=== PATIENT | male | born 1975 | race Caucasian/White ===

== ENCOUNTER 2020-02-27 21:19 | Outpatient (REF) | payer BC, SELFPAY ==
[2020-02-27 22:16] LABS: Abs Immature Grans 0.02 k/cumm (0.0-0.09); Absolute Basophil Count 0.03 k/cumm (0.0-0.2); Absolute Eosinophil Count 0.11 k/cumm (0.0-0.7); Absolute Lymphocyte Count 1.68 k/cumm (1.2-3.4); Absolute Monocyte Count 0.48 k/cumm (0.11-0.7); Absolute Neutrophil Count 4.22 k/cumm (1.2-6.7); Basophils % 0.5; Eosinophils % 1.7; HCT 40.4 % (40.0-50.0); HGB 14.3 g/dL (13.5-17.5); Immature Grans % 0.3 %; Lymphocytes % 25.7; Mean Corp. HGB Concentration 35.4 g/dL (32.0-36.0); Mean Corpuscular Hemoglobin 30.2 pg (27.0-33.0); Mean Corpuscular Volume 85.4 fL (80-95); Mean Platelet Volume 9.9 fL (8.0-11.0); Monocytes % 7.3; Neutrophils % 64.5; Platelet Count 271 x1000/uL (130-400); RBC 4.73 m/cumm (4.50-6.00); White Blood Cell Count 6.54 k/cumm (4.4-10.8)
[2020-02-27 22:23] LABS: ALT 44 U/L (16-63); AST 24 U/L (15-37); Albumin 4.2 g/dL (3.4-5.0); Alkaline Phosphatase 75 U/L (46-116); Anion Gap 12.5 mmol/L (3-11); BUN 27 mg/dL (7-18); Bilirubin, Total 0.6 mg/dL (0.2-1.0); CO2 23.5 mmol/L (21.0-32.0); CREATININE 1.42 mg/dL (0.70-1.30); Calcium 9.4 mg/dL (8.5-10.1); Chloride 99 mmol/L (98-107); Estimated GFR 53.67 (mL/min/1.73m2); Glucose 191 mg/dL (74-106); Potassium 4.7 mmol/L (3.5-5.1); Sodium 135 mmol/L (136-145); Total Protein 7.8 g/dL (6.4-8.2)
[2020-02-27 22:32] LABS: Hemoglobin A1C 7.8 % (3.8-5.6)
[2020-02-28 09:54] LABS: Calculated LDL 99 mg/dL (<100); Cholesterol 170 mg/dL (<200); HDL Cholesterol 44 mg/dL (40-60); Triglyceride 137 mg/dL (<150)
[2020-02-29 14:58] LABS: ANA Interpretation Positive (Negative)
== END 2020-02-27 21:39 ==
LOC: LBN 21:19
PROVIDERS: PCP Family Medicine; Visit Provider Family Medicine
DX: E78.5 Hyperlipidemia, unspecified (principal); E11.65 Type 2 diabetes mellitus with hyperglycemia; R20.8 Other disturbances of skin sensation
CPT/HCPCS: 80053; 80061; 83036; 85025; 86038

== ENCOUNTER 2020-02-29 08:02 | Outpatient (CLI) | payer BC, SELFPAY ==
[2020-03-05 21:58] LABS: SARS-CoV-2 RNA Undetected (Undetected); SARS-CoV-2 Specimen Source Nasopharynx
== END 2020-02-29 08:22 ==
PROVIDERS: PCP Family Medicine; Visit Provider Family Medicine
DX: Z11.59 Encounter for screening for other viral diseases (principal)
CPT/HCPCS: U0003

== ENCOUNTER 2022-04-30 02:06 | Outpatient (CLI) | payer BC, SELFPAY ==
--- OUTSIDE RECORDS SUMMARY | 2022-04-30 02:08 | XMS_ITS | Encounter Summary ---
:1975 Author Organization [facility] Address [address] [place] [address] Care Team Providers Name Role Phone Unavailable Primary Care Provider Unavailable Encounter Details Date Type Department Care Team Description 04/22/2006 Results Only [facility] - Zunilda Fraser, Chr istopher, conversion DO [address] [facility] [address] [facility] [address] FAIR[address] [place], [place] [address] [place] [id number] (Wo rk) Social History Tobacco Use Types Packs/Day Years Used Date Never Assessed Sex Assigned at Date Recorded Not on file documented as of this encounter Plan of Treatment Not on filedocumented as of this encounter Procedures Procedure Name Priority Date/Time Associated Diagnosis Comme nts SURGICAL PATHOLOGY Routine 04/22/2006 0:00 EDT Re sults for this procedure are i n the results section. documented in this encounter Results SURGICAL PATHOLOGY (04/22/2006 0:00 EDT) Pathology Report: SURGICAL PATHOLOGY REPORT [facility] Reports generated via electronic interface contain paige ginal data; LAB however they are lacking the format of the original re port. Caution should be taken when reading/interpreting unfo rmatted reports. Name: ? KILLIAN KRISHNAN ? Accession #: ? [id number] ? : ? 1975 (Age: 30) ??M ? Collect Date: ? 04/22/2006 ? Location: ? [facility] ? Receive Date: ? 006 ? Provider: SUNIL FRASER DO Copy to: ROBINSON TIMMONS MD ? Final Pathologic Diagnosis: A. ?Stomach, antrum, biopsy: 1. ?Antral and body type mucosa with no specific pathologic features. See comment. B. ?Esophagus, distal, biopsy: ? 1. ??Hyperplastic squ amous mucosa with increased intraepithelial eosinophils (max average 42/hpf). ??See comment. ? Comment: ? The histologic features are still compatible wi th reflux changes. Eosinophilic esophagitis cannot be ruled out. Correlat ion with endoscopic appearance and clinical feat ures is essential. Simultaneous biopsies taken from the proximal and/or mid esop hagus may help to resolve this issue. This case has been reviewed at the intrade partmental consultation conference. (Dr. Grove)/[facility] Document reviewed and electronically signed by: LUI GROVE MD Report ??Date: 04/27/2006 12:04 By the signature above, the attending physician certif ies that he/she has personally conducted a gross and/or microscopic examin ation of the described specimens and rendered or confirmed the above diagnosi s. Specimen(s) Received: A. ?Bx antrum B. ?Bx distal esophagus Clinical History: ? Gastroscopy s/p removal FB esophagus Gross Description: ? Received in Hollande' s fixative labelled Eulogio and antrum bx are two tse-pink irregular soft tiss ue fragments measuring 0.2 x 0.2 x 0.2 cm and 0.3 x 0.3 x 0.2 cm. ??The specimen is entirely submitted as (A). Received in Hollande's fixative labelled Darrell gh and bx distal esophagus are two tse-pink irregular soft tissue fragments measuring 0.3 x 0.2 x 0.2 cm and 0.3 x 0.3 x 0.2 cm. ??The specimen is entirely sub mitted as (B). (Asia Zavala)/mpl End of Report Specimen Performing Organization Address City/State/ZIP Code Phon e Number [facility] [address] [place] [address] SERVICES [facility] [address] [place] [address] documented in this encounter Visit Diagnoses Not on filedocumented in this encounter
--- OUTSIDE RECORDS SUMMARY | 2022-04-30 02:08 | XMS_ITS | Encounter Summary ---
:1975 Author Organization [facility] Address [address] [place] [address] Care Team Providers Name Role Phone Unavailable Primary Care Provider Unavailable Encounter Details Date Type Department Care Team Description 11/02/1999 Results Only [facility] - Syd Brooke MD conversion [address] [place] [address] [place] [address] [phone] Social History Tobacco Use Types Packs/Day Years Used Date Never Assessed Sex Assigned at Date Recorded Not on file documented as of this encounter Plan of Treatment Not on filedocumented as of this encounter Procedures Procedure Name Priority Date/Time Associated Diagnosis Comme [facility] CYTOPATHOLOGY Routine 11/02/1999 7:30 EST Results for this procedure are i n the results section . documented in this encounter Results CYTOPATHOLOGY (11/02/1999 7:30 EST) Pathology Report: CYTOPATHOLOGY REPORT [facility] Reports generated via electronic interface contain paige ginal data; however they are lacking the format of the original re port. Caution should be taken when reading/interpreting unfo rmatted reports. Name: ? KILLIAN KRISHNAN ? Accession #: ? [id number] : ? 1975 (Age: 23) ??M ?Collect Date: ? 03/01/2000 Location: ?Receive Date: ? 11/02/1999 Provider: ? SYD POTTER MD Copy to: ?SYD MEHTA MD ? CYTOLOGIC DIAGNOSIS: CYTOLOGIC DIAGNOSIS ? Urinary tract cytologic material, voided: ? No malignant cells identified; scant cellularit y. ? [facility] Archived Tests - Final Diagnosis Text Field: Clinical History : ;Hematuri a. ??H/O testicular CA. ??Previous chemo/radiation 5 years ago. Gross Description : 1 tube of Cytolyt Document reviewed and electronically signed by: ? Conversion for FORREST MONTANO Report Date: ??11/02/1999 00:00 By the signature above, the attending physician certif ies that he/she has personally conducted a gross and/or microscopic examin ation of the described specimens and rendered or confirmed the above diagnosi s. Specimen Type: ? Urinary Tract Cytologic Material, Voided Clinical History: ? Gross Description: ? End of Report Specimen Performing Organization Address City/State/ZIP Code Phon e Number [facility] [address] [place] [address] SERVICES [facility] [address] [place] [address] documented in this encounter Visit Diagnoses Not on filedocumented in this encounter
--- OUTSIDE RECORDS SUMMARY | 2022-04-30 02:08 | XMS_ITS | Encounter Summary ---
:1975 Author Organization [facility] Address [address] [place] [address] Care Team Providers Name Role Phone Unknown, Provider Primary Care Provider Encounter Details Date Type Department Care Team Description 02/28/2020 Lab Requisition [facility] Outr Resulting Lab, Pathology & Laboratory Provider [facility] [address] [place], [place] [address] Social History Tobacco Use Types Packs/Day Years Used Date Never Assessed Sex Assigned at Date Recorded Not on file documented as of this encounter Plan of Treatment Not on filedocumented as of this encounter Procedures Procedure Name Priority Date/Time Associated Diagnosis Comme nts ANTI NUCLEAR AB Routine 02/27/2020 7:45 EDT Resul ts for this (FRANK), IFA procedure are i n the results section. documented in this encounter Results (ABNORMAL) ANTI NUCLEAR AB (FRANK), IFA (02/27/2020 7:45 EDT) FRANK Interpretation Positive (A) Negative [facility] Comment: [facility] For titers greater than or e qual to 1:160 (except the centromere and nucleolar patterns) it is recommended that specific follow-up autoantibody testing ??(such as for dsDNA and Extractable Nuclear Antig SERVICES ens) be performed on all diffuse and/or speckled patterns NOTE: For add-on testing dsD NA is stable for 7 days refrigerated while Extractable Nuclear Antigens are only stable for 48 hours refrigerated. FRANK Titer and Pattern 1:[address] [facility] 1 Speckled [facility] Specimen Blood - Venous blood (substance) Narrative [facility] - 02/29/2020 14:54 EDT Results were obtained with the INOVA NOV A Lite HEp-2 FRANK Kit by indirect immunofluorescence. Performing Organization Address City/State/ZIP Code Phon e Number [facility] [address] [place] [address] SERVICES documented in this encounter Visit Diagnoses Not on filedocumented in this encounter Care Teams Tank Builder Helper Relationship Specialty Start Date End Date Unknown, Provider, PCP - General 07/08/15 documented as of this encounter
--- OUTSIDE RECORDS SUMMARY | 2022-04-30 02:09 | XMS_ITS | Encounter Summary ---
:1975 [place] [address] Care Team Providers Name Role Phone Ilsa Smith MD Primary Care Provider Encounter Details Date Type Department Care Team Description 04/24/2012 Telephone Allergy at [facility] Jada Guerra MD [facility] [place] [address] ALLERGY AND IMMUNOLOGY [phone] [place], [place] [address] (Wo rk) Social History Tobacco Use Types Packs/Day Years Used Date Never Smoker Sex Assigned at Date Recorded Not on file documented as of this encounter Miscellaneous Notes Telephone Encounter - Jada Guerra MD - 04/24/2012 8:18 AM EDT pt was notified of negative RAST to latex documented in this encounter Plan of Treatment Not on filedocumented as of this encounter Visit Diagnoses Not on filedocumented in this encounter Care Teams Meat Specialist Relationship Specialty Start Date End Date Ilsa Smith MD PCP - General 03/31/12 05/02/[address] [place] [address] documented as of this encounter
--- OUTSIDE RECORDS SUMMARY | 2022-04-30 02:09 | XMS_ITS | Encounter Summary ---
:1975 [place] [address] Care Team Providers Name Role Phone Ilsa Smith MD Primary Care Provider Encounter Details Date Type Department Care Team Description 10/22/2021 Orders Only Vascular Surgery Mariama Barreto APRN [facility] [place] [address] VASCULAR SURGERY [phone] [place], [place] [address] (Wo rk) Social History Tobacco Use Types Packs/Day Years Used Date Never Smoker 0 0 Smokeless Tobacco: Never Used Alcohol Use Standard Drinks/Week Comments Yes 14 (1 standard drink = 0.6 oz pure alcoh ol) Sex Assigned at Date Recorded Not on file documented as of this encounter Miscellaneous Notes Addendum Note - Mariama Barreto APRN - 10/22/2021 8:58 AM EST Addended by: MARIAMA BARRETO on: 10/22/2021 09:00 AM Modules accepted: Orders documented in this encounter Plan of Treatment Not on filedocumented as of this encounter Visit Diagnoses Not on filedocumented in this encounter Care Teams Product Support Technician Relationship Specialty Start Date End Date Ilsa Smith MD PCP - General Family Medicine 03/05/[address] [place], [place] [address] documented as of this encounter
--- OUTSIDE RECORDS SUMMARY | 2022-04-30 02:09 | XMS_ITS | Encounter Summary ---
:1975 Author Organization [place] [place] [address] Care Team Providers Name Role Phone Ilsa Smith MD Primary Care Provider Encounter Details Date Type Department Care Team Description 03/05/2020 Laboratory Appointment Lab at [facility] Critical lower limb ischemia ; [facility] [place] [phone] Social History Tobacco Use Types Packs/Day Years Used Date Never Smoker 0 0 Smokeless Tobacco: Never Used Alcohol Use Standard Drinks/Week Comments Yes 14 (1 standard drink = 0.6 oz pure alcoh ol) Sex Assigned at Date Recorded Not on file documented as of this encounter Plan of Treatment Not on filedocumented as of this encounter Procedures Procedure Name Priority Date/Time Associated Comments Diagnosis HC UA W/OUT Routine 03/05/2020 1:00 PM Critical lower limb Re sults for this MICROSCOPIC EDT ischemia procedure are in Pre-op testing the results section. ABORH RECHECK STATUS Routine 03/05/2020 12:46 Res ults for this PM EDT procedure are i n the results section. HC VENIPUNCTURE Routine 03/05/2020 12:46 Critical lower limb PM EDT ischemia Pre-op testing ABO/RH TYPING Routine 03/05/2020 12:46 Critical lower limb Res ults for this PM EDT ischemia procedure are in Pre-op testing the results section. ANTIBODY SCREEN Routine 03/05/2020 12:46 Critical lower limb R esults for this PM EDT ischemia procedure are in Pre-op testing the results section. documented in this encounter Results (ABNORMAL) Urinalysis without microscopic (03/05/2020 1:00 PM EDT) [facility] Method Time Signature Glucose UA >=1000 Negative [facility] (Critical) mg/dL [facility] Comment: Urinalysis result NOT critical without a combination of Glucose greater than or equal to 500 mg/dL AND Ketones greate r than or equal to 80 mg/dL Protein UA Negative Negative mg/dL [facility] Bilirubin UA Negative Negative mg/dL [facility] Comment: Clinical correlation required for positi ve Urine Bilirubin results as false positive may occur with some drugs and d rug related products. If a false positive is suspected a serum total bili toure should be considered if clinically indicated. Urobilinogen UA Normal Normal mg/dL [facility] pH UA 5.5 5.0 - 8.0 [facility] Blood UA Negative Negative mg/dL [facility] Ketones UA Negative Negative mg/dL [facility] Nitrite UA Negative Negative [facility] Leukocytes UA Negative Negative [facility] Appearance UA Clear Clear [facility] Spec [place] UA 1.019 1.006 - 1.030 [facility] Color UA Yellow Yellow [facility] Specimen Anatomical Collection Method Collection Time Receive d Time (Source) Location / / Volume Laterality Urine specimen 03/05/2020 1:00 PM 020 1:08 (specimen) EDT PM EDT Resulting Agency Comment Spec In Lab Byron Moreland MD URINE ORDERABLES Performing Organization Address City/State/[place] [address] ABORH Recheck Status (03/05/2020 12:46 PM EDT) [facility] Method Time Signature ABORH Type Completed [facility] Specimen Anatomical Collection Method Collection Time Receive d Time (Source) Location / / Volume Laterality Blood specimen 03/05/2020 12:46 0 (specimen) PM EDT 12:56 PM EDT Resulting Agency Comment Spec In Lab Byron Moreland MD BLOOD BANK ORDERABLES Performing Organization Address City/State/[place] [address] Antibody screen (03/05/2020 12:46 PM EDT) Patholo gist Method Time Signature Ab Screen Negative [facility] Expires at 03/17/2020 [facility] 2359 on: [facility] Specimen Anatomical Collection Method Collection Time Receive d Time (Source) Location / / Volume Laterality Blood specimen 03/05/2020 12:46 0 (specimen) PM EDT 12:56 PM EDT Resulting Agency Comment Spec In Lab Byron Moreland MD BLOOD BANK ORDERABLES Performing Organization Address City/[facility]/[place] [address] ABO/Rh Typing (03/05/2020 12:46 PM EDT) P athologist Signature ABORh Type A Neg [facility] Specimen Anatomical Collection Method Collection Time Receive d Time (Source) Location / / Volume Laterality Blood specimen 03/05/2020 12:46 0 (specimen) PM EDT 12:56 PM EDT Resulting Agency Comment Spec In Lab Byron Moreland MD BLOOD BANK ORDERABLES Performing Organization Address City/[facility]/[place] [address] documented in this encounter Visit Diagnoses Diagnosis Critical lower limb ischemia Unspecified circulatory system disorder Pre-op testing Preoperative examination, unspecified documented in this encounter Care Teams Clerical Assigner Relationship Specialty Start Date End Date Ilsa Smith MD PCP - General Family Medicine 03/05/[address] [place] [address] documented as of this encounter
--- OUTSIDE RECORDS SUMMARY | 2022-04-30 02:09 | XMS_ITS | Encounter Summary ---
:1975 [place] [address] Care Team Providers Name Role Phone Ilsa Smith MD Primary Care Provider Encounter Details Date Type Department Care Team Description 04/03/2020 Tech Visit Vascular Lab at [facility] [place] [address] Social History Tobacco Use Types Packs/Day Years [...] Name Priority Date/Time Associated Diagnosis Comme nts [place], LEGS, MULTIPLE Routine 04/03/2020 1:16 PM Blue toe syndro me of Results for this LEVELS EDT left lower extremity procedu re are in the results section. documented in this encounter Results [place]ST[place], legs, multiple levels (04/03/2020 1:16 PM EDT) Component Value Ref Test Analysis Performed At [facility] Range Method Time Signature VB Text Department: Vascular Surgery Lab [facility] Report Patient: [id number] (KILLIAN KRISHNAN) CPT: 45675 ICD10: I75.022 Referring Physician: TENISHA MORELAND MD ?? Phone: Indications: S/p left common femoral endarterectomy, ? bermeo e in [place] Diabetes mellitus: Yes ICD10 Diagnosis Code: I75.022 Findings: Right ?Pressure (mm Hg) ?? [place] ??Waveform ?TBI ?? Brachial Artery ?148 ? Dorsalis Pedis (Ankle) Arter y ?168 ? 1.14 ??Triphasic ? Posterior Tibial (Ankle) Art dante ??183 ? 1.24 ??Triphasic ? Great Toe ?138 ?0.93 ?? Left ? Pressure (mm Hg) ?? [place] ??Waveform ?TBI ?? Brachial Artery ?141 ? Dorsalis Pedis (Ankle) Arter y ?177 ? 1.20 ??Triphasic ? Posterior Tibial (Ankle) Art dante ??182 ? 1.23 ??Triphasic ? Great Toe ?122 ?0.82 ?? Interpretation: RIGHT: No significant lower extremity arterial occlusive dis ease. Normal ankle/brachial pressure ratios, ankle Doppler wa veforms and toe pressures. No identifiable change when compared to the previou s exam performed on 03/05/2020. LEFT: No significant lower extremity arterial occlusive dise ase. Normal ankle/brachial pressure ratios, ankle Doppler waveforms and toe pressures. Significant improvement compared to previous exam performed on 03/05/2020. NOTE: Hypertension is present based on D oppler derived systolic brachial blood pressure. Previous ABIs with change from previous value: Date ?RIGHT DP ?? RIGHT PT ?? RT GR TOE ??RT Sec T OE ??1.13 ? 1.26 ? 0.81 ? ---- Current ? 1.14(+.01) 1.24(-.02) 0.93(+.12) ---- Date ?LEFT DP ?LEFT PT ?LT GR TOE LT Sec T OE ??0.75 ? 0.83 ? 0.53 ? ---- Current ? 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
--- OUTSIDE RECORDS SUMMARY | 2022-04-30 02:09 | XMS_ITS | Encounter Summary ---
:1975 Author Organization [facility] [place] [address] Care Team Providers Name Role Phone Ilsa Smith MD Primary Care Provider Encounter Details Date Type Department Care Team Description 03/05/2020 [facility] [place] [address] Social History Tobacco Use Types Packs/Day Years Used Date Never Smoker 0 0 Smokeless Tobacco: Never Used Alcohol Use Standard Drinks/Week Comments Yes 14 (1 standard drink = 0.6 oz pure alcoh ol) Sex Assigned at Date Recorded Not on file documented as of this encounter Last Filed Vital Signs Vital Sign Reading Time Taken Comments Blood Pressure - - Pulse - - Temperature - - Respiratory Rate - - Oxygen Saturation 99% 03/05/2020 12:01 PM EDT Inhaled Oxygen Concentration - - Weight - - Height - - Body Mass Index - - documented in this encounter Progress Notes Maki Vaughan RN - 03/05/2020 12:30 PM EDT PAT questionnaire reviewed with patient while in Pre Admission testing. Patient reports no problems with anesthesia in the past. Pre-operative instruction booklet reviewed. Patient verbalizes a good understanding of all information. PLAN Testing: T+S and urine done. Patient sent to for a cxr. Special medication instructions: plavix / ASA - patient to continue. Procedure date: Not booked - tentative 03/14 - Dr. Moreland documented in this encounter Plan of Treatment Not on filedocumented as of this encounter Visit Diagnoses Not on filedocumented in this encounter Care Teams Infantry Weapons Officer Relationship Specialty Start Date End Date Ilsa Smith MD PCP - General Family Medicine 03/05/[address] [place] [address] documented as of this encounter
--- OUTSIDE RECORDS SUMMARY | 2022-04-30 02:09 | XMS_ITS | Encounter Summary ---
:1975 Author Organization [facility] [place] [address] Care Team Providers Name Role Phone Alisia Cuellar MD Primary Care Provider Reason for Referral Consultation (Routine) - Closed Specialty Diagnoses / Procedures Referred By Contact Refer red To Contact Vascular Surgery Diagnoses Blue toe syndrome of left lower extremity Marcus Shaikh APRN [facility] Vascular Surg [address] [facility] [place] [address] [place] [address] Phone: Referral ID Status Reason Start Date Expiration Date Visits V isits Requested Authorized [id number] Closed Consult, 03/01/2020 03/01/2021 1 1 Test & Treat Reason for Visit Reason Comments Toe Pain Encounter Details Date Type Department Care Team Description 03/01/2020 Emergency Emergency Department Jada Bl ue toe syndrome of left lower extremity; [facility]ital Pain in toe of left foot; [facility] Kelly damon Type 2 diabetes mellitus wit h other specified complication, without long-term current use of insulin; [place] [address] PAD (peripheral artery disea se); [phone] Ischemia of chuck t Social History Tobacco Use Types Packs/Day Years Used Date Never Smoker Smokeless Tobacco: Never Used Sex Assigned at Date Recorded Not on file documented as of this encounter Last Filed Vital Signs Vital Sign Reading Time Taken Comments Blood Pressure 161/81 03/01/2020 3:48 PM EDT Pulse 79 03/01/2020 11:14 AM EDT Temperature 36.8 ??C (98.2 ??F) 03/01/2020 11:14 AM EDT Respiratory Rate 16 03/01/2020 11:14 AM EDT Oxygen Saturation 96% 03/01/2020 3:48 PM EDT Inhaled Oxygen Concentration - - Weight 89.4 kg (197 lb) 03/01/2020 11:14 AM EDT Height - - Body Mass Index 28.27 04/19/2012 9:59 AM EDT documented in this encounter Discharge Instructions Discharge InstructionsMarcus Shaikh APRN - 03/01/2020 4:26 PM EDT You were seen in the emergency department and evaluated for pain and discoloration in toes in your left foot. You were seen by vascular surgery and had CT imaging that showed plaque buildup in one of the arteries in your left leg which is likely the source of your symptoms. You have been started on 2 new medications, Plavix which is an antiplatelet medicine and Lipitor which is a statin. Your potassium was mildly elevated but improved to 5.0 after IV fluids. You may wish to discuss withyour primary care provider whether your Lisinopril is contributing to this. Take these as directed, as we discussed being on Plavix and continuing your aspirin 81 mg by mouth daily which we recommend does increase your risk of bleeding. Follow-up with your primary care provider in 7-10 days. You have been referred to vascular surgery and they will follow-up with you next week. Return to the ED with any new, worsening or concerning symptoms, progressive numbness, tingling or cold toes/extremity. AttachmentsThe following attachments cannot be sent through Care Everywhere.PAD (Peripheral Arterial Disease): Leg ([place])Aspirin and Antiplatelets: Cardiovascular Prevention: Safety ([place])documented in this encounter Medications at Time of Discharge Medication Sig Dispensed Refills Start Date End Date lisinopriL Take 20 mg by mouth 0 01/09/2020 (Prinivil;Zestril) 20 mg daily. Tablet metFORMIN (GLUCOPHAGE) Take 500 mg by 0 0 1,000 mg Tablet mouth 2 times daily (with meals). aspirin EC 81 mg Tablet, Take 81 mg by mouth 0 Delayed Release (E.C.) daily. clopidogreL (Plavix) 75 mg Take 1 tablet by 30 tablet 0 11/201903/16/2020 Tablet mouth daily. atorvastatin (Lipitor) 40 Take 1 tablet by 30 tablet 0 11/201903/16/2020 mg Tablet mouth every evening. documented as of this encounter ED Notes Brisa Fong RN - 03/01/2020 3:23 PM EDT Pt reports worsening pain. 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 Ambulatory to restroom with stable gait. Marcus Shaikh APRN - 03/01/2020 12:20 PM EDT Patient Name: Sameer Krishann Patient Age: 44 y.o. Patient : 1975 Encounter Date: 03/01/2020 Chief Complaint Toe Pain History of Present Illness Sameer Krishnan is a 44 y.o. male with PMH notable for type 2 diabetes mellitus, hypertension who presents for evaluation of cold toes. Patient reports 3weeks discoloration, coolness and pain in his left great toe. This similar thing happened in August but resolved on its own. He called his PCP today as he noted that his fourth and fifth toes were also cool and blue. This has not happened in his hands or his right foot. He denies any numbness or tingling in his toesor foot. Pain is worse with ambulation and dependency however it does bother him at night. He has type 2 diabetes with his last hemoglobin A1c around 7%. He takes metformin but reports he is only able to tolerate half a tablet in the morning. He does not check his glucose regularly. He has not paid particular attention to his diet regarding his diabetes. He is a non-smoker and no tobacco use. Fever, chills. No other skin changes or rash. No chest pain, tightness or pressure. No shortness of breath or cough. No abdominal pain or change to bowel or bladder. Has not noticed any significant swelling in his extremities. Does not notice any wounds. The history is provided by the patient. Review of Systems ROS as above with pertinent positives and negatives, otherwise 10 systems are reviewed and negative. PMH, PSH, SH, medications and allergies reviewed & updated in chart as appropriate. Physical Exam BP 161/81 Pulse 79 Temp 36.8 ??C (98.2 ??F) (Oral) Resp 16 Wt 89.4 kg (197 lb) SpO2 96% BMI 28.27 kg/m?? Physical Exam Constitutional: General: He is not in acute distress. Appearance: Normal appearance. HENT: Head: Normocephalic. Nose: Nose normal. Mouth/Throat: Mouth: Mucous membranes are moist. Pharynx: Oropharynx is clear. Eyes: Extraocular Movements: Extraocular movements intact. Pupils: Pupils are equal, round, and reactive to light. Neck: Musculoskeletal: Normal range of motion and neck supple. Cardiovascular: Rate and Rhythm: Normal rate and regular rhythm. Pulses: Dorsalis pedis pulses are detected w/ Doppler on the right side. Posterior tibial pulses are detected w/ Doppler on the right side. Pulmonary: Effort: Pulmonary effort is normal. No respiratory distress. Breath sounds: Normal breath sounds. Abdominal: General: Bowel sounds are normal. Palpations: Abdomen is soft. Tenderness: There is no abdominal tenderness. Musculoskeletal: Normal range of motion. Right lower leg: No edema. Left lower leg: No edema. Skin: Comments: Left first toe cool and bluish in color with some mottling. Left fourth and fifth toe also slightly cool and slightly bluish in color. With dependency has increased rubor. Also with dependency has some question of livedo reticularis in the foot. Neurological: General: No focal deficit present. Mental Status: He is alert and oriented to person, place, and time. Mental status is at baseline. Psychiatric: Mood and Affect: Mood normal. Behavior: Behavior normal. ED Course ED Course as of Mar 01 2058 Sat Mar 01, 2020 1225 Consult to vascular surgery 1229 EKG reviewed, no previous EKG available for comparison, nonspecific ST abnormalities noted in V2 however also noted wandering baseline, no changes in contiguous leads, no T wave inversion, incomplete right bundle. EKG 12 Lead 1254 WBC: 6.2 1254 Hemoglobin: 14.3 1254 Hematocrit: 40.7 1254 Platelets: 218 1327 Hemoglobin A1C(!): 7.9 1327 BUN(!): 24 1327 Creatinine: 1.17 1327 Sodium: 135 1327 No EKG findings Potassium(!): 5.5 1612 Potassium: 5.0 1616 Prelim-- 1. No significant stenosis of the lower extremity runoff, with specific attention to the left lower extremity. 2. Severe focal narrowing at the proximal left common femoral artery. 3. Focal severe narrowing at the origin of the SMA and bilateral renal arteries. CT Angiogram Lower Extremity Bilat (Generic) History, examination Vitals, nursing notes reviewed Diagnostics Reviewed and interpreted independently Imaging CT Angiogram Lower Extremity Bilat (Generic) Final Result 1. No significant stenosis of the lower extremity runoff, with specific attention to the left lower extremity. 2. Severe focal narrowing at the proximal left common femoral artery. 3. Focal severe narrowing at the origin of the SMA and bilateral renal arteries. Preliminary report signed by: Juliette Peralta at 03/01/2020 3:39 PM I have personally reviewed the image(s) and the resident's interpretation and agree with the findings, Shakila Joseph at 03/01/2020 5:04 PM Thank you for letting us participate in the care of this patient. For questions regarding this report, please contact the number below. Labs Recent Results (from the past 24 hour(s)) Basic Metabolic Panel (non-fasting) Result Value Ref Range Glucose Lvl 171 65 - 199 mg/dL BUN 24 (H) 10 - 20 mg/dL Creatinine 1.17 0.80 - 1.50 mg/dL Sodium 135 135 - 145 mmol/L Potassium 5.5 (H) 3.5 - 5.0 mmol/L Chloride 101 98 - 107 mmol/L CO2 23 22 - 31 mmol/L Anion Gap 11 5 - 15 mmol/L Calcium 9.8 8.5 - 10.5 mg/dL eGFR 74 >=60 mL/min/1.73 m?? eGFR 86 >=60 mL/min/1.73 m?? Prothrombin Time Result Value Ref Range PT 10.7 9.4 - 12.5 sec INR 0.9 APTT Result Value Ref Range PTT 33 25 - 37 sec Hemoglobin A1c Result Value Ref Range Hemoglobin A1C 7.9 (H) 4.3 - 5.6 % Est Avg Gluc 180 mg/dL Lipid Panel (Reflex Direct LDL) Result Value Ref Range Chol, Total 146 mg/dL Triglycerides 110 mg/dL HDL 44 mg/dL LDL Cholesterol 80 mg/dL Chol/HDL Ratio 3.3 ratio Lipid Interpretation See Note Hemogram Result Value Ref Range WBC 6.2 4.0 - 9.5 x10(3)/mcL RBC 4.76 4.58 - 5.54 x10(6)/mcL Hemoglobin 14.3 13.7 - 16.5 gm/dL Hematocrit 40.7 40.5 - 48.5 % MCV 85.5 82.9 - 93.1 fL MCH 30.0 27.5 - 32.1 pg MCHC 35.1 32.0 - 35.7 gm/dL Platelets 218 145 - 357 x10(3)/mcL RDWSD 39.1 36.0 - 45.0 fL RDWCV 12.5 11.4 - 13.8 % MPV 9.3 7.6 - 12.9 fL nRBC % Auto 0.0 % nRBC Abs Auto 0.000 0.000 - 0.000 x10(3)/mcL Differential, Automated Result Value Ref Range Neutrophils % 60.5 % Neutr Abs (ANC) 3.77 1.70 - 6.10 x10(3)/mcL Lymphocytes % 29.3 % Lymphocytes Abs 1.8 0.9 - 3.2 x10(3)/mcL Monocytes % 7.2 % Monocyte Abs 0.4 0.3 - 0.9 x10(3)/mcL Eosinophils % 2.2 % Eosinophils Abs 0.1 0.0 - 0.4 x10(3)/mcL Basophils % 0.5 % Basophils Abs 0.0 0.0 - 0.1 x10(3)/mcL Immature Gran % 0.30 % Qi Gran Abs 0.02 0.00 - 0.04 x10(3)/mcL Gold Tube HOLD Result Value Ref Range Gold Hold Sample in lab. Hepatic Function Panel Result Value Ref Range Total Protein 7.7 6.1 - 8.0 gm/dL Albumin 4.5 3.2 - 5.2 gm/dL AST 16 0 - 39 unit/L ALT 30 0 - 55 unit/L Alk Phos 68 40 - 130 unit/L Total Bilirubin 0.6 0.2 - 1.3 mg/dL Bili, Direct 0.1 0.0 - 0.3 mg/dL Potassium Result Value Ref Range Potassium 5.0 3.5 - 5.0 mmol/L Medications As noted below and documented in MAR Medications aspirin chewable tablet 243 mg (243 mg Oral Given 03/01/20 1237) iohexoL (OMNIPAQUE) 350 mg/mL solution 0-200 mL (150 mLs Intravenous Given 03/01/20 1433) sodium chloride 0.9% 1,000 mL IV bolus ( Intravenous Stopped 03/01/20 1400) acetaminophen (Tylenol) tablet 1,000 mg (1,000 mg Oral Given 03/01/20 1549) Procedures None MDM, Assessment and Plan MDM: 44 y.o. male who presents as above for evaluation of ischemic toes on left foot. He is afebrile and hemodynamically stable. Physical exam notable for decreased perfusion in the left first, fourth and fifth toes. Pedal pulses are intact as are popliteal. His labs are initially notable for a potassium of 5.5 which improved to 5 after IV normal saline, I suspect this may be secondary to his lisinopril and I discussed that he should talk about this with his physician who prescribes it. Vascular was consulted, a CT angiogram aorta with runoff was obtained which showed findings above; common femoral atherosclerosis which is likely source of symptoms. Hemoglobin A1c is 7.9%; we discussed that he should follow-up with his PCP as well regarding management of his diabetes including appropriate medication management, insulin if needed, diet control and glucose monitoring. Lipid panel is reassuring without any significant elevated glycerides or cholesterol. He received aspirin while here and Tylenol. EKG was reassuring. Also of note CT did not show any atherosclerotic aortic disease. Consideration was given to large arterial thrombosis/clot, paradoxical embolism, vasoconstriction/spasm. I suspect his symptoms are most consistent with blue toe syndrome. Assessment: 1. Blue toe syndrome of left lower extremity 2. Pain in toe of left foot 3. Type 2 diabetes mellitus with other specified complication, without long-term current use of insulin 4. PAD (peripheral artery disease) Plan: Discharge Medication List as of 03/01/2020 4:26 PM START taking these medications Details clopidogreL (Plavix) 75 mg Tablet Take 1 tablet by mouth daily., Disp-30 tablet, R-0, Normal atorvastatin (Lipitor) 40 mg Tablet Take 1 tablet by mouth every evening., Disp- 30 tablet, R-0, Normal I had a discussion with patient regarding dual antiplatelet therapy and increase with risk of bleeding, we discussed activity monitoring and restriction as well as increased risk of bleeding with minortrauma Referral to vascular surgery Continue aspirin 81 mg a day Follow up with PCP in 1 week, vascular Return precautions were discussed with the patient; patient expressed understanding and is in agreement with plan Dispo: Discharge to home This note was dictated, at least, in part with [employer] (formerly [employer]) Dictation software. Marcus Shaikh APRN 03/01/202101 documented in this encounter Miscellaneous Notes Consult Note - Tae Tyson MD - 03/01/2020 3:20 PM EDT [facility] Department of General Surgery Consult Note Consultation Requested by: Emergency department History of Present Illness: We are seeing Sameer Krishnan today for evaluation and advice about blue toe syndrome. Sameer Krishnan is a 44 y.o. male with a history of hypertension, diabetes (non-insulin dependent),testicular cancer and rhabdomyosarcoma who presents with approximately 3 weeks of left great toe pain and discoloration. He reports that symptoms first began in August. His left great toe became acutely painful and mottled in appearance. This initially improved but then recurred 3-4 weeks ago. This has persisted with waxing and waning severity. He notes that his left fourth toe is also painful and discolored. He has never experience similar symptoms. The pain wakes him from sleep. He reports trouble walking (limited by pain in the toes) but denies claudication, rest pain, tissue loss. He denies history of TN, CAD, or stroke. He also denies any history of lower extremity claudication and reports that before he was limited by left toe pain he is able to walk for miles without stoppingto rest. He has no personal or family history of bleeding or clotting disorders. Home medications include lisinopril and metformin. Past Medical History: Sameer Krishnan has no past medical history on file. Past Surgical History Sameer Krishnan has no past surgical history on file. Medications No current facility-administered medications on file prior to encounter. Current Outpatient Medications on File Prior to Encounter Medication Sig Dispense Refill ??? lisinopriL (Prinivil;Zestril) 20 mg Tablet Take 20 mg by mouth daily. ??? metFORMIN (GLUCOPHAGE) 1,000 mg Tablet Take 500 mg by mouth daily. ??? aspirin EC 81 mg Tablet, Delayed Release (E.C.) Take 81 mg by mouth daily. Allergies Allergies Allergen Reactions ??? Bandage [Adhesive Bandage] Rash ??? Pcn [Penicillins] CIS - Hives Family History: The patient's family history is not on file. Social History: Sameer Krishnan reports that he has never smoked. He has never used smokeless tobacco. Review of Systems: As stated above, otherwise negative Physical Exam: Temp: [36.8 ??C (98.2 ??F)] Heart Rate: [79] Resp: [16] BP: (149-176)/(80-89) SpO2: [100 %] Heart Rate from SpO2: [75 bpm] General: alert, no acute distress Head: Atraumatic, non cyanotic Cardiac: Regular rate Pulmonary: nl respiratory effort, no WRR Abdominal: soft, non tender, non distended Neuro: grossly intact, follows commands, AAO x3. Extremities: LLE: D1 and D4 blue in color, tender, no tissue loss. Feet otherwise warm. Motor and sensory function intact. DP and PT signals. RLE: warm, pink, no tenderness, palpable DP and PT pulses. Labs: Recent Labs 03/01/20 1219 WBC 6.2 HGB 14.3 HCT 40.7 PLATELET 218 Recent Labs 03/01/20 1219 NA 135 K 5.5* CL 101 CO2 23 BUN 24* CREATININE 1.17 No results for input(s): AST, ALT, ALKPHOS, BILITOT, BILIDIR in the last 7068 hours. Recent Labs 03/01/20 1219 CALCIUM 9.8 Recent Labs 03/01/20 1219 PT 10.7 INR 0.9 PTT 33 No results for input(s): CK, TROPONINT, PROBNP in the last 168 hours. No results for input(s): CRP, SEDRATE in the last 7068 hours. Imaging: CT ANGIOGRAM LOWER EXTREMITY BILAT IMPRESSION 1. No significant stenosis of the lower extremity runoff, with specific attention to the left lower extremity. 2. Severe focal narrowing at the proximal left common femoral artery. 3. Focal severe narrowing at the origin of the SMA and bilateral renal arteries. Impression: Sameer Krishnan is a 44 y.o. male with a history of hypertension, diabetes (non-insulindependent), testicular cancer and rhabdomyosarcoma who presents with symptoms consistent with blue toe syndrome. A CT-A aorta with lower extremity runoff was obtained with revealed focal narrowing at the proximal left [facility] as well as narrowing at the origin of the SMA and renal arteries. No other significant findings were noted. Stable for discharge to home with close follow up; please see recommendations to follow. Recommendation: - Patient should be started on daily [id number], plavix 75mg, and atorvastatin 40mg. - He should follow up in vascular surgery clinic on Tuesday, 03/05. Vascular surgery will coordinatethis appointment. Thank you for this consult. If you have any questions regarding this consult, please page [phone] if you have any further questions. Alex Lynne MD General Surgery Consult Pager [phone] Vascular Surgery Senior Patient seen. History of L D1 blue toe in August which resolved and then over last 3-4 weeks D1 blue again with D4 also now blue over last week. Discussed possible etiologies. Discussed importance of ensuring excellent glucose control. Initiation of asa, plavix, high intensity statin and taking thesemedications regularly. CTA, while did not visualize thoracic aorta, demonstrates some infrarenal aortic plaque with L ilic and MANAGER [facility] disease as possible sources of his primarily L sided emboli. Plan for clinic visit this week with Dr. Moreland. Tae Tyson MD ED Triage - Alpesh Dupont RN - 03/01/2020 11:18 AM EDT Pt to ED 10B for c/o left foot/toe pain 7/10 at rest with concern for clot or circulation problem per PCP. Per pt, symptoms began in August while on vacation in [place]. Pt thought it was just a sunburn. Upon calling his PCP today due to worsening pain, he was told to come to [facility] for concern for possible clot. A/o x 4. Skin wpd. Great toe and second third toes of left foot slightly dusky in color. Pt able to ambulate to room with no obvious discomfort but states pain is worse standing or ambulating. documented in this encounter Plan of Treatment Scheduled Referrals Name Type Priority Associated Diagnoses Order S chedule Referral to Outpatient Referral Routine Blue toe syndrome of Ordered: Vascular Surgery left lower extremity 11/2019 documented as of this encounter Procedures Procedure Name Priority Date/Time Associated Comments Diagnosis HC POTASSIUM STAT 03/01/2020 3:20 PM Results f or this EDT procedure are i n the results section. CT ANGIOGRAM AORTA STAT 03/01/2020 2:32 PM Ischemia of foot Results for this LOWER EXTREMITY RUNOFF EDT proce dure are in the results section. HEMOGRAM STAT 03/01/2020 12:19 Results for this PM EDT procedure are i n the results section. DIFFERENTIAL, AUTOMATED STAT 03/01/2020 12:19 Results for this PM EDT procedure are i n the results section. GOLD TUBE HOLD STAT 03/01/2020 12:19 Results f or this PM EDT procedure are i n the results section. HC PARTIAL STAT 03/01/2020 12:19 Results for this THROMBOPLASTIN TIME PM EDT procedur e are in the results section. HC PROTHROMBIN TIME STAT 03/01/2020 12:19 Resu lts for this PM EDT procedure are i n the results section. HC CBC,PLT & AUTO DIFF STAT 03/01/2020 12:19 PM EDT HC HEMOGLOBIN A1C STAT 03/01/2020 12:19 Result s for this PM EDT procedure are i n the results section. HEPATIC FUNCTION PANEL STAT 03/01/2020 12:19 R esults for this PM EDT procedure are i n the results section. LIPID PANEL (REFLEX STAT 03/01/2020 12:19 Resu lts for this DIRECT LDL) PM EDT procedure are i n the results section. BASIC METABOLIC PANEL STAT 03/01/2020 12:19 Re sults for this (NON-FASTING) PM EDT procedure are in the results section. EKG 12-LEAD STAT 03/01/2020 11:47 Results for this AM EDT procedure are i n the results section. documented in this encounter Results Potassium (03/01/2020 3:20 PM EDT) P athologist Signature Potassium 5.0 3.5 - 5.0 JADA DAYRON mmol/L [facility] Comment: Please note: ??Patients with WBC >100,00 0 may have falsely elevated Potassium levels. ??For accurate Potassium quantif ication in these patients send serum separator tube (gold top) for subsequent determinations. ??Contact the Clinical Chemistry Laboratory if there are any qu estions. Specimen Anatomical Collection Method Collection Time Receive d Time (Source) Location / / Volume Laterality Blood specimen 03/01/2020 3:20 PM 020 3:24 (specimen) EDT PM EDT Resulting Agency Comment Spec In Lab Marcus Shaikh APRN CHEMISTRY ORDERABLES Performing Organization Address City/State/ZIP Code Phon e Number [place] [id number] Angiogram Aortic Lower Extremity Runoff (03/01/2020 2:32 PM EDT) Anatomical Region Laterality Modality Abdomen Computed Tomography Specimen (Source) Anatomical Location Collection Method / Collectio n Time Received Time / Laterality Volume Impressions 03/01/2020 5:04 PM EDT 1. ??No significant stenosis of the lower extremity runoff, with specific attention to the left lower extremity. 2. ??Severe focal narrowing at the proxi mal left common femoral artery. 3. ??Focal severe narrowing at the origi n of the SMA and bilateral renal arteries. Preliminary report signed by: Juliette Peralta at 03/01/2020 3:39 PM I have personally reviewed the image(s) and the resident's interpretation and agree with the findings, Shakila cardozo 03/01/2020 5:04 PM Thank you for letting us participate in the care of this patient. For questions regarding this report, please contact e number below. ? Narrative 03/01/2020 5:04 PM EDT EXAMINATION: CT ANGIOGRAM LOWER EXTREMITY BILAT (GENERIC) CLINICAL HISTORY: left toes, ischemia; e ed stenosis, other pathology TECHNIQUE: Helical CTA of the abdomen, p yesica and lower extremities was performed following intravenous administ ration of 150cc of Omnipaque 350. MPRs were performed. COMPARISON: None FINDINGS: VASCULAR FINDINGS Abdominal aorta: Atherosclerotic calcifi cations and plaque throughout the abdominal aorta without hemodynamically significant stenosis. No aneurysm. Celiac: No stenosis. focal severe narrow ing at the origin of the splenic artery. SMA: Severe focal narrowing at the origi n. Right renal artery: Severe focal narrowi ng at the origin. Left renal artery: Severe focal narrowin g at the origin. UZIEL: No stenosis at origin. RIGHT LOWER EXTREMITY Common iliac artery: Widely patent. External iliac artery: Widely patent. Internal iliac artery: Widely patent. Common femoral artery: Widely patent. Superficial femoral artery: Widely paten t. Profundus femoral artery: Widely patent. Popliteal artery: Widely patent Anterior tibial artery: Widely patent. Tibio-peroneal trunk: Widely patent. Posterior tibial artery: Widely patent. Peroneal artery: Widely patent. Dorsalis pedis: Opacified. Plantar arteries: Opacified. LEFT LOWER EXTREMITY Common iliac artery: Widely patent. External iliac artery: Widely patent. Internal iliac artery: Severe focal narr owing at the origin. Common femoral artery: Severe focal narr owing at the proximal artery. Superficial femoral artery: Mild focal n arrowing at the mid thigh. Profundus femoral artery: Widely patent. Popliteal artery: Widely patent Anterior tibial artery: Widely patent. Tibio-peroneal trunk: Widely patent. Posterior tibial artery: Patent. Peroneal artery: Patent. Dorsalis pedis: Opacified. Plantar arteries: Opacified. NON-VASCULAR FINDINGS Lower chest: Normal. Liver: None Bile ducts: Nondilated. Gallbladder: No calcified gallstones. No rmal caliber wall. Pancreas: Normal attenuation without penny eneida dilatation. Spleen: Normal. Kidneys: Normal. Adrenals: Normal. Urinary Bladder: Apparent anterior bladd er wall thickening could be related to underdistention. Equivocal small right u reterocele with dilatation of mid and distal right ureter. The upper collectin g system is normal. No obstructive nephrograms seen. Lymph Nodes: No enlarged lymph nodes. Bowel: Nondilated, no wall thickening. ? ? Peritoneum and mesentery: No ascites, fr ee air, or loculated fluid collection. No mesenteric inflammation. Abdominal wall: Postsurgical changes sarita ng the anterior abdominal wall. Osseous structures: No suspicious findin gs. Marcus Wis[place] DISPATCHER AUTOMOBILE RENTAL IMG CT ORDERABLES Hepatic Function Panel (03/01/2020 12:19 PM EDT) athologist Signature Total Protein 7.7 6.1 - 8.0 [facility]/dL [facility] Albumin 4.5 3.2 - 5.2 [facility] gm/dL [facility] AST 16 0 - 39 [facility] DAY[place] unit/L [facility] ALT 30 0 - 55 [facility] [place] unit/L [facility] Alk Phos 68 40 - 130 [facility]/L [facility] Total 0.6 0.2 - 1.3 [facility] Bilirubin mg/dL [facility] Bili, Direct 0.1 0.0 - 0.3 [facility] [place] mg/dL [facility] Specimen Anatomical Collection Method Collection Time Receive d Time (Source) Location / / Volume Laterality Blood specimen Venous Draw / 03/01/2020 12:19 03/01/20 20 (specimen) Unknown PM EDT 12:36 PM EDT Resulting Agency Comment Spec In Lab Marcus [place] DISPATCHER [employer] RENTAL CHEMISTRY ORDERABLES Performing Organization Address City/State/[place] [address] Gold Tube HOLD (03/01/2020 12:19 PM EDT) athologist Signature Gold Hold Sample in [facility] lab. [facility] Specimen Anatomical Collection Method Collection Time Receive d Time (Source) Location / / Volume Laterality Blood specimen Venous Draw / 03/01/2020 12:19 03/01/20 20 (specimen) Unknown PM EDT 12:28 PM EDT Marcus [place]acaico[place] DISPATCHER [employer]BI[employer] RENTAL CHEMISTRY ORDERABLES Performing Organization Address City/[facility]/[place] [address] Differential, Automated (03/01/2020 12:19 PM EDT) P athologist Signature Neutrophils % 60.5 % [facility] Neutr Abs (ANC) 3.77 1.70 - [facility] 6.10 [facility] x10(3)/[facility] LABORATORY Lymphocytes % 29.3 % [facility] Lymphocytes Abs 1.8 0.9 - 3.2 [facility] x10(3)/[facility] LABORATORY Monocytes % 7.2 % [facility] Monocyte Abs 0.4 0.3 - 0.9 [facility] x10(3)/[facility] LABORATORY Eosinophils % 2.2 % [facility] Eosinophils Abs 0.1 0.0 - 0.4 [facility] x10(3)/[facility] LABORATORY Basophils % 0.5 % [facility] Basophils Abs 0.0 0.0 - 0.1 [facility] x10(3)/[facility] LABORATORY Immature Gran % 0.30 % [facility] Comment: Immature granulocytes(IG's)percentage an d absolute count will include metamyelocytes, myelocytes, and promyelo cytes. Blood smears from CBCs yielding IG's will be scanned manually for concor dance. If this scan disagrees with the automated IG or if promyelocytes are not ed, a manual differential will be performed. Qi Gran Abs 0.02 0.00 - 0.04 x10(3)/[facility]ORY Specimen Anatomical Collection Method Collection Time Receive d Time (Source) Location / / Volume Laterality Blood specimen 03/01/2020 12:19 0 (specimen) PM EDT 12:28 PM EDT Resulting Agency Comment Spec In Lab Marcus [place]aca[place] DISPATCHER [employer] RENTAL HEMATOLOGY ORDERABLES Performing Organization Address City/[facility]/[place] [address] Hemogram (03/01/2020 12:19 PM EDT) athologist Signature WBC 6.2 4.0 - 9.5 [facility] x10(3)/[facility] LABORATORY RBC 4.76 4.58 - [facility] [place] 5.54 [facility] x10(6)/[facility] LABORATORY Hemoglobin 14.3 13.7 - [facility] 16.5 gm/dL [facility] Hematocrit 40.7 40.5 - [facility] 48.5 % [facility] MCV 85.5 82.9 - [facility] 93.1 [facility] LABORATORY MCH 30.0 27.5 - [facility] 32.1 pg [facility] MCHC 35.1 32.0 - [facility] 35.[facility] gm/dL [facility] Platelets 218 145 - 357 [facility] x10(3)/[facility] LABORATORY RDWSD 39.1 36.0 - [facility] 45.0 [facility] LABORATORY RDWCV 12.5 11.4 - [facility] [place] 13.8 % [facility] MPV 9.3 7.6 - 12.9 [facility] LABORATORY nRBC % Auto 0.0 % [facility] nRBC Abs Auto 0.000 0.000 - [facility] 0.000 [facility] x10(3)/[facility] LABORATORY Specimen Anatomical Collection Method Collection Time Receive d Time (Source) Location / / Volume Laterality Blood specimen 03/01/2020 12:19 0 (specimen) PM EDT 12:28 PM EDT Resulting Agency Comment Spec In Lab Marcus Shaikh APRN HEMATOLOGY ORDERABLES Performing Organization Address City/State/ZIP Code Phon e Number [address] Lipid Panel (Reflex Direct LDL) (03/01/2020 12:19 PM EDT) athologist Signature Chol, Total 146 mg/dL [facility] Comment: Lower Risk: <200 mg/dL Average Risk: 200-239 mg/dL Higher Risk: >tq=836 mg/dL Triglycerides 110 mg/dL [facility] Comment: Average Risk/Lower Risk: <150 mg/dL Borderline High Risk: 150-199 mg/dL High Risk: 200-499 mg/dL Very High Risk: >zi=140 mg/dL HDL 44 mg/dL [facility] Comment: Males: ?? Higher Risk: <40 mg/dL Females: ?? HIgher Risk: <50 mg/dL LDL Cholesterol 80 mg/dL [facility] Comment: Lowest Risk: <100 mg/dL Lower Risk: 100-129 mg/dL Borderline High Risk: 130-159 mg/dL High Risk: 160-189 mg/dL Very High Risk: >rh=953 mg/dL Chol/HDL Ratio 3.3 ratio [facility] Lipid Interpretation See Note [facility] Comment: Lipid management should be guided by a p atient? s ASCVD risk, goals and preferences. ACC/AHA Guidelines recommend high intens ity statin if clinical ASCVD or LDL greater than or equal to 190 mg/dL. http://[employer]/CXF-FJL-Gwsmvtlnl Adults aged 40-75 with LDL 70-189 mg/dL should have their 10 year ASCVD risk estimated with the ACC/AHA ASCVD risk es timator http://tools.acc.org/JSBOU-Hgip-Hhxjmawx r/ Statin should be discussed if risk great er than or equal to 7.5% in non-diabetics. With diabetes, moderate i ntensity statin is recommended if risk less than 7.5%, high intensity if risk g reater than or equal to 7.5%. Annual lipid monitoring on statins is no t necessary. Evaluate secondary causes of Triglycerid es greater than 500 mg/dL or LDL greater than 190 mg/dL: See table 6 of A CC/AHA Guideline. Lifestyle modification is a critical com ponent of ASCVD risk reduction. Specimen Anatomical Collection Method Collection Time Receive d Time (Source) Location / / Volume Laterality Blood specimen 03/01/2020 12:19 0 (specimen) PM EDT 12:28 PM EDT Resulting Agency Comment Spec In Lab Marcus Shaikh APRN CHEMISTRY ORDERABLES Performing Organization Address City/State/[place] [address] (ABNORMAL) Hemoglobin A1c (03/01/2020 12:19 PM EDT) Analysis Performed At Patho logist Time Signature Hemoglobin A1C 7.9 (H) 4.3 - 5.6 [facility] Comment: Reference Range: 4.3 - 5.6% 5.7 - 6.4% - Increased Risk of Developin g Diabetes Mellitus >= 6.5% - Consistent with diagnosis of D iabetes Mellitus In the absence of hyperglycemia (i.e. pl asma glucose > 200 mg/dL) or classic symptoms of hyperglycemia a repeat measu rement of HbA1c should be performed on a separate sample to confirm the diagnos is. Diagnosis and Classification of Diabetes Mellitus, Diabetes Care 2013; 36: Suppl. 1, X57-80 Est Avg Gluc 180 mg/dL [facility] Comment: eAG equivalents for HbA1c percentages: HbA1c(%) ?eAG(mg/dL) 6.0 ?126 6.5 ?140 7.0 ?154 7.5 ?169 8.0 ?183 8.5 ?197 9.0 ?212 9.5 ?226 10.0 ? 240 Limitations: The eAG calculation has not been validated on women, individuals below 18 years old and above 70 years old, and individuals with hemoglobinopathies. Additional resources are available on [facility] ADA website. Carl MATTHEWS, Bobby J, Vu R, et al. ??Tr anslating the A1C assay into estimated average glucose values. ??Diabetes Care 2008:31(8):6891-4314. Specimen Anatomical Collection Method Collection Time Receive d Time (Source) Location / / Volume Laterality Blood specimen 03/01/2020 12:19 0 (specimen) PM EDT 12:28 PM EDT Resulting Agency Comment Spec In Lab Marcus Shaikh APRN CHEMISTRY ORDERABLES Performing Organization Address [facility]/ZIP Code Phon e Number [address] APTT (03/01/2020 12:19 PM EDT) P athologist Signature PTT 33 25 - 37 sec [facility] Comment: The PTT is NOT appropriate for heparin m onitoring. Use the Anti-Xa level for heparin monitoring (HEP UFH) or LMWH mon itoring (HEP LMW). A PTT less than 37 seconds generally indicates adequate hem ostasis. Specimen Anatomical Collection Method Collection Time Receive d Time (Source) Location / / Volume Laterality Blood specimen 03/01/2020 12:19 0 (specimen) PM EDT 12:28 PM EDT Resulting Agency Comment Spec In Lab Marcus [facility] HEMATOLOGY ORDERABLES Performing Organization Address [facility] [place] [address] Prothrombin Time (03/01/2020 12:19 PM EDT) P athologist Signature PT 10.7 9.4 - 12.5 [facility] LABORATORY INR 0.9 [facility] Comment: An INR <2.0 indicates adequate procoagul ant activity for hemostasis in most patients without underlying bleeding dis orders, though the INR may not adequately reflect hemostatic capacity i n patients with liver disease and synthetic impairment. The recommended ta rget INR range for therapeutic anticoagulation is 2.0 ? 3.0 for most applications, though lower and higher ranges may be appropriate depending on c linical circumstances. Specimen Anatomical Collection Method Collection Time Receive d Time (Source) Location / / Volume Laterality Blood specimen 03/01/2020 12:19 0 (specimen) PM EDT 12:28 PM EDT Resulting Agency Comment Spec In Lab Marcus Shaikh DISPATCHER [employer]OM[employer] RENTAL HEMATOLOGY ORDERABLES Performing Organization Address City/State/[place] [address] (ABNORMAL) Basic Metabolic Panel (non-fasting) (03/01/2020 12:19 PM EDT) P athologist Signature Glucose Lvl 171 65 - 199 [facility] mg/dL [facility] Comment: Diabetes: >=200 mg/dL plus symp toms BUN 24 (H) 10 - 20 mg/dL [facility] Creatinine 1.17 0.80 - 1.50 mg/dL [facility] Sodium 135 135 - 145 mmol/L [facility] Potassium 5.5 (H) 3.5 - 5.0 mmol/L [facility] Comment: Please note: ??Patients with WBC >100,00 0 may have falsely elevated Potassium levels. ??For accurate Potassium quantif ication in these patients send serum separator tube (gold top) for subsequent determinations. ??Contact the Clinical Chemistry Laboratory if there are any qu estions. Chloride 101 98 - 107 mmol/L [facility] CO2 23 22 - 31 mmol/L [facility] Anion Gap 11 5 - 15 mmol/L [facility] Calcium 9.8 8.5 - 10.5 mg/dL [facility] Estimated GFR 74 >=60 mL/min/1.73 m?? [facility] Comment: The eGFR was calculated using the CKD-EP I equation. As with all creatinine based estimates of kidney function, eGFR values calculated with the CKD-EPI equation are not accurate in patients wi th acute kidney failure, extremes of body mass or the acutely ill. http://[employer]/DHMCnkf eGFR 86 >=60 mL/min/1.73 m?? [facility] Comment: The eGFR was calculated using the CKD-EP I equation. As with all creatinine based estimates of kidney function, eGFR values calculated with the CKD-EPI equation are not accurate in patients wi th acute kidney failure, extremes of body mass or the acutely ill. http://[employer]/DHMCnkf Specimen Anatomical Collection Method Collection Time Receive d Time (Source) Location / / Volume Laterality Blood specimen 03/01/2020 12:19 0 (specimen) PM EDT 12:28 PM EDT Resulting Agency Comment Spec In Lab Marcus Shaikh LEONARD CHEMISTRY ORDERABLES Performing Organization Address City/[facility]/ZIP Code Phon e Number [place] [phone] EKG 12 Lead (03/01/2020 11:47 AM EDT) [facility] gist Method Time Signature Ventricular rate 82 BPM MUSE SYSTEM Atrial Rate 82 BPM MUSE SYSTEM P-R Interval 168 ms MUSE SYSTEM QRS Duration 110 ms MUSE SYSTEM Q-T Interval 388 ms MUSE SYSTEM QTC Calculated 453 ms MUSE SYSTEM (Bezet) Calculated P [place] 14 degrees MUSE SYSTEM Calculated R [place] -11 degrees MUSE SYSTEM Calculated T [place] 43 degrees MUSE SYSTEM INTERPRETATION Normal sinus rhythm MUSE SYSTEM Incomplete right bundle branch block Normal sinus rhythm Borderline ECG No previous ECGs available Confirmed by MD Selin, Jj Betancourt ([id number]) on 03/01/2020 3:45:47 PM Specimen Anatomical Collection Method Collection Time Receive d Time (Source) Location / / Volume Laterality 03/01/2020 11:47 03/01/2020 3:45 AM EDT PM EDT Marcus Shaikh APRN ECG ORDERABLES Performing Organization Address City/[facility]/ZIP Code Phon e Number MUSE SYSTEM documented in this encounter Visit Diagnoses Diagnosis 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 Pain in toe of left foot Pain in limb Type 2 diabetes mellitus with other spec ified complication, without long-term current use of insulin PAD (peripheral artery disease) Peripheral vascular disease, unspecified Ischemia of foot Unspecified circulatory system disorder documented in this encounter Administered Medications Inactive Administered Medications - up to 3 most recent administrations Medication Order MAR Action Action Date Dose Rate Site acetaminophen (Tylenol) tablet Given 03/01/2020 3:49 PM EDT 1,00 0 mg 1,000 mg 1,000 mg, Oral, ONCE, 1 dose, On 03/01/20 at 1524, Maximum dose of acetaminophen is 4000 mg from all sources in 24 hours., STAT aspirin chewable tablet 243 mg Given 03/01/2020 12:37 PM EDT 243 mg 243 mg, Oral, ONCE, 1 dose, On 03/01/20 at 1221, STAT iohexoL (OMNIPAQUE) 350 mg/mL solution 0-200 Given 11/2019 2:33 PM EDT 150 mLs mL 0-200 mL, Intravenous, ONCE PRN, 1 dose, Starting on 03/01/20 at 1433, Until 03/01/20 at 1433, Per Protocol, Warning Vesicant/Irritant Medication , Radiology Contrast, Routine sodium chloride 0.9% 1,000 mL IV bolus New Bag 03/01/2020 1:30 PM EDT 2000 mL/hr at 2,000 mL/hr, Intravenous, ONCE, 1 dose, On 03/01/20 at 1330 documented in this encounter Active and Recently Administered Medications Times are shown in EDT. Scheduled Medication Order 02/28/2020 02/29/2020 03/01/2020 acetaminophen (Tylenol) tablet 1,000 mg (COMPLETED) 1549 (Given - Provider: Brisa Fong RN) 1,000 mg, Oral, ONCE, 1 dose, 03/01/20 at 1524, Maximum dose of acetaminophen is 4000 mg from all sources in 24 hours., STAT aspirin chewable tablet 243 mg (COMPLETED) 1237 (Given - Provider: Brisa Fong RN) 243 mg, Oral, ONCE, 1 dose, 03/01/20 at 1221, STAT sodium chloride 0.9% 1,000 mL IV bolus (COMPLETED) 1330 (New Bag - Provider: Brisa Fong RN)1400 (Stopped - Provider: Brisa Fong RN) at 2,000 mL/hr, Intravenous, ONCE, 1 dose, 03/01/20 at 1330 PRN Medication Order 02/28/2020 02/29/2020 03/01/2020 iohexoL (OMNIPAQUE) 350 mg/mL solution 0-200 mL (COMPLETED) 1433 (Given - Provider: Citlalli Collado) 0-200 mL, Intravenous, ONCE PRN, 1 dose, Starting 03/01/20 at 1433, Until 03/01/20 at 1433, Per Protocol, Warning Vesicant/Irritant Medication , Radiology Contrast, Routine documented in this encounter Care Teams Siphoner Relationship Specialty Start Date End Date Alisia Cuellar MD PCP - General 05/03/13 03/04/[address] [place] [address] documented as of this encounter
--- OUTSIDE RECORDS SUMMARY | 2022-04-30 02:09 | XMS_ITS | Encounter Summary ---
:1975 Author Organization [facility] [place] [address] Care Team Providers Name Role Phone Ilsa Smith MD Primary Care Provider Encounter Details Date Type Department Care Team Description 09/25/2020 Telephone [place] [facility] [place] [phone] Social History Tobacco Use Types Packs/Day Years Used Date Never Smoker 0 0 Smokeless Tobacco: Never Used Alcohol Use Standard Drinks/Week Comments Yes 14 (1 standard drink = 0.6 oz pure alcoh ol) Sex Assigned at Date Recorded Not on file documented as of this encounter Miscellaneous Notes Telephone Encounter - Thania Nath - 09/25/2020 10:22 AM EST Recall: [place] CHRISTIANA - PVD -6 MO FU 09/25/2020 tried calling x1, no vm set up, sending letter MK documented in this encounter Plan of Treatment Not on filedocumented as of this encounter Visit Diagnoses Not on filedocumented in this encounter Care Teams Sound Assistant Relationship Specialty Start Date End Date Ilsa Smith MD PCP - General Family Medicine 03/05/[address] [place] [address] documented as of this encounter
--- OUTSIDE RECORDS SUMMARY | 2022-04-30 02:09 | XMS_ITS | Encounter Summary ---
:1975 Author Organization [facility] [place] [address] Care Team Providers Name Role Phone Ilsa Smith MD Primary Care Provider Reason for Referral Consultation (Routine) - Patient Refused - Seen Elsewhere Sooner Specialty Diagnoses / Procedures Referred By Contact Refer red To Contact Dermatology Diagnoses Dermatitis, contact Jada Guerra MD [facility] 4m [facility] [place] [place] [address] [place] [address] Referral ID Status Reason Start Expiration Visits Visits Date Date Requested Authorized [id number] Patient Consult, 04/19/2012 10/16/2012 1 1 Refused - Test & Seen Treat Elsewhere Sooner Reason for Visit Reason Comments Allergic Reaction Encounter Details Date Type Department Care Team Description 04/19/2012 Office Visit Allergy at [facility] Jada Guerra, Dermatitis (Primary Dx); [facility] Dermatitis, [place] [phone] ALLERGY AND [phone] IMMUNOLOGY [place], [place] [address] Social History Tobacco Use Types Packs/Day Years Used Date Never Smoker Sex Assigned at Date Recorded Not on file documented as of this encounter Last Filed Vital Signs Vital Sign Reading Time Taken Comments Blood Pressure 148/93 04/19/2012 9:59 AM EDT Pulse 81 04/19/2012 9:59 AM EDT Temperature - - Respiratory Rate - - Oxygen Saturation - - Inhaled Oxygen Concentration - - Weight 83.9 kg (185 lb) 04/19/2012 9:59 AM EDT Height 177.8 cm (5' 10) 04/19/2012 9:59 AM EDT Body Mass Index 26.54 04/19/2012 9:59 AM EDT documented in this encounter Patient Instructions Patient InstructionsHiJada marin MD - 04/19/2012 10:43 AM EDT derm referral documented in this encounter Progress Notes Jada Guerra MD - 04/19/2012 1:22 PM EDT Subjective: Patient ID: Sameer Krishnan is a 36 y.o. male. seen at the request of Dr Smith for evaluation of possible latex allergy. Notes from her office and also [facility] ER notes from a visit in February were reviewed by me. HPI Sameer reports that he had developed a blistering rash at the site where a bandaid ( he is not sure if it was non latex) was placed in February. He was told to apply cortisone cream to the rash. The rash became worse with more blistering, redness, and swelling, therefore he placed an jael bandage and gauze on the area. The skin under the gauze was normal but under the jael bandage , the rash became even more severe. He went to the ER and was given prednisone and Keflex to take which were beneficial. He is unsure of the components of the jael bandage,but does not think it contained latex. PH: testicular cancer, rhabdomyosarcoma,,GERD,psoriasis Meds: none Allergies Allergen Reactions ??? Pcn (Penicillins) CIS - Hives FH:non contributory for this visit SH: non smoker Review of Systems Constitutional: Positive for fatigue. HENT: Negative Eyes: Positive for itching. Respiratory: Negative. Cardiovascular: Negative. Gastrointestinal: Heartburn Genitourinary: Negative. Musculoskeletal: Negative. Skin: psoriasis contact dermatitis -see HPI Neurological: Positive for headaches. Hematological: Negative. Psychiatric/Behavioral: Positive for sleep disturbance. Objective: Physical Exam Constitutional: No distress. Eyes: Conjunctivae are normal. Right eye exhibits no discharge. Left eye exhibits no discharge. Neck: Neck supple. Musculoskeletal: He exhibits no edema. Neurological: He is alert. Skin: erythematous area on left lower leg no active rash noted Psychiatric: He has a normal mood and affect. skin testing with latex was done-this was negative, as was saline control with 0 mm wheal and 0 mm flare histamine was positive with 7 mm wheal and 11 mm flare Assessment and Plan: This patient recently had a severe dermatitis,contact vs. irritant, on his leg following placement of a bandaid and ,subsequently an jael bandage, for which he took prednisone and Keflex . He is not sure whether the bandaid contained latex, but does not think the jael bandage did, although he does not know the specific components. His latex skin testing today was negative , and I ordered latex RAST as confirmatory testing. As I told him, patch testing could be helpful in identifying contactants to which he may be sensitive. I placed a referral to Dermatology for this. Thank you for this referral. documented in this encounter Plan of Treatment Scheduled Referrals Name Type Priority Associated Order Schedule Diagnoses REFERRAL TO Outpatient Referral Routine Dermatitis, contact O rdered: DERMATOLOGY 04/19/2012 documented as of this encounter Procedures Procedure Name Priority Date/Time Associated Diagnosis Comme nts LATEX IGE Routine 04/19/2012 11:25 AM Dermatitis, contact R esults for this EDT procedure are i n the results section . documented in this encounter Results Latex IgE (04/19/2012 11:25 AM EDT) P athologist Signature Latex IgE <0.35 kU/L [facility] Comment: Class 0 (Negative <0.35) Test Performed by: [address] [address] Relay Assembler: Al juarez III, M.D. Specimen Anatomical Collection Method Collection Time Receive d Time (Source) Location / / Volume Laterality Blood specimen 04/19/2012 11:25 2 (specimen) AM EDT 12:05 PM EDT Resulting Agency Comment Spec In Lab Jada Guerra MD IMMUNOLOGY ORDERABLES Performing Organization Address City/State/[place] [address] [facility] documented in this encounter Visit Diagnoses Diagnosis Dermatitis - Primary Contact dermatitis and other eczema, due to unspecified cause Dermatitis, contact Contact dermatitis and other eczema, due to unspecified cause documented in this encounter Care Teams Osteopathic Medicine Teacher Relationship Specialty Start Date End Date Ilsa Smith MD PCP - General 03/31/12 05/02/[address] [place] [address] documented as of this encounter
--- OUTSIDE RECORDS SUMMARY | 2022-04-30 02:09 | XMS_ITS | Encounter Summary ---
:1975 Author Organization [facility] [place] [address] Care Team Providers Name Role Phone Alisia Cuellar MD Primary Care Provider Encounter Details Date Type Department Care Team Description 02/28/2020 Telephone Vascular Surgery at [facility] [place] [place] [address] Social History Tobacco Use Types Packs/Day Years Used Date Never Smoker Sex Assigned at Date Recorded Not on file documented as of this encounter Miscellaneous Notes Telephone Encounter - Tika Gonzales - 02/28/2020 9:05 AM EDT LMM to have patient call to confirm appointment made for 03-14-20 w/ Dr. Almaraz. Appointment letter sent documented in this encounter Plan of Treatment Not on filedocumented as of this encounter Visit Diagnoses Not on filedocumented in this encounter Care Teams Oilseed Meat Presser Relationship Specialty Start Date End Date Alisia Cuellar MD PCP - General 05/03/13 03/04/[address] [place] [address] documented as of this encounter
--- OUTSIDE RECORDS SUMMARY | 2022-04-30 02:09 | XMS_ITS | Encounter Summary ---
:1975 Author Organization [facility] [place] [address] Care Team Providers Name Role Phone Ilsa Smith MD Primary Care Provider Encounter Details Date Type Department Care Team Description 03/05/2020 Office Visit Vascular Surgery at Ree Moreland MD Critical lower limb ischemia; [facility] Pre-op testing [facility] [address] VASCULAR SURGERY [place] [phone] Social History Tobacco Use Types Packs/Day Years Used Date Never Smoker 0 0 Smokeless Tobacco: Never Used Alcohol Use Standard Drinks/Week Comments Yes 14 (1 standard drink = 0.6 oz pure alcoh ol) Sex Assigned at Date Recorded Not on file documented as of this encounter Last Filed Vital Signs Vital Sign Reading Time Taken Comments Blood Pressure 163/84 03/05/2020 11:22 AM EDT Pulse 82 03/05/2020 11:21 AM EDT Temperature - - Respiratory Rate - - Oxygen Saturation - - Inhaled Oxygen Concentration - - Weight 89.4 kg (197 lb) 03/05/2020 11:21 AM EDT Height 177.8 cm (5' 10) 03/05/2020 11:21 AM EDT Body Mass Index 28.27 03/05/2020 11:21 AM EDT documented in this encounter Progress Notes Byron Moreland MD - 03/05/2020 11:00 AM EDT Images from the original note were not included. Vascular Surgery Clinic Visit March 05, 2020 CC: Patient is a 44 y.o. male who is referred to our clinic for evaluation of left blue toes. HPI: 44yo diabetic male with left blue toes. History of L D1 blue toe in August which resolved. Over the last 3-4 weeks, D1 and D4 blue toes with pain that limited his ambulation. ROS is negative for history of CAD, KS, CP, or SOB. No history suggestive of stroke, TIA, or amaurosis fugax. Has DM, on oral hypoglycemics. Has never smoked. 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 No scleral icterus, neck supple. RRR, CTA B, Abd soft/NT/ND. Well-healed abdominal midline incision and left groin incision. Palpable femoral pulse on the right, none on the left. Left blue toes, worst involving the 1st toe. Neuro non-focal Labs: [employer] Specialist (03/01/20): 1.17 Lipids (03/01/20): TC 146, HDL 44, LDL 80 HbA1C (03/01/20): 7.9 Imaging studies: I have personally reviewed the following imaging studies. [facility] (03/05/20): 1.26/0.83 CTA with BLE runoff (03/01/20): L COAT TAILOR focal severe stenosis A/P: 44yo diabetic male with left blue toes in setting of severe L COAT TAILOR stenosis. Will plan for L femoral endarterectomy, tentatively scheduled for 03/14/20. -con't asa, plavix, and statin -L femoral endarterectomy, tentatively scheduled for 03/14/20 Byron Moreland MD documented in this encounter Plan of Treatment Not on filedocumented as of this encounter Results XR Chest One View (03/05/2020 1:04 PM EDT) Anatomical Region Laterality Modality Chest N/A Digital Radiography Specimen (Source) Anatomical Location Collection Method / Collectio n Time Received Time / Laterality Volume Impressions 03/05/2020 2:52 PM EDT No acute cardiopulmonary process. I have personally reviewed the image(s) and the resident's interpretation and agree with the findings, Ashley Lujan at 03/05/2020 2:52 PM Thank you for letting us participate in the care of this patient. For questions regarding this report, please contact e number below. ? Narrative 03/05/2020 2:52 PM EDT EXAMINATION: XR CHEST ONE VIEW CLINICAL HISTORY: pre-op TECHNIQUE: 2 view of the chest COMPARISON: None FINDINGS: The lungs are clear. The cardiac mediast inal silhouette and faye and pulmonary vasculature are within normal limits. No pneumothorax. No pleural effusion. Procedure Note Ashley Cortes MD - 2019 EXAMINATION: XR CHEST ONE VIEW CLINICAL HISTORY: pre-op TECHNIQUE: 2 view of the chest COMPARISON: None FINDINGS: The lungs are clear. The cardiac mediast inal silhouette and faye and pulmonary vasculature are within normal limits. No pneumothorax. No pleural effusion. IMPRESSION No acute cardiopulmonary process. I have personally reviewed the image(s) and the resident's interpretation and agree with the findings, Ashley Lujan at 03/05/2020 2:52 PM Thank you for letting us participate in the care of this patient. For questions regarding this report, please contact e number below. Byron Moreland MD IMG DX ORDERABLES (ABNORMAL) Urinalysis without microscopic (03/05/2020 1:00 PM EDT) [facility] Method Time Signature Glucose UA >=1000 Negative [facility] (Critical) mg/dL [facility] Comment: Urinalysis result NOT critical without a combination of Glucose greater than or equal to 500 mg/dL AND Ketones greate r than or equal to 80 mg/dL Protein UA Negative Negative mg/dL [facility] Bilirubin UA Negative Negative mg/dL [facility] Comment: Clinical correlation required for positi ve Urine Bilirubin results as false positive may occur with some drugs and d rug related products. If a false positive is suspected a serum total bili toure should be considered if clinically indicated. Urobilinogen UA Normal Normal mg/dL [facility] pH UA 5.5 5.0 - 8.0 [facility] Blood UA Negative Negative mg/dL [facility] Ketones UA Negative Negative mg/dL [facility] Nitrite UA Negative Negative [facility] Leukocytes UA Negative Negative [facility] Appearance UA Clear Clear [facility] Spec Cornell UA 1.019 1.006 - 1.030 [facility] Color UA Yellow Yellow [facility] Specimen Anatomical Collection Method Collection Time Receive d Time (Source) Location / / Volume Laterality Urine specimen 03/05/2020 1:00 PM 020 1:08 (specimen) EDT PM EDT Resulting Agency Comment Spec In Lab Byron Moreland MD URINE ORDERABLES Performing Organization Address City/State/[place] [address] documented in this encounter Visit Diagnoses Diagnosis Critical lower limb ischemia Unspecified circulatory system disorder Pre-op testing Preoperative examination, unspecified Critical lower limb ischemia Unspecified circulatory system disorder Pre-op testing Preoperative examination, unspecified documented in this encounter Care Teams Precision Jig Grinder Relationship Specialty Start Date End Date Ilsa Smith MD PCP - General Family Medicine 03/05/[address] [place] [address] documented as of this encounter
--- OUTSIDE RECORDS SUMMARY | 2022-04-30 02:09 | XMS_ITS | Encounter Summary ---
:1975 Author Organization [facility] [address] Care Team Providers Name Role Phone Ilsa Smith MD Primary Care Provider Reason for Visit Auth/Cert Specialty Diagnoses / Procedures Referred By Contact Refer red To Contact Diagnoses Left leg CLI Procedures PRO THROMBOENDARTECTMY FEMORAL COMMON @ENDARTERECTOMY, COMMON FEMORAL W OR W/O PATCH GRAFT (WRVU 15.31) Referral ID Status Reason Start Date Expiration Date Visits Requ ested Visits Authorized [id number] 1 1 Encounter Details Date Type Department Care Team Description 03/14/2020 - Hospital Encounter [address] [place] Tenisha Linder, Rob to e syndrome 03/16/2020 Pradeep Garcia MD [facility] ONE [facility] [place] [phone] Social History Tobacco Use Types Packs/Day Years Used Date Never Smoker 0 0 Smokeless Tobacco: Never Used Alcohol Use Standard Drinks/Week Comments Yes 14 (1 standard drink = 0.6 oz pure alcoh ol) Sex Assigned at Date Recorded Not on file documented as of this encounter Last Filed Vital Signs Vital Sign Reading Time Taken Comments Blood Pressure 163/83 03/16/2020 12:08 PM EDT Pulse 80 03/15/2020 4:13 PM EDT Temperature 36.6 ??C (97.9 ??F) 03/16/2020 12:08 PM EDT Respiratory Rate 18 03/16/2020 12:08 PM EDT Oxygen Saturation 95% 03/16/2020 12:08 PM EDT Inhaled Oxygen Concentration - - Weight 87.9 kg (193 lb 12.6 oz) 03/16/2020 3:00 AM EDT Height 177.8 cm (5' 10) 03/14/2020 7:20 AM EDT Body Mass Index 27.81 03/14/2020 7:20 AM EDT documented in this encounter Discharge Summaries Radha Escalante MD - 03/16/2020 10:02 AM EDT Inpatient - Discharge Summary Patient Name: Killian Krishnan Patient Age: 44 y.o. Birthdate: 1975 Admit date: 03/14/2020 Discharge date and time: 03/16/2020 Attending Physician: Tenisha Moreland MD Discharging Provider: Radha Escalante MD Discharging Service: Vascular Surgery Operations/Major Procedures: 03/14: Left common femoral endarterectomy Active Hospital Problems: Active Hospital Problems Diagnosis ??? Blue toe syndrome of left lower extremity Resolved Hospital Problems No resolved problems to display. Active Non Hospital Problems: Active Non-Hospital Problems Diagnosis ??? Psoriasis ??? Dermatitis, contact History of Presentation: Killian Krishnan is a 44 y.o. male with history of HTN, HLD, DM, testicular cancer and rhabdomyosarcoma s/p resection, chemo, and XRT (1994) who presented to ED 03/01/2020 with L blue toes. Initially occurred in Aug 2019 in D1 which resolved. Recurred ~4 weeks ago in D1 and D4. Pain has limited ability to ambulate. Overall this has improved significantly over the last week. Hospital Course: The patient was admitted after the procedure listed above. On POD1, the patient had one episode of orthostasis the first time he sat up, which resolved. Following that episode, the patient was able to ambulate out of bed without problem, and he worked with physical therapy who deemed him appropriate to return home. His hospital course was otherwise uneventful. His dressing was removed on postoperative day 2, and the wound appeared clean and intact. At time of discharge, the patient was ambulating atbaseline, tolerating a regular diet, and his pain was controlled. His Louise catheter was removed on POD1, and he voided without problem after removal. Day of Discharge Exam: General:??NAD, resting comfortably HEENT:??PERRL, anicteric sclerae CVS:??Regular rate, no murmurs rubs or gallops Pulm:??Clear bilaterally Abd:??soft, non tender, non distended Ext:?RLE: No edema. Skin warm and pink. No tissue loss. Brisk capillary refill. Palpable DP/PT LLE: No edema. Skin warm and pink. No tissue loss. Brisk capillary refill. Palpable DP/PT. Groin incision appears clean with minimal serosanguinous drainage, closed with sutures and radha Neuro: Grossly nonfocal, moving all extremities. ?? Important Studies and Lab Data: Labs: Recent Labs 03/16/20 0404 WBC 9.2 HGB 11.5* HCT 34.0* PLATELET 223 Lab Results Component Value Date INR 0.9 03/01/2020 Recent Labs 03/16/20 0404 NA 137 K 3.8 CL 103 CO2 24 BUN 15 CREATININE 1.05 Pending Studies and Lab Data: None Discharge Condition: Stable Discharge to: Home Future Appointments and Orders Future Orders Complete By Expires CHRISTIANA, legs, multiple levels [VAS8 Custom] 03/31/2020 09/16/2020 Process Instructions: There is no in-house vascular entry level lab technician available on weeknights (5pm-8am), weekends, or holidays. IF THIS IS A REQUEST FOR AN EMERGENT STUDY DURING THOSE HOURS, please have the senior provider responsible for the patient page the Vascular Surgery Fellow/Senior Resident front office supervisor to discuss options. Scheduling Instructions: Questions: Indication for study/signs & symptoms: s/p L TRAVERSE ROD ASSEMBLER endarterectomy Question to be answered: Arterial patency Pref[place] [facility] Anticoagulation & Antiplatelet: Anticoagulation: None indicated Antiplatelet: Agent: ASA Indication: Arterial disease Intended Duration: alf For questions regarding these medications, please contact: Vascular Surgery Discharge Medications: Your Medications New Medications Dose Details acetaminophen 500 mg Tab Commonly known as: Tylenol Take 2 tablets by mouth every 6 hours. 1,000 mg Quantity: 30 tablet Refills: 1 oxyCODONE 5 mg Tab Commonly known as: Roxicodone Take 1 tablet by mouth every 4 hours as needed for Pain (moderate pain (4-6)). 5 mg Quantity: 5 tablet Refills: 0 Continued medications with new dosing Dose Details atorvastatin 40 mg Tab Commonly known as: Lipitor Take 2 tablets by mouth every evening. What changed: how much to take 80 mg Quantity: 30 tablet Refills: 0 Continued medications, unchanged Dose Details aspirin EC 81 mg Tbec Take 81 mg by mouth daily. 81 mg Refills: 0 lisinopriL 20 mg Tab Commonly known as: Prinivil;Zestril Take 20 mg by mouth daily. 20 mg Refills: 0 metFORMIN 1,000 mg Tab Commonly known as: GLUCOPHAGE Take 500 mg by mouth 2 times daily (with meals). 500 mg Refills: 0 STOPPED Medications clopidogreL 75 mg Tab Commonly known as: Plavix oxyCODONE-acetaminophen 5-325 mg Tab Commonly known as: Percocet Updated Allergies/ADRs: Allergies Allergen Reactions ??? Bandage [Adhesive Bandage] Rash ??? Shellfish Derived Severe N/V ??? Pcn [Penicillins] CIS - Hives Instructions Given to Patient at Discharge: Patient Instructions Patient Instructions You were admitted after having an operation on the artery in your left leg to clean it out. All of this went very well. Dr. Moreland will want you to be seen in approximately three weeks with ABIs and to remove your radha and sutures. All of this will be ordered and sent to you in the mail. If for some reason you don't receive this within a week or so please call our office as your followup is very important. Call your doctor if: Any fever, any drainage, redness or separation of your incision, increased painor change in temperature of your leg or around your incision Activity level: Up as tolerated but watch for swelling of your leg. Manage this with leg elevation, toes higher than your nose and also can use acewrapping from your foot to below knee, tape in place, rewrap as necessary. Diet: Resume your previous regular diet. Prescription pain medications can cause severe constipation. Take over the counter stool softeners and laxatives (senna, colace, mirilax, etc.) as needed to ensure one bowel movement per day. Driving: No driving while taking prescription pain medications. Shower/Bath: You may take a shower. Re-dress your incisions afterward as needed to keep them clean and dry. Do not soak or submerge your incision until cleared to do so at a follow up appointment. Wound Care: Re-dress with dry gauze as needed to keep the area clean and dry. You will be sent home with betadine swabs, please apply this to the wound daily. You can discontinue the medication Plavix which you had previously been taking. For any problems or questions please call [phone] JOSE Clay, powder hand Nurse Clinician For issues on weeknights after 5pm and weekends please call [phone] and ask for the Vascular Fellow front office supervisor. documented in this encounter Discharge Instructions Patient InstructionsRadha Escalante MD - 03/16/2020 9:55 AM EDT Patient Instructions You were admitted after having an operation on the artery in your left leg to clean it out. All of this went very well. Dr. Moreland will want you to be seen in approximately three weeks with ABIs and to remove your radha and sutures. All of this will be ordered and sent to you in the mail. If for some reason you don't receive this within a week or so please call our office as your followup is very important. Call your doctor if: Any fever, any drainage, redness or separation of your incision, increased painor change in temperature of your leg or around your incision Activity level: Up as tolerated but watch for swelling of your leg. Manage this with leg elevation, toes higher than your nose and also can use acewrapping from your foot to below knee, tape in place, rewrap as necessary. Diet: Resume your previous regular diet. Prescription pain medications can cause severe constipation. Take over the counter stool softeners and laxatives (senna, colace, mirilax, etc.) as needed to ensure one bowel movement per day. Driving: No driving while taking prescription pain medications. Shower/Bath: You may take a shower. Re-dress your incisions afterward as needed to keep them clean and dry. Do not soak or submerge your incision until cleared to do so at a follow up appointment. Wound Care: Re-dress with dry gauze as needed to keep the area clean and dry. You will be sent home with betadine swabs, please apply this to the wound daily. You can discontinue the medication Plavix which you had previously been taking. For any problems or questions please call [phone] JOSE Clay, powder hand Nurse Clinician For issues on weeknights after 5pm and weekends please call [phone] and ask for the Vascular Fellow front office supervisor. documented in this encounter Medications at Time of Discharge Medication Sig Dispensed Refills Start Date End Date acetaminophen (Tylenol) Take 2 tablets by 30 tablet 1 03/16 500 mg Tablet mouth every 6 hours. lisinopriL Take 20 mg by mouth 0 01/09/2020 (Prinivil;Zestril) 20 mg daily. Tablet metFORMIN (GLUCOPHAGE) Take 500 mg by 0 0 1,000 mg Tablet mouth 2 times daily (with meals). aspirin EC 81 mg Tablet, Take 81 mg by mouth 0 Delayed Release (E.C.) daily. atorvastatin (Lipitor) 80 Take 1 tablet by 90 tablet 1 02/2712/04/2020 mg Tablet mouth every evening. atorvastatin (Lipitor) 40 Take 2 tablets by 30 tablet 0 03/26/2020 mg Tablet mouth every evening. documented as of this encounter Progress Notes Ghulam Reis RN - 03/16/2020 2:12 PM EDT Killian had a good morning. VS stable. Lungs CTAB bilaterally, O2 sats WDL on RA. He tolerated a carb-controlled diet without nausea. His pain was well controlled with scheduled Tylenol and 5mg Oxycodonex 1. He was A&O x 4, good strengths. Palpable pulses throughout. Bowel sounds hypoactive but he was passing flatus and voiding in the urinal. L groin incision CDI, well approximate, with radha open to air. He worked with PT and was able to do stairs without any problem. He was medically cleared for discharge. His arrived to transport him home. IVs removed, pressure bandages applied. AVS printed and reviewed with patient and . Patient left unit via WC. Radha Escalante MD - 03/15/2020 11:58 AM EDT Vascular Surgery Progress Note Killian Krishnan is a 44 y.o. male with history of HTN, HLD, DM, testicular cancer and rhabdomyosarcoma s/p resection, chemo, and XRT (1994) who presented to ED 03/01/2020 with L blue toes. Initially occurred in Aug 2019 in D1 which resolved. Recurred ~4 weeks ago in D1 and D4. Pain has limited ability to ambulate. Overall this has improved significantly over the last week. ?? Patient denies recent changes to his health. Denies recent CP, SOB, JIMENEZ, PND, orthopnea. Patient is maintained on daily ASA, plavix, statin. Active Hospital Problems Diagnosis ??? Blue toe syndrome of left lower extremity Resolved Hospital Problems No resolved problems to display. Active Non-Hospital Problems Diagnosis ??? Psoriasis ??? Dermatitis, contact Scheduled Medications: ??? lisinopriL 20 mg Oral Daily ??? aspirin EC 81 mg Oral Daily ??? atorvastatin 40 mg Oral QPM ??? sodium chloride 0.9 % (flush) 5 mL Intravenous BID ? ? insulin lispro 1-5 Units Subcutaneous 4 Times Daily AC & HS ??? heparin (Porcine) 5,000 Units Subcutaneous Q8H [facility] ??? senna-docusate 2 tablet Oral BID ??? acetaminophen 1,000 mg Oral Q6H [facility] Operations This Hospitalization: 03/14/20: Left iliofemoral endarterectomy and patch angioplasty Subjective: Pain moderately well controlled, denies nausea, vomiting, chest pain or shortness of breath. Louise remains in place, patient on bedrest overnight. Objective: Temp: [36.1 ??C (97 ??F)-37 ??C (98.6 ??F)] Heart Rate: [64-85] Resp: [8-20] BP: (106-153)/(61-80) SpO2: [95 %-100 %] Heart Rate from SpO2: [58 bpm-84 bpm] BMI: Weight: (pt on bedrest, bed not zeroed out. will report to day shift ) (03/15/20 0603) BMI (Calculated): 27.53 BMI Classification: Over Weight Intake/Output Summary (Last 24 hours) at 03/15/2020 1159 Last data filed at 03/15/2020 1100 Gross per 24 hour Intake 4138 ml Output 3030 ml Net 1108 ml PHYSICAL EXAM: General: NAD, resting comfortably HEENT: PERRL, anicteric sclerae CVS: Regular rate, no murmurs rubs or gallops Pulm: Clear bilaterally Abd: soft, non tender, non distended Ext: RLE: No edema. Skin warm and pink. No tissue loss. Brisk capillary refill. Palpable DP/PT LLE: No edema. Skin warm and pink. No tissue loss. Brisk capillary refill. Palpable DP/PT. Groin incision with OR dressing left in place, appears clean with minimal serosanguinous drainage Neuro: Grossly nonfocal, moving all extremities. Labs: Recent Labs 03/15/20 0411 WBC 9.6* HGB 12.2* HCT 34.7* PLATELET 219 Recent Labs 03/15/20 0411 NA 135 K 4.1 CL 100 CO2 26 BUN 15 CREATININE 0.89 CALCIUM 8.8 New Studies: Assessment & Plan: Killian Krishnan is a 44 y.o. male 1 Day Post-Op from a left iliofemoral endarterectomy with patch angioplasty, recovering well. The patient's pain has been well controlled. He has palpable pedal pulses on the left. - Remove louise today - Activity as tolerated, PT/OT - Resume all home medications Anticoagulation: Antiplatelet: ASA, mcfp Radha Escalante MD 03/15/2020 Pager: [phone] Aakash White MD - 03/14/2020 10:00 PM EDT Surgery Post Op Check Killian Krishnan is a 44 y.o. male status post Left iliofemoral endarterectomy and patch angioplasty S: No nausea/vomiting, chest pain, SOB, pain well controlled, offers no complaints O: Temp: [36.6 ??C (97.9 ??F)] Heart Rate: -- Resp: [16-17] BP: (130-147)/(73-76) SpO2: [96 %-97 %] Heart Rate from SpO2: [71 bpm-74 bpm] I/O last 3 completed shifts: In: 1800 [P.O.:200; I.V.:1600] Out: 970 [Urine:770; Blood:200] I/O this shift: In: - Out: 770 [Urine:770] Physical Exam General: NAD, resting comfortably HEENT: PERRL, anicteric sclerae CVS: Regular rate, no murmurs rubs or gallops Pulm: Clear bilaterally Abd: soft, non tender, non distended Left groin soft, no hematoma, dressing c/d/i. Ext: RLE: No edema. Skin warm and pink. No telangiectasias or varicosities. No tissue loss. Brisk capillary refill LLE: No edema. Skin warm and pink. No telangictasias or varicosities. No tissue loss. Brisk capillary refill Neuro: CN 2-12 grossly intact, nonfocal, moving all extremities. Sensation intact in extremities bilaterally symmetric. Motor function intact in extremities, bilaterally symmetric. Vascular Exam: R L Femoral 2/2 2/2 DP 2/2 2/2 PT 2/2 2/2 AP Killian Krishnan is a 44 y.o. male status post Left iliofemoral endarterectomy and patch angioplasty currently in stable condition and recovering well Aakash White MD PGY-1 - pain well controlled - hemodynamically stable - UOP adequate Janay Rodriguez RN - 03/14/2020 7:29 PM EDT Pt arrived in stable condition PACU. Masimo monitor attached to pt. Incision with scant serosanguinous drainage. Louise catheter patent. Meds administered. Bedrest overnight. WCM Macy Rodriguez RN - 03/14/2020 3:30 PM EDT 1240 Pt to PACU. A-line zeroed and flushed. VSS. SBP to be kept under 160. Wakes easily. Oriented. Left groin site wnl. Palpable pulses to left foot. 1400 Left groin dsg with small amt of drainage to two spots. Area marked. Groin soft and without hematoma. 1510 A-line removed without complication. Pt talking to on phone. Tolerating po and reporting minimal pain to left groin. VSS documented in this encounter H&P Notes Tae Tyson MD - 03/14/2020 7:58 AM EDT Vascular Surgery History and Physical HPI: Killian Krishnan is a 44 y.o. male with history of HTN, HLD, DM, testicular cancer and rhabdomyosarcoma s/p resection, chemo, and XRT (1994) who presented to ED 03/01/2020 with L blue toes. Initially occurred in Aug 2019 in D1 which resolved. Recurred ~4 weeks ago in D1 and D4. Pain has limited ability to ambulate. Overall this has improved significantly over the last week. Patient denies recent changes to his health. Denies recent CP, SOB, JIMENEZ, PND, orthopnea. Patient is maintained on daily ASA, plavix, statin. Review of Systems: A full review encompassing at least 10 organ systems including general, neuro, pulm, cardiac, GI, , MSK, Endo, and psych was negative other than that listed in the HPI. Past Medical History: Past Medical History: Diagnosis Date ??? 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 Diabetes type 2 ??? High blood pressure on medication ??? Status post chemotherapy 25 years ago ??? Status post radiation therapy ??? Transfusion history around 25 years ago, with cancer treatment Past Surgical History: No past surgical history on file. Functional Status/Social Hx: No tobacco Family Hx: Negative for Thrombosis, Bleeding Disorders Medications: No current facility-administered medications on file prior to encounter. Current Outpatient Medications on File Prior to Encounter Medication Sig Dispense Refill ??? lisinopriL (Prinivil;Zestril) 20 mg Tablet Take 20 mg by mouth daily. ??? metFORMIN (GLUCOPHAGE) 1,000 mg Tablet Take 500 mg by mouth 2 times daily (with meals). ??? aspirin EC 81 mg Tablet, Delayed Release (E.C.) Take 81 mg by mouth daily. ??? clopidogreL (Plavix) 75 mg Tablet Take 1 tablet by mouth daily. 30 tablet 0 ??? atorvastatin (Lipitor) 40 mg Tablet Take 1 tablet by mouth every evening. 30 tablet 0 Allergies: Bandage [adhesive bandage]; Shellfish derived; and Pcn [penicillins] Physical Exam: Temp: [36.5 ??C (97.7 ??F)] Heart Rate: [82] Resp: [20] BP: (180)/(75) SpO2: [100 %] Heart Rate from SpO2: -- General: NAD, resting comfortably HEENT: PERRL, anicteric sclerae CVS: Regular rate, no murmurs rubs or gallops Pulm: Clear bilaterally Abd: soft, non tender, non distended Ext: RLE: No edema. Skin warm and pink. No tissue loss. Brisk capillary refill. LLE: No edema. Skin warm and pink. No tissue loss. Brisk capillary refill. Neuro: Grossly nonfocal, moving all extremities. Vascular Exam: R L Carotid 2/2 2/2 Radial 2/2 2/2 Femoral 2/2 0/2 DP 2/2 0/2 PT 2/2 0/2 Labs: No results for input(s): WBC, HGB, HCT, PLATELET in the last 72 hours. No results for input(s): NA, K, CL, CO2, BUN, CREATININE, PHOS, CALCIUM in the last 72 hours. Studies/Imaging: CTA BLE (03/01/2020): Focal severe L TRAVERSE ROD ASSEMBLER stenosis ABIs (03/05/2020): Right ?Pressure (mm Hg) ?? CHRISTIANA ??Waveform ?TBI ?? Brachial Artery ?163 ? Common Femoral Artery ?Triphasic ? Popliteal Artery ? Triphasic ? Dorsalis Pedis (Ankle) Artery ?188 ? 1.13 ??Triphasic ? Posterior Tibial (Ankle) Artery ??210 ? 1.26 ??Triphasic ? Great Toe ?135 ?0.81? Left ? Pressure (mm Hg) ?? CHRISTIANA ??Waveform ?TBI ?? Brachial Artery ?167 ? Common Femoral Artery ?Monophasic ? Popliteal Artery ? Wilkin-Biphasic ? Dorsalis Pedis (Ankle) Artery ?126 ? 0.75 ??Wilkin-Biphasic ? Posterior Tibial (Ankle) Artery ??139 ? 0.83 ??Wilkin-Biphasic ? Great Toe ?88 ? 0.53 ? Interpretation: ?? RIGHT: No significant lower extremity arterial occlusive disease. Normal ankle/brachial pressure ratios, ankle Doppler waveforms and toe pressures. ?? LEFT: Mild lower extremity arterial occlusive disease. Findings are consistent with common femoral disease level. Assessment and Plan: Killian Krishnan is a 44 y.o. male with L blue toe syndrome in setting of severe L TRAVERSE ROD ASSEMBLER stenosis. Plan for L femoral endarterectomy. Risks, benefits, and alternatives were discussedand patient elects to proceed. Robin Aguilar [place] [facility] Pager #[phone] documented in this encounter Miscellaneous Notes Initial Assessments - Timoteo Lawrence, RN - 03/16/2020 11:16 AM EDT Office of Care Management Assessment Medical record reviewed. Plan of care and patient status discussed with direct care RN and/or Care Team in multidisciplinary rounds. Screening: Last COVID test: None 44 y.o. male here for L femoral endarterectomy Present on Admission: ??? Blue toe syndrome of left lower extremity Patient has not been admitted to a hospital within the last 30 days. Patient receiving hospital care under Inpatient status. Admission order reviewed. Primary Insurance on file: [employer] [place] Secondary Insurance on file: None Primary care provider on file: Ilsa Smith MD [phone] Advance Directive on file and Code Status: Full Code. If AD's have not been completed Valorie krishnan would be surrogate decision maker per [place] surrogate decision making law. Any patient receiving [place] at [facility] must abide by [place] law. The hierarchy for surrogate decision making is: (a) Patient???s spouse, or civil union partner or common law spouse unless there is a divorce proceeding, separation agreement, or restraining order limiting that person???s relationship with the patient. (b) Any adult son or daughter of the patient. (c) Either parent of the patient. (d) Any adult brother or sister of the patient. (e) Any adult grandchild of the patient. (f) Any grandparent of the patient. (g) Any adult aunt, uncle, niece, or nephew of the patient. (h) A close friend of the patient. (i) The agent with financial power of regulatory attorney or a conservator appointed in accordance with RSA 464-A. (j) The guardian of the patient???s estate. Patient???s Functional Status: Standby assist Living Situation: Lives at home w/ spouse [phone] [facility] [phone] Supports: Family Assessment: Patient with no apparent RNCM/SW needs at this time. No housing, transportation, insurance, resources concerns identified at this time. Supports in place to achieve a safe post-hospital transition. No identified barriers to accessing necessary care and/or follow-up after discharge. Plan: Patient to d/c to home via family when medically ready. tunneller/Powder Hand will continue to follow patient???s progress and remain available if situation changes for coordination of care, psychosocial support and/or discharge planning. Timoteo Lawrence RN Pager [phone] Plan of Care - Mikaela Martell PTA - 03/16/2020 11:04 AM EDT Physical Therapy Note Treatment Number PT: 2 Patient profile: Killian Krishnan is a 44 y.o. male admitted on 03/14/[address] Tenisha Moreland MD for Recurrent blue toe syndrome. S/p L iliofemoral endarterectomy and patch angioplasty. Pt with vasovagal episode 03/15/20 AM. Interval History: LUZ Social History: Home set-up: Currently lives with and 5 year old in a 5th wheel camper, as he is [facility]. Bedroom is up 2 stairs with a rail. Stairs: 3 MALENA with a railing Baseline Mobility: Pt ambulates without a device. Equipment at home: None Fall history: none ?? Precautions/Special Considerations: Groin incision. ?? Mobility and Positioning Recommendations: ?? Pt. Ambulates indep without AD. ?? Please encourage up to chair for meal times as able. ?? Pt wears crocs on feet for gait. ?? Subjective: ???I am feeling better this afternoon. I am a little dizzy? Objective: Patient seen for physical therapy and demonstrated the following: ?? Pain: At rest 01/05 with mobility 04/07 Vital Signs: Stable on RA Bed Mobility: Supine to Sit: Indep Sit to Supine: Indep ?? Transfers: Sit to Stand: Indep Stand to Sit: Indep ?? Gait: Distance: 150 Feet Device used: none Level of assist: supervision/Indep Gait mechanics: Gait speed slow 2/2 to pain, but no overt LOB noted. Stairs: Up and down 3 steps with railing, indep. Cue for sequencing. ?? Balance: Sitting Static: WNL Sitting Dynamic: WNL Standing Static: good Standing Dynamic / Gait: good ?? Education: Home mobility and energy conservation. Pt left supine in bed and with all needs met at end of session. ? Assessment: Killian Krishnan was seen today for physical therapy treatment session for continuation of POC. Improved ambulation distance, still having difficulties with pain when upright. Able to perform stairs without difficulties. No reports of dizziness today with mobility. All goals met set by primary PT. Pt will benefit from ongoing therapeutic interventions to achieve therapy goals. ?? Discharge Recommendations: Based on the current findings, Anticipated Discharge Disposition: home with assist when medically ready for hospital discharge. ?? Consult Recommendations: No other consults recommended at this time. ?? Equipment needs: No equipment necessary ? Goals: To be achieved by 03/16: ALL MET ?? 1. Pt. to perform bed mobility with modified independence. 2. Pt. to perform sit<>stand transfers with modified independence using no assistive device. 3. Pt. to ambulate 150 feet with supervision using a no assistive device. 4. Pt. to ambulate up/down 3 step/stairs using one rail with supervision. 5. Pt will tolerate progression towards upright with stable vital signs. Plan of Care - Sushila Fisher I RN - 03/16/2020 7:04 AM EDT Problem: Patient Care Overview Goal: Plan of Care Review Outcome: Ongoing (Interventions Implemented as Appropriate) 03/16/20700 Plan of Care Review Progress progress toward functional goals as expected Coping/Psychosocial Plan Of Care Reviewed With patient OUTCOME EVALUATION NOTE: OUTCOME SUMMARY: Killian had a good night. Pt slept well in between care. AAOx4. VSS. Afebrile. Pt denies nausea. Pain well controlled with PRNs and scheduled meds. Pt voiding adequate amounts in bathroom and urinal. Pt passing gas; pt had no BMs this shift. Patient abd slightly distended. Patient refused bowel meds overnight. L groin incision is CDI, dressing in place with gauze and tegaderm. Soft non tender at the site. Neurovasc checks palpable lower extremity pulses. Pt ambulated in room. Will continue to monitor. PLAN MOVING FORWARD: Encourage independence. Encourage ambulation. Encourage fluids/nutrition. Maintain pain control. INDIVIDUALIZED FALL PREVENTION INTERVENTIONS: Patient-specific fall risk factors per assessment: [current deficits]: Generalized Weakness, recent surgery, Groin incision Assistance [level of assistance required for transfers and ambulation]: SBA Supervision [direct monitoring required during toileting and ADLs]: Hands on Surveillance [continuous indirect monitoring]: Masimo, purposeful rounding, call crocker in reach Patient-specific fall prevention interventions for sensory deficits provided, if applicable: [X] Yes, environmental modifications, lights adjusted to task, non- skid socks CPG GOAL OUTCOME EVALUATION: Ongoing Plan of Care - Jenn Barksdale RN - 03/15/2020 4:38 PM EDT Problem: Patient Care Overview Goal: Plan of Care Review Outcome: Ongoing (Interventions Implemented as Appropriate) 03/15/20 0732 03/15/20 1607 Plan of Care Review Progress -- progress towards functional goals is fair Coping/Psychosocial Plan Of Care Reviewed With patient -- Goal: Fall Prevention-Safe Patient Handling Outcome: Ongoing (Interventions Implemented as Appropriate) 03/15/20 0732 Feng Fall Risk History of Falling 0 Secondary Diagnosis 15 Ambulatory Aids 15 Intravenous Therapy/Heparin/Saline Lock 20 Gait/Transferring 0 Mental Status 0 Score 50 OTHER Feng Fall Risk High Restraint Interventions Safety Promotion/Fall Prevention activity supervised;fall prevention program maintained;nonskid shoes/slippers when out of bed Positioning Body Position supine, head elevated Activity Activity Type activity encouraged Activity Assistance Provided assistance, 1 person Assistive Device Utilized cane Goal: Infection Control Outcome: Ongoing (Interventions Implemented as Appropriate) 03/15/20 0732 Safety Interventions Isolation Precautions standard precautions maintained Infection Prevention environmental surveillance performed Coping Strategies Supportive Measures active listening utilized;relaxation techniques promoted Goal: Interdisciplinary Rounds/Family Conf Outcome: Ongoing (Interventions Implemented as Appropriate) 03/15/20 1607 Interdisciplinary Rounds/Family Conf Participants patient;physician;nursing;family;physical therapy;occupational therapy Problem: Skin Integrity Impairment, Risk/Actual (Adult) Goal: Identify Related Risk Factors and Signs and Symptoms Related risk factors and signs and symptoms are identified upon initiation of Human Response Clinical Practice Guideline (CPG) Outcome: Ongoing (Interventions Implemented as Appropriate) 03/15/20 1607 Skin Integrity Impairment, Risk/Actual Skin Integrity Impairment, Risk/Actual: Related Risk Factors edema;surgery/procedure;sensory impairment Signs and Symptoms (Skin Integrity Impairment) edema Goal: Skin Integrity/Wound Healing Patient will demonstrate the desired outcomes by discharge/transition of care. Outcome: Ongoing (Interventions Implemented as Appropriate) 03/15/20 1607 Skin Integrity Impairment, Risk/Actual (Adult) Skin Integrity/Wound Healing making progress toward outcome OUTCOME EVALUATION NOTE: OUTCOME SUMMARY: VSS w/ pt on RA. After pt's bedrest orders were dc'd; staff got pt OOB and worked on changing positions slowly since pt c/o lightheadedness. Pt placed in chair in upright position, however, after about30 minutes pt became symptomatic and was cool/clammy, nauseated, and dizzy while sitting in chair. VS checked and stable with SBP in 100s; previous readings were in 130s. Pt was reclined backwards in chair, blood sugar also checked; s/s improved after pt was reclined and BP increased back to 130s. Left groin site incision dressing changed d/t moderate drainage and dressing loose. Incision approximated w/ radha and sutures intact. Pt has reported various pain levels so far this shift which have been managed by scheduled and prn medication interventions. No additional s/s of distress noted at this time; call light in reach and safety measures in place. PLAN MOVING FORWARD: Monitor VS, pain, I/Os; trend PVRs and monitor UO; ambulate; d/c planning INDIVIDUALIZED FALL PREVENTION INTERVENTIONS: Patient-specific fall risk factors per assessment: [current deficits]: Recent sx; intermittent lightheadedness w/ standing Assistance [level of assistance required for transfers and ambulation]: SB assist Supervision [direct monitoring required during toileting and ADLs]: Eyes on, within arms reach Surveillance [continuous indirect monitoring]: Hourly rounding, bed/chair alarm Patient-specific fall prevention interventions for sensory deficits provided, if applicable: [X] Yes CPG GOAL OUTCOME EVALUATION: Stable Plan of Care - Phyllis Kearney, PT - 03/15/2020 2:10 PM EDT Physical Therapy Evaluation Patient profile: Killian Krishnan is a 44 y.o. male admitted on 03/14/[address] Tenisha Moreland MD for Recurrent blue toe syndrome. S/p L iliofemoral endarterectomy and patch angioplasty. Pt with vasovagal episode 03/15/20 AM. Patient with the following active problems: Past Medical History: Diagnosis Date ??? 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 Diabetes type 2 ??? High blood pressure on medication ??? Status post chemotherapy 25 years ago ??? Status post radiation therapy ??? Transfusion history around 25 years ago, with cancer treatment Past Surgical History: Procedure Laterality Date ??? PRO THROMBOENDARTECTMY ILIOFEMORAL Left 03/14/2020 @ENDARTERECTOMY, ILIOFEMORAL W OR W/O PATCH GRAFT (WRVU 19.86) performed by Tenisha Moreland MD at [facility] MA[facility] OR Active Non-Hospital Problems Diagnosis ??? Psoriasis ??? Dermatitis, contact Social History: Home set-up: Currently lives with and 5 year old in a 5th wheel camper, as he is building theirhome. Bedroom is up 2 stairs with a rail. Stairs: 3 MALENA with a railing Baseline Mobility: Pt ambulates without a device. Equipment at home: None Fall history: none Precautions/Special Considerations: Monitor BP given episode of hypotension. Lines: PIV BUEs, anjali Activity Orders: AAT Mobility and Positioning Recommendations: ?? Pt. to utilize no device and close supervision to cga and one person for ambulation and transferswith nursing. ?? Please encourage up to chair for meal times as able. ?? Pt wears crocs on feet for gait. Subjective: ???I am feeling better this afternoon. I am a little dizzy?? Objective: Pt seen for evaluation today. Pain: Number Location At rest 01/05 LLE incision With activity 01/05 Same Vital Signs: At Rest With Activity SpO2 (RA) 97% 98% BP (MAP) 141/79 mmHg fully reclined 147/71 mmHg sitting upright HR 79bpm 80s bpm Mental Status: alert, oriented to person, place, and time Vision: glasses Skin: L ant hip dressing with serous drainage, marked earlier by staff. LLE edematous. Musculoskeletal: ROM: BUE and RLE AROM wfls. L knee flex ~ 60-65 degrees and hip flex 90 in sitting. B ankle AROM wfls. Good Toe AROM. Strength: pt can SLR BLEs, decreased on the L. Good B ankle strength. B quads 5/5. BUE strength wfls. Sensation: Denied numbness or tingling. Bed Mobility: Supine to Sit: NE Sit to Supine: NE Transfers: Sit to Stand: min assist from the recliner Stand to Sit: same Gait: Distance: ~80', 1/[address] with cane in R hand (Did not felt it made a difference), otherwise no device Device used: See above Level of assist: Cg to close supervision Gait mechanics: slow, reciprocal pattern with decreased step length on LLE. Crocs on for ambulation. Stairs: NE Balance: Sitting Static: good Sitting Dynamic: good Standing Static: good Standing Dynamic / Gait: Fair+ Pt stood at toilet and urinated in the urinal. Education: patient has been educated on Transfers, Positioning, Safety , Gait , Role of therapy, Balance and Discharge planning and verbalizes understanding. Patient status, treatment, and mobility recommendations discussed with nursing. present throughout session. Nurse notified that pt used the urinal. Assessment: Killian Krishnan was seen today for physical therapy evaluation. Pt is POD 1 LLE vascular surgery. Toes on Left foot are no longer discolored and pain is improving, per pt.. Pt is functionally limited and in need of skilled PT 2/2 the following: Post op pain; stairs to enter home; decreased endurance; Altered skin integrity; labile BP; mild anemia; impaired LLE strength and ROM; and impaired gait, transfers, bed mobility and balance. Pt did not feel he needed a cane or crutches and preferred to walk without devices. Pt without LOB but did have a hypotensive episode with nursing, earliertoday. Making gains. Pt only to be seen for bed mobility and stair training. Expect dc to home with f amily assist over the next 24 hours. The pt would benefit from skilled therapy services while in thehospital to maximize functional abilities. BP was elevated when checked but he still may have gottenmildly hypotensive during gait. Discharge Recommendations: Based on the current findings, Anticipated Discharge Disposition: home with assist when medically ready for hospital discharge. Consult Recommendations: No other consults recommended at this time. Equipment needs: No equipment necessary Goals: To be achieved by 03/16: 1. Pt. to perform bed mobility with modified independence. 2. Pt. to perform sit<>stand transfers with modified independence using no assistive device. 3. Pt. to ambulate 150 feet with supervision using a no assistive device. 4. Pt. to ambulate up/down 3 step/stairs using one rail with supervision. 5. Pt will tolerate progression towards upright with stable vital signs. Plan: Therapy Frequency: 1-3 more visits for therapy including balance training, bed mobility training, gait training, patient/family education, range of motion, stair training and transfer training. Patient/family understand and agree with plan as stated above. 2017 PT Evaluation Code Rationale: ?? Diagnosis & Pertinent Co-Morbidities, personal factors, and present illness affecting Plan ofCare: (see above); Additional personal factors or co- morbidities that impact plan: ?? Total # of Factors: 0 1-2 3+ x ?? Examination of body system impairments, functional limitations and behaviors, and/or participation restrictions. Addressing 1-2 elements Addressing 3 + elements x Addressing 4 + elements ?? Clinical presentation: See assessment above. Stable/Uncomplicated Evolving/Fluctuating Symptoms Unstable/Unpredictable x ?? Clinical decision making of moderate complexity based on pt's functional performance as outlined in this evaluation. Time IN / OUT: 3036-2730 Total Evaluation Minutes, Physical Therapy: 25(mod complexity EV and TEF) PHYLLIS KEARNEY, PT Pager: [phone] Physical Therapy Inpatient Rehabilitation Department Plan of Care - Rich Puente RN - 03/15/2020 3:44 AM EDT Problem: Patient Care Overview Goal: Plan of Care Review Outcome: Ongoing (Interventions Implemented as Appropriate) 03/14/20 2105 03/15/20 0339 Plan of Care Review Progress -- no change Coping/Psychosocial Plan Of Care Reviewed With patient -- OUTCOME EVALUATION NOTE: OUTCOME SUMMARY: Patient alert and oriented X 4 with pain located to left groin region. Patient shows to have peripheral pulses present with slight edema to LLE and redness noted to foot. Patient has not reported any chest pain or shortness of breath. Lung field show to be clear with patient currently not requiring any O2. Patient has baseline peripheral lower extremity numbness and tingling to LLE. Patient has been able to keep louise patent with no distress noted. Vital signs remain stable. Slight drainage was noted to Left groin site with no increase from marking. Pain has been moderately controlled on current regimen. Pt remains on bedress per MD. Will continue to monitor. PLAN MOVING FORWARD: Pain control Mobilize Glucose control Wound care Neurovascular checks INDIVIDUALIZED FALL PREVENTION INTERVENTIONS: Patient-specific fall risk factors per assessment: [current deficits]: Bed rest Assistance [level of assistance required for transfers and ambulation]: Unknown at this time Supervision [direct monitoring required during toileting and ADLs]: No direct supervision required Surveillance [continuous indirect monitoring]: Masimo, Hourly rounds, Nursing communication Patient-specific fall prevention interventions for sensory deficits provided, if applicable: [X] No CPG GOAL OUTCOME EVALUATION: Goal: Individualization & Mutuality Outcome: Ongoing (Interventions Implemented as Appropriate) 03/15/20338 Individualization Patient Specific Preferences none Patient Specific Goals none Patient Specific Interventions none Mutuality/Individual Preferences What Anxieties, Fears or Concerns Do You Have About Your Health or Care? none What Questions Do You Have About Your Health or Care? none What Information Would Help Us Give You More Personalized Care? none Goal: Fall Prevention-Safe Patient Handling Outcome: Ongoing (Interventions Implemented as Appropriate) 03/14/202104 Feng Fall Risk History of Falling 0 Secondary Diagnosis 15 Ambulatory Aids 0 Intravenous Therapy/Heparin/Saline Lock 20 Gait/Transferring 0 Mental Status 0 Score 35 OTHER Feng Fall Risk Med Restraint Interventions Safety Promotion/Fall Prevention activity supervised;fall prevention program maintained;safety round/check completed Positioning Body Position supine, head elevated Activity Activity Type activity adjusted per tolerance Assistive Device Utilized none Goal: Infection Control Outcome: Ongoing (Interventions Implemented as Appropriate) 03/14/202104 Safety Interventions Isolation Precautions standard precautions maintained Infection Prevention barrier precautions utilized;rest/sleep promoted;single patient room provided Coping Strategies Supportive Measures active listening utilized;counseling provided;decision- making supported;goal setting facilitated;guided imagery facilitated;positive reinforcement provided;problem solving facilitated;relaxation techniques promoted;verbalization of feelings encouraged Goal: Discharge Needs Assessment Outcome: Ongoing (Interventions Implemented as Appropriate) 03/15/20338 Discharge Needs Assessment Discharge Disposition still a patient Goal: Interdisciplinary Rounds/Family Conf Outcome: Ongoing (Interventions Implemented as Appropriate) 03/15/20338 Interdisciplinary Rounds/Family Conf Participants patient;nursing Op Note - Tae Tyson MD - 03/14/2020 6:25 PM EDT [facility] [place] Patient Name: Killian Krishnan : [id number] MR#: [id number] Case Date: 03/14/2020 Surgeon: Surgeon(s) and Role: * Tenisha Moreland MD - Primary * Tae Tyson MD - Resident Preoperative diagnosis: Left leg CLI Postoperative diagnosis: Left leg CLI Procedures: 1. Left iliofemoral endarterectomy and patch angioplasty Findings: Fibrotic, woody tissues in the left groin. Heavily calcified common femoral artery with focal area of bulky, calcific plaque. Endarterectomy and patch angioplasty performed. Palpable DP and PT pulses at case completion. Anesthesia: General Estimated Blood Loss: 200 mL Fluids: 1,400 mL ?? Heparin: 9,000 units ?? Protamine: 30 mg ?? PRBCs: none (See Anesthesia Record/Report for Other Blood Products) Urine Output: 400 mL Specimens removed during surgery: None Drains: None Surgical Closure: Primary Closure - skin incision is completely closed without any wires, natalei, drains or other devices Disposition: awakened from anesthesia, extubated and taken to the recovery room in a stable condition, having suffered no apparent untoward event. Condition: doing well without problems (Please see the Surgical Encounter Summary for any Implant and Specimen details pertinent to this patient.) HPI/Surgical Indications: Killian Krishnan is a 44 y.o. male with L blue toe syndrome in setting of severe L [employer]VER[employer] stenosis. Plan for L femoral endarterectomy. Procedure Description: After informed consent was obtained the patient was brought back to the operating room and placed supine on the OR table. General anesthesia was induced and the patient was intubated with an ETT. Additional support lines (louise, arterial line, PIVs) were placed. Preoperative antibiotics were given. A timeout was performed. Attention was then turned to the patient's left leg, which was prepped and draped in the standard sterile fashion. A longitudinal incision was made overlying the patient's left common femoral artery. Subcutaneous tissue was divided with a combination of electrocautery and sharp dissection with metzenbaums. The tissues were notably fibrotic and woody from previous radiation therapy to the region. The inguinal ligament was divided to allow for adequate exposure. The distal external iliac, superficial femoral, profunda and circumflex arteries were circumferentially dissected and encircled with vessel loops. Systemic heparin was given and the vessels were clamped. An arteriotomy was made along the common femoral artery with an 11-blade and extended with Pott's scissors. An endarterectomy was then performed in standard fashion starting in the distal external iliac artery and continuing to the common femoral artery. A bovine pericardial patch was then cut to size and sewn in place with running 6-0 prolene suture for patch angioplasty. Prior to completion of the patch angioplasty, the arteries were all flushed to expel debris and air. The patch angioplasty was completed and all clamps were removed. Doppler confirmed excellent, flow through the patched segment and into both the SFA and profunda. Protamine was given. Hemostasis was ensured with surgicel wr apped gelfoam and cautery. The inguinal ligament was re-approximated with #1 prolene [id number]. The wound was then closed in multiple layers of interrupted 2-0 vicryl sutures followed by 3-0 vicryl deep dermal sutures and a combination of 3-0 prolene vertical mattress sutures and radha. The incision was dressed with gauze and tegaderm. The patient was awoken, extubated and taken to PACU in stable condition. All counts were reported to be correct. Infection Bundle used? No Associated attestation - Tenisha Moreland MD - 03/31/2020 5:58 PM EDT Attestation: Case Date: 03/14/2020 I was present and I participated during the entire procedure (does not need to include opening and closing). Tenisha Moreland MD 03/31/2020 Brief Op Note - Tae Tyson MD - 03/14/2020 12:59 PM EDT Brief Operative Note Patient Name: Killian Krishnan : [id number] MR#: [id number] Case Date: 03/14/2020 Surgeon: Surgeon(s) and Role: * Tenisha Moreland MD - Primary * Tae Tyson MD - Resident Preoperative diagnosis: Left leg CLI Postoperative diagnosis: Left leg CLI Procedures: 1. Left iliofemoral endarterectomy and patch angioplasty Anesthesia: General Findings: Fibrotic, woody tissues in the left groin. Heavily calcified common femoral artery with focal area of bulky, calcific plaque. Endarterectomy and patch angioplasty performed. Palpable DP and PT pulses at case completion. Complications: None Estimated Blood Loss: 200 mL Specimens removed during surgery: None Fluids: 1,400 mL Heparin: 9,000 units Protamine: 30 mg PRBCs: none (See Anesthesia Record/Report for Other Blood Products) Urine Output: 400 mL Drains: None Disposition: awakened from anesthesia, extubated and taken to the recovery room in a stable condition, having suffered no apparent untoward event. Condition: doing well without problems (Please see the Surgical Encounter Summary for any Implant and Specimen details pertinent to this patient.) Infection Bundle used? No documented in this encounter Plan of Treatment Not on filedocumented as of this encounter Procedures Procedure Name Priority Date/Time Associated Comments Diagnosis POCT GLUCOSE Routine 03/16/2020 11:55 Results for this AM EDT procedure are i n the results section. POCT GLUCOSE Routine 03/16/2020 7:34 AM Results f or this EDT procedure are i n the results section. HEMOGRAM Routine 03/16/2020 4:04 AM Results f or this EDT procedure are i n the results section. DIFFERENTIAL, Routine 03/16/2020 4:04 AM Results for this AUTOMATED EDT procedure are i n the results section. HC VENIPUNCTURE Routine 03/16/2020 4:04 AM EDT BASIC METABOLIC PANEL Routine 03/16/2020 4:04 AM Results for this (NON-FASTING) EDT procedure are in the results section. POCT GLUCOSE Routine 03/15/2020 8:40 PM Results f or this EDT procedure are i n the results section. POCT GLUCOSE Routine 03/15/2020 7:36 PM Results f or this EDT procedure are i n the results section. POCT GLUCOSE Routine 03/15/2020 4:16 PM Results f or this EDT procedure are i n the results section. POCT GLUCOSE Routine 03/15/2020 11:35 Results for this AM EDT procedure are i n the results section. POCT GLUCOSE Routine 03/15/2020 9:54 AM Results f or this EDT procedure are i n the results section. POCT GLUCOSE Routine 03/15/2020 7:33 AM Results f or this EDT procedure are i n the results section. BMP W/FASTING GLUCOSE Routine 03/15/2020 4:11 AM Results for this EDT procedure are i n the results section. HEMOGRAM Routine 03/15/2020 4:11 AM Results f or this EDT procedure are i n the results section. DIFFERENTIAL, Routine 03/15/2020 4:11 AM Results for this AUTOMATED EDT procedure are i n the results section. HC CBC,PLT & AUTO DIFF Routine 03/15/2020 4:11 AM EDT HC TRIGLYCERIDES Routine 03/15/2020 4:11 AM Resul ts for this EDT procedure are i n the results section. HC VENIPUNCTURE Routine 03/15/2020 4:11 AM Result s for this EDT procedure are i n the results section. HC CHOLESTEROL Routine 03/15/2020 4:11 AM Results for this EDT procedure are i n the results section. POCT GLUCOSE Routine 03/15/2020 1:14 AM Results f or this EDT procedure are i n the results section. POCT GLUCOSE Routine 03/14/2020 8:48 PM Results f or this EDT procedure are i n the results section. ENDARTERECTOMY, Routine 03/14/2020 5:59 PM ILIOFEMORAL W OR W/O EDT PATCH GRAFT POCT GLUCOSE Routine 03/14/2020 5:53 PM Results f or this EDT procedure are i n the results section. POCT GLUCOSE Routine 03/14/2020 4:36 PM Results f or this EDT procedure are i n the results section. POCT GLUCOSE Routine 03/14/2020 12:50 Results for this PM EDT procedure are i n the results section. BLOOD GAS 2 ARTERIAL Routine 03/14/2020 9:16 AM R esults for this EDT procedure are i n the results section. @ENDARTERECTOMY, 03/14/2020 8:31 AM Left leg CLI ILIOFEMORAL W OR W/O EDT PATCH GRAFT (WRVU 19.86) POCT GLUCOSE Routine 03/14/2020 7:16 AM Results f or this EDT procedure are i n the results section. documented in this encounter Results CHRISTIANA, legs, multiple levels (04/03/2020 1:16 PM EDT) Component Value Ref Test Analysis Performed At [facility] Range Method Time Signature VB Text Department: Vascular Surgery Lab VASCUBASE Report Patient: [id number] (KILLIAN KRISHNAN) CPT: 46150 ICD10: I75.022 Referring Physician: TENISHA MORELAND MD [...] Address City/State/ZIP Code Phon e Number [place] POCT Glucose (03/16/2020 11:55 AM EDT) P athologist Signature POC Glucose 175 65 - 199 [place] mg/dL [facility] Comment: Supplemental ranges: <140 mg/dL before meals <180 mg/dL all other times of the day Specimen Anatomical Collection Method Collection Time Receive d Time (Source) Location / / Volume Laterality Blood specimen 03/16/2020 11:55 0 (specimen) AM EDT 11:55 AM EDT Tenisha Moreland MD POINT OF CARE TEST ORDERABLE S Performing Organization Address City/State/ZIP Code Phon e Number [place] [id number] POCT Glucose (03/16/2020 7:34 AM EDT) P athologist Signature POC Glucose 150 65 - 199 [facility] mg/dL [facility] Comment: Supplemental ranges: <140 mg/dL before meals <180 mg/dL all other times of the day Specimen Anatomical Collection Method Collection Time Receive d Time (Source) Location / / Volume Laterality Blood specimen 03/16/2020 7:34 AM 020 7:34 (specimen) EDT AM EDT Tenisha Moreland MD POINT OF CARE TEST ORDERABLE S Performing Organization Address City/[facility]/[place] [address] (ABNORMAL) Differential, Automated (03/16/2020 4:04 AM EDT) Patholo gist Method Time Signature Neutrophils % 69.4 % [facility] Neutr Abs (ANC) 6.37 (H) 1.70 - [facility] 6.10 [facility] x10(3)/[facility] LABORATORY Lymphocytes % 19.5 % [facility] Lymphocytes Abs 1.8 0.9 - 3.2 [facility] x10(3)/[facility] LABORATORY Monocytes % 8.5 % [facility] Monocyte Abs 0.8 0.3 - 0.9 [facility] x10(3)/[facility] LABORATORY Eosinophils % 1.8 % [facility] Eosinophils Abs 0.2 0.0 - 0.4 [facility] x10(3)/[facility] LABORATORY Basophils % 0.4 % [facility] Basophils Abs 0.0 0.0 - 0.1 [facility] x10(3)/[facility] LABORATORY Immature Gran % 0.40 % [facility] Comment: Immature granulocytes(IG's)percentage an d absolute count will include metamyelocytes, myelocytes, and promyelo cytes. Blood smears from CBCs yielding IG's will be scanned manually for wilder [place]. If this scan disagrees with the automated IG or if promyelocytes are not ed, a manual differential will be performed. Qi Gran Abs 0.04 0.00 - 0.04 x10(3)/[facility] LAB[facility] Specimen Anatomical Collection Method Collection Time Receive d Time (Source) Location / / Volume Laterality Blood specimen 03/16/2020 4:04 AM 020 4:47 (specimen) EDT AM EDT Resulting Agency Comment Spec In Lab Tae Tyson MD HEMATOLOGY ORDERABLES Performing Organization Address City/State/ZIP Code Phon e Number [place] [id number] (ABNORMAL) Hemogram (03/16/2020 4:04 AM EDT) Analysis Performed At Patho logist Time Signature WBC 9.2 4.0 - 9.5 [facility] x10(3)/[facility] LABORATORY RBC 3.82 (L) 4.58 - [facility] 5.54 [facility] x10(6)/[facility] LABORATORY Hemoglobin 11.5 (L) 13.7 - [facility] 16.5 gm/dL [facility] Hematocrit 34.0 (L) 40.5 - [facility] 48.5 % [facility] MCV 89.0 82.9 - [facility] 93.1 [facility] LABORATORY MCH 30.1 27.5 - [facility] [place] 32.1 pg [facility] MCHC 33.8 32.0 - [facility] 35.7 gm/dL [facility] Platelets 223 145 - 357 [facility] x10(3)/[facility] LABORATORY RDWSD 40.9 36.0 - [facility] 45.0 [facility] LABORATORY RDWCV 12.6 11.4 - [facility] 13.8 % [facility] MPV 9.9 7.6 - 12.9 [facility] LABORATORY nRBC % Auto 0.0 % [facility] nRBC Abs Auto 0.000 0.000 - [facility] 0.000 [facility] x10(3)/[facility] LABORATORY Specimen Anatomical Collection Method Collection Time Receive d Time (Source) Location / / Volume Laterality Blood specimen 03/16/2020 4:04 AM 020 4:47 (specimen) EDT AM EDT Resulting Agency Comment Spec In Lab Tae Tyson MD HEMATOLOGY ORDERABLES Performing Organization Address City/State/ZIP [place] [address] Basic Metabolic Panel (non-fasting) (03/16/2020 4:04 AM EDT) athologist Signature Glucose Lvl 157 65 - 199 [facility] mg/dL [facility] Comment: Diabetes: >=200 mg/dL plus symp toms BUN 15 10 - 20 mg/dL [facility] Creatinine 1.05 0.80 - 1.50 mg/dL [facility] LAB[facility]ORY Sodium 137 135 - 145 mmol/L [facility] Potassium 3.8 3.5 - 5.0 mmol/L [facility] Comment: Please note: ??Patients with WBC >100,00 0 may have falsely elevated Potassium levels. ??For accurate Potassium quantif ication in these patients send serum separator tube (gold top) for subsequent determinations. ??Contact the Clinical Chemistry Laboratory if there are any qu estions. Chloride 103 98 - 107 mmol/L [facility] CO2 24 22 - 31 mmol/L [facility] Anion Gap 10 5 - 15 mmol/L [facility] Calcium 8.9 8.5 - 10.5 mg/dL [facility] Estimated GFR 85 >=60 mL/min/1.73 m?? [facility] Comment: The eGFR was calculated using the CKD-EP I equation. As with all creatinine based estimates of kidney function, eGFR values calculated with the CKD-EPI equation are not accurate in patients wi th acute kidney failure, extremes of body mass or the acutely ill. http://[facility] TISHOMINGOnkf eGFR 98 >=60 mL/min/1.73 m?? [facility] Comment: The eGFR was calculated using the CKD-EP I equation. As with all creatinine based estimates of kidney function, eGFR values calculated with the CKD-EPI equation are not accurate in patients wi th acute kidney failure, extremes of body mass or the acutely ill. http://[facility]/DHMCnkf Specimen Anatomical Collection Method Collection Time Receive d Time (Source) Location / / Volume Laterality Blood specimen 03/16/2020 4:04 AM 020 4:47 (specimen) EDT AM EDT Resulting Agency Comment Spec In Lab Tenisha Moreland MD CHEMISTRY ORDERABLES Performing Organization Address City/[facility] Code Phon e Number [address] POCT Glucose (03/15/2020 8:40 PM EDT) P athologist Signature POC Glucose 193 65 - 199 [facility] Comment: Supplemental ranges: <140 mg/dL before meals <180 mg/dL all other times of the day Specimen Anatomical Collection Method Collection Time Receive d Time (Source) Location / / Volume Laterality Blood specimen 03/15/2020 8:40 PM 020 8:40 (specimen) EDT PM EDT Tenisha Moreland MD POINT OF CARE TEST ORDERABLE S Performing Organization Address City/[facility]/[place] [address] (ABNORMAL) POCT Glucose (03/15/2020 7:36 PM EDT) P athologist Signature POC Glucose 214 (H) 65 - 199 [facility] [place] mg/dL [facility] Comment: Supplemental ranges: <140 mg/dL before meals <180 mg/dL all other times of the day Specimen Anatomical Collection Method Collection Time Receive d Time (Source) Location / / Volume Laterality Blood specimen 03/15/2020 7:36 PM 020 7:36 (specimen) EDT PM EDT Tenisha Moreland MD POINT OF CARE TEST ORDERABLE S Performing Organization Address City/[facility]/[place] [address] (ABNORMAL) POCT Glucose (03/15/2020 4:16 PM EDT) athologist Signature POC Glucose 207 (H) 65 - 199 [facility] [place] mg/dL [facility] Comment: Supplemental ranges: <140 mg/dL before meals <180 mg/dL all other times of the day Specimen Anatomical Collection Method Collection Time Receive d Time (Source) Location / / Volume Laterality Blood specimen 03/15/2020 4:16 PM 020 4:16 (specimen) EDT PM EDT Tenisha Moreland MD POINT OF CARE TEST ORDERABLE S Performing Organization Address City/State/ZIP Code Phon e Number [address] POCT Glucose (03/15/2020 11:35 AM EDT) athologist Signature POC Glucose 169 65 - 199 [facility] [place] mg/dL [facility] Comment: Supplemental ranges: <140 mg/dL before meals <180 mg/dL all other times of the day Specimen Anatomical Collection Method Collection Time Receive d Time (Source) Location / / Volume Laterality Blood specimen 03/15/2020 11:35 0 (specimen) AM EDT 11:35 AM EDT Tenisha Moreland MD POINT OF CARE TEST ORDERABLE S Performing Organization Address City/State/[place] [address] POCT Glucose (03/15/2020 9:54 AM EDT) athologist Signature POC Glucose 187 65 - 199 [place] mg/dL [facility] Comment: Supplemental ranges: <140 mg/dL before meals <180 mg/dL all other times of the day Specimen Anatomical Collection Method Collection Time Receive d Time (Source) Location / / Volume Laterality Blood specimen 03/15/2020 9:54 AM 020 9:54 (specimen) EDT AM EDT Tenisha Moreland MD POINT OF CARE TEST ORDERABLE S Performing Organization Address City/State/ZIP Code [place] [address] POCT Glucose (03/15/2020 7:33 AM EDT) P athologist Signature POC Glucose 131 65 - 199 [place] mg/dL [facility] Comment: Supplemental ranges: <140 mg/dL before meals <180 mg/dL all other times of the day Specimen Anatomical Collection Method Collection Time Receive d Time (Source) Location / / Volume Laterality Blood specimen 03/15/2020 7:33 AM 020 7:33 (specimen) EDT AM EDT Tenisha Moreland MD POINT OF CARE TEST ORDERABLE S Performing Organization Address City/State/ZIP Code Phon e Number [place] [id number] (ABNORMAL) BMP w/fasting Glucose (03/15/2020 4:11 AM EDT) athologist Signature Glucose 141 (H) 65 - 99 [facility] Fasting mg/dL [facility] Comment: ?Fasting* Glucose Interpretive C riteria Normal ?65-99 mg/dL Impaired Fasting glucose ?100-125 mg/dL Consistent with Diabetes Mellitus ? >or= 126 mg/dL *Fasting is defined as no caloric intake for at least 8 hours In the absence of unequivocal hypergly cemia a plasma glucose value of >or= 126 mg/dL should be repeated on a subseq uent day. Diagnosis and Classification of Diabetes Mellitus, Position Statement from the [place] [employer]. ??Diabete s Care, Volume 33, Supplement 1, Aug 2009 BUN 15 10 - 20 mg/dL [facility] Creatinine 0.89 0.80 - 1.50 mg/dL [facility] Sodium 135 135 - 145 mmol/L [facility] Potassium 4.1 3.5 - 5.0 mmol/L [facility] Comment: Please note: ??Patients with WBC >100,00 0 may have falsely elevated Potassium levels. ??For accurate Potassium quantif ication in these patients send serum separator tube (gold top) for subsequent determinations. ??Contact the Clinical Chemistry Laboratory if there are any qu estions. Chloride 100 98 - 107 mmol/L [facility] CO2 26 22 - 31 mmol/L [facility] Anion Gap 9 5 - 15 mmol/L [facility] Calcium 8.8 8.5 - 10.5 mg/dL [facility] Estimated GFR 103 >=60 mL/min/1.73 m?? [facility] Comment: The eGFR was calculated using the CKD-EP I equation. As with all creatinine based estimates of kidney function, eGFR values calculated with the CKD-EPI equation are not accurate in patients wi th acute kidney failure, extremes of body mass or the acutely ill. http://[facility] T[facility]OMINGOnkf eGFR 119 >=60 mL/min/1.73 m?? [facility] Comment: The eGFR was calculated using the CKD-EP I equation. As with all creatinine based estimates of kidney function, eGFR values calculated with the CKD-EPI equation are not accurate in patients wi th acute kidney failure, extremes of body mass or the acutely ill. http://[facility] T[facility]INGOnkf Specimen Anatomical Collection Method Collection Time Receive d Time (Source) Location / / Volume Laterality Blood specimen 03/15/2020 4:11 AM 020 4:47 (specimen) EDT AM EDT Resulting Agency Comment Spec In Lab Tae Tyson MD CHEMISTRY ORDERABLES Performing Organization Address City/State/ZIP [place] [address] (ABNORMAL) Differential, Automated (03/15/2020 4:11 AM EDT) [facility] Method Time Signature Neutrophils % 68.8 % [facility] Neutr Abs (ANC) 6.63 (H) 1.70 - [facility] 6.10 [facility] x10(3)/[facility] L LABORATORY Lymphocytes % 22.9 % [facility] Lymphocytes Abs 2.2 0.9 - 3.2 [facility] x10(3)/[facility] LABORATORY Monocytes % 6.5 % [facility] Monocyte Abs 0.6 0.3 - 0.9 [facility] x10(3)/[facility] LABORATORY Eosinophils % 1.2 % [facility] Eosinophils Abs 0.1 0.0 - 0.4 [facility] x10(3)/[facility] LABORATORY Basophils % 0.4 % [facility] Basophils Abs 0.0 0.0 - 0.1 [facility] x10(3)/[facility] LABORATORY Immature Gran % 0.20 % [facility] Comment: Immature granulocytes(IG's)percentage an d absolute count will include metamyelocytes, myelocytes, and promyelo cytes. Blood smears from CBCs yielding IG's will be scanned manually for concor dance. If this scan disagrees with the automated IG or if promyelocytes are not ed, a manual differential will be performed. Qi Gran Abs 0.02 0.00 - 0.04 x10(3)/[facility] Specimen Anatomical Collection Method Collection Time Receive d Time (Source) Location / / Volume Laterality Blood specimen 03/15/2020 4:11 AM 020 4:47 (specimen) EDT AM EDT Resulting Agency Comment Spec In Lab Tae Tyson MD HEMATOLOGY ORDERABLES Performing Organization Address City/State/ZIP [place] [address] (ABNORMAL) Hemogram (03/15/2020 4:11 AM EDT) Analysis Performed At Patho logist Time Signature WBC 9.6 (H) 4.0 - 9.5 [facility] x10(3)/[facility] LABORATORY RBC 4.02 (L) 4.58 - [facility] 5.54 [facility] x10(6)/[facility] LABORATORY Hemoglobin 12.2 (L) 13.7 - [facility] 16.5 gm/dL [facility] LAB[facility]ORY Hematocrit 34.7 (L) 40.5 - [facility] [place] 48.5 % [facility] LABORATORY MCV 86.3 82.9 - [facility] 93.1 [facility] LABORATORY MCH 30.3 27.5 - [facility] [place] 32.1 pg [facility]ORY MCHC 35.2 32.0 - [facility] [place] 35.7 gm/dL [facility]ORY Platelets 219 145 - 357 [facility] x10(3)/[facility] LABORATORY RDWSD 39.8 36.0 - [facility] 45.0 [facility] LABORATORY RDWCV 12.3 11.4 - [facility] [place] 13.8 % [facility] LABORATORY MPV 9.9 7.6 - 12.9 [facility] LABORATORY nRBC % Auto 0.0 % [facility] nRBC Abs Auto 0.000 0.000 - [facility] 0.000 [facility] x10(3)/[facility] LABORATORY Specimen Anatomical Collection Method Collection Time Receive d Time (Source) Location / / Volume Laterality Blood specimen 03/15/2020 4:11 AM 020 4:47 (specimen) EDT AM EDT Resulting Agency Comment Spec In Lab Tae Tyson MD HEMATOLOGY ORDERABLES Performing Organization Address City/State/ZIP Code Phon e Number [address] Triglyceride (03/15/2020 4:11 AM EDT) P athologist Signature Triglycerides 94 mg/dL [facility] Comment: Average Risk/Lower Risk: <150 mg/dL Borderline High Risk: 150-199 mg/dL High Risk: 200-499 mg/dL Very High Risk: >eo=184 mg/dL Specimen Anatomical Collection Method Collection Time Receive d Time (Source) Location / / Volume Laterality Blood specimen 03/15/2020 4:11 AM 020 4:47 (specimen) EDT AM EDT Resulting Agency Comment Spec In Lab Tenisha Moreland MD CHEMISTRY ORDERABLES Performing Organization Address City/State/[place] [address] HDL/Cholesterol Profile (03/15/2020 4:11 AM EDT) athologist Signature Chol, Total 79 mg/dL [facility] Comment: Lower Risk: <200 mg/dL Average Risk: 200-239 mg/dL Higher Risk: >kz=517 mg/dL HDL 38 mg/dL [facility] LABORATORY Comment: Males: ?? Higher Risk: <40 mg/dL Females: ?? HIgher Risk: <50 mg/dL Chol/HDL Ratio 2.1 ratio [facility] Chol/HDL Interpretation See Note [facility] LABORATORY Comment: Lipid management should be guided by a p atient? s ASCVD risk, goals and preferences. ACC/AHA Guidelines recommend high intens ity statin if clinical ASCVD or LDL greater than or equal to 190 mg/dL. http://Walk[employer].bluebottlebiz/AWZ-WDP-Rjxcysfrq Measure LDL if Total Cholesterol minus H DL Cholesterol is greater than 220 mg/dL. Adults aged 40-75 with LDL 70-189 mg/dL should have their 10 year ASCVD risk estimated with the ACC/AHA ASCVD risk es timator http://tools.acc.org/AYXJA-Kwub-Wqgyumsy r/ Statin should be discussed if risk great er than or equal to 7.5% in non-diabetics. With diabetes, moderate i ntensity statin is recommended if risk less than 7.5%, high intensity if risk g reater than or equal to 7.5%. Annual lipid monitoring on statins is no t necessary. Lifestyle modification is a critical com ponent of ASCVD risk reduction. Specimen Anatomical Collection Method Collection Time Receive d Time (Source) Location / / Volume Laterality Blood specimen 03/15/2020 4:11 AM 020 4:47 (specimen) EDT AM EDT Resulting Agency Comment Spec In Lab Tenisha Moreland MD CHEMISTRY ORDERABLES Performing Organization Address City/State/ZIP [place] [address] LDL Cholesterol, Direct (03/15/2020 4:11 AM EDT) athologist Signature LDL Chol 34 mg/dL [facility] LABORATORY Comment: Lowest Risk: <100 mg/dL Lower Risk: 100-129 mg/dL Borderline High Risk: 130-159 mg/dL High Risk: 160-189 mg/dL Very High Risk: >ig=502 mg/dL Specimen Anatomical Collection Method Collection Time Receive d Time (Source) Location / / Volume Laterality Blood specimen 03/15/2020 4:11 AM 020 4:47 (specimen) EDT AM EDT Resulting Agency Comment Spec In Lab Tenisha Moreland MD CHEMISTRY ORDERABLES Performing Organization Address City/State/ZIP Code Phon e Number [address] POCT Glucose (03/15/2020 1:14 AM EDT) athologist Signature POC Glucose 148 65 - 199 [place] [place] mg/dL [facility] LABOR[facility]ORY Comment: Supplemental ranges: <140 mg/dL before meals <180 mg/dL all other times of the day Specimen Anatomical Collection Method Collection Time Receive d Time (Source) Location / / Volume Laterality Blood specimen 03/15/2020 1:14 AM 020 1:14 (specimen) EDT AM EDT Tenisha Moreland MD POINT OF CARE TEST ORDERABLE S Performing Organization Address City/[facility]/ZIP Code Phon e Number [address] POCT Glucose (03/14/2020 8:48 PM EDT) athologist Signature POC Glucose 178 65 - 199 [place] [place] mg/dL [facility]ORY Comment: Supplemental ranges: <140 mg/dL before meals <180 mg/dL all other times of the day Specimen Anatomical Collection Method Collection Time Receive d Time (Source) Location / / Volume Laterality Blood specimen 03/14/2020 8:48 PM 020 8:48 (specimen) EDT PM EDT Tenisha Moreland MD POINT OF CARE TEST ORDERABLE S Performing Organization Address City/[facility]/ZIP Code Phon e Number [address] POCT Glucose (03/14/2020 5:53 PM EDT) athologist Signature POC Glucose 150 65 - 199 [place] [place] mg/dL [facility]ORY Comment: Supplemental ranges: <140 mg/dL before meals <180 mg/dL all other times of the day Specimen Anatomical Collection Method Collection Time Receive d Time (Source) Location / / Volume Laterality Blood specimen 03/14/2020 5:53 PM 020 5:53 (specimen) EDT PM EDT Tenisha Moreland MD POINT OF CARE TEST ORDERABLE S Performing Organization Address City/[facility]/ZIP Code Phon e Number [address] POCT Glucose (03/14/2020 4:36 PM EDT) P athologist Signature POC Glucose 164 65 - 199 [place] [place] mg/dL [facility]ORY Comment: Supplemental ranges: <140 mg/dL before meals <180 mg/dL all other times of the day Specimen Anatomical Collection Method Collection Time Receive d Time (Source) Location / / Volume Laterality Blood specimen 03/14/2020 4:36 PM 020 4:36 (specimen) EDT PM EDT Tenisha Moreland MD POINT OF CARE TEST ORDERABLE S Performing Organization Address City/[facility]/ZIP Code Phon e Number [address] POCT Glucose (03/14/2020 12:50 PM EDT) P athologist Signature POC Glucose 169 65 - 199 [place] [place] mg/dL [facility] Comment: Supplemental ranges: <140 mg/dL before meals <180 mg/dL all other times of the day Specimen Anatomical Collection Method Collection Time Receive d Time (Source) Location / / Volume Laterality Blood specimen 03/14/2020 12:50 0 (specimen) PM EDT 12:50 PM EDT Tenisha Moreland MD POINT OF CARE TEST ORDERABLE S Performing Organization Address City/[facility]/ZIP Code Phon e Number [address] (ABNORMAL) BLOOD GAS 2 ARTERIAL (03/14/2020 9:16 AM EDT) Analysis Performed At Patho logist Time Signature pH Art 7.43 7.35 - [facility] 7.45 [facility] LABORATORY pCO2 Art 34 (L) 35 - 45 [facility] LABORATORY pO2 Art 274 (H) 85 - 104 [facility] LABORATORY HCO3 Art 22.1 20.0 - [facility] 26.0 [facility] mmol/[facility] LABORATORY BE Art -2.3 -3.0 - 3.0 [facility] mmol/L [facility] LABORATORY Hgb Blood Gas 12.2 (L) 13.7 - [facility] 16.5 gm/dL [facility] LABORATORY O2HB Art 99.1 (H) 94.0 - [facility] 97.0 % [facility] LABORATORY COHB Art 0.0 % [facility] LABORATORY Comment: Nonsmokers: 0.5-1.5% COHB Smokers: Variable, but usually less than 10% Toxic: 20-30% COHB Lethal: Greater than 60% COHB METHB Art 0.3 <=1.5 % [facility] LABORATORY Na Whole Blood 133 (L) 135 - 145 mmol/L [facility] LABORATORY K Whole Blood 4.1 3.5 - 5.0 mmol/L [facility] LABORATORY Comment: Please note: Patients with WBC >100,000 may have falsely elevated Potassium levels. Contact the Clinical Chemistry L aboratory if there are any questions. ICa Whole Blood 1.16 1.15 - 1.33 mmol/L [facility] LABORATORY Comment: Note: ??Total bilirubin higher than 20 m g/dL may lead to falsely low ionized calcium. CL Whole Blood 103 98 - 107 mmol/L [facility] LABORATORY Gluc Whole Bld 175 65 - 199 mg/dL [facility] LABORAT[facility] Comment: Diabetes: >=200 mg/dL plus symp toms. Lactate WB 1.6 0.5 - 2.2 mmol/L [facility] LABORATORY Specimen Anatomical Collection Method Collection Time Receive d Time (Source) Location / / Volume Laterality Blood specimen 03/14/2020 9:16 AM 020 9:16 (specimen) EDT AM EDT Tenisha Moreland MD CHEMISTRY ORDERABLES Performing Organization Address City/State/ZIP [place] [address] (ABNORMAL) POCT Glucose (03/14/2020 7:16 AM EDT) P athologist Signature POC Glucose 213 (H) 65 - 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 Maximum daily dose of acetaminophen from all sources not to exceed 4,000 mg., Routine Given 03/16/2020 6:23 AM EDT 1,000 mg Given 03/15/2020 11:41 PM EDT 1,000 mg aspirin EC tablet 81 mg Given 03/16/2020 9:12 AM EDT 81 mg 81 mg, Oral, DAILY, First dose on Tue03/14/20 at 1430, Until Discontinued, Routine Given 03/15/2020 8:55 AM EDT 81 mg Given 03/14/2020 2:06 PM EDT 81 mg atorvastatin (Lipitor) tablet 40 mg Given 03/15/2020 4:13 PM EDT 40 mg 40 mg, Oral, EVERY EVENING, First dose on Tue03/14/20 at 1815, Until Discontinued, Routine Given 03/14/2020 6:15 PM EDT 40 mg clindamycin (CLEOCIN) 600mg in New Bag 03/15/2020 8:55 AM EDT 600 mg 150 mL/hr dextrose 5% 50mL 600 mg, Intravenous, EVERY 8 HOURS, 3 doses, First dose on Tue03/14/20 at 1700, Last dose on Tue03/15/20 at 0900, Administer over 20 Minutes, Indication for (Active or Suspected): Prophylaxis New Bag 03/15/2020 1:41 AM EDT 600 mg 150 mL/hr New Bag 03/14/2020 6:15 PM EDT 600 mg 150 mL/hr dextrose 10% infusion 250 mL, at 1,000 mL/hr, Intravenous, BENJAMIN RY 30 MIN PRN, Starting on Tue03/14/20 at 1325, Until Tue03/16/20 at 1612, For BG 50-70 mg/dL: Oral treatment preferred:?? If able to drink, give 120 mL Juice or R egular (not diet) soda OR If NPO, give 15 gram glucose 40% oral gel massaged into buccal mucosa OR if unconscious or uncooperative, give 25 gram (250 mL) Dex trose 10% IV over 15 minutes per protocol OR, if no IV access, 1 mg Glucagon IM. * * For BG less than 50 mg/dL: Oral treatment preferred:?? If able to drink, give 240 mL Juice or Regular (not diet) soda OR If NPO, give 30 gram glucose 40% oral gel m assaged in buccal mucosa OR if unconscious or uncooperative, give 25 gram (250 mL) Dextrose 10% I V over 15 minutes per protocol OR, if no IV access, 1 mg Glucagon IM. Rech yoav BG in 30 minutes. May repeat juice/soda, gel, dextrose or gluc agon once per episode. For persistent hypoglycemia, consider longer-acting treatment for the duration of the active insulin. glucagon (human recombinant) injection S olR 1 mg 1 mg, Intramuscular, EVERY 30 MIN PRN, S tarting on Tue03/14/20 at 1325, Until Tue03/16/20 at 1612, Low blood sugar, For BG 50-70 mg/d L: Oral treatment preferred:?? If able to drink, give 120 mL Juice or Regular (not diet) soda OR If NPO, give 15 gram glucose 40% oral gel massaged into b uccal mucosa OR if unconscious or uncooperative, give 25 gr am (250 mL) Dextrose 10% IV over 15 minutes per protocol OR, if no IV access, 1 mg G lucagon IM. For BG less than 50 mg/dL: Oral treatment preferred:?? If able to drink, give 240 mL Juice or Regular (not diet) soda OR If NPO, give 30 gram gluco se 40% oral gel massaged in buccal mucosa OR if unconscious or uncooperative, give 25 gram (250 mL) Dextrose 10% IV over 15 minutes per protocol OR, if no IV access, 1 mg Glucago n IM. Recheck BG in 30 minutes. May repeat juice/soda, gel, dex trose or glucagon once per episode. For persistent hypoglycemia, consider longer -acting treatment for the duration of the active insulin., Routine glucose (GLUTOSE) 40% oral geL 15-30 g, Buccal, EVERY 30 MIN PRN, Starting on 02/26 at 1325, Until 03/16/20 at 1612, Low blood sugar, For BG 50-70 mg/d L: Oral treatment preferred:?? If able to drink, give 120 mL Juice or Regular (not diet) soda OR If NPO, give 15 gram glucose 40% oral gel massaged into b uccal mucosa OR if unconscious or uncooperative, give 25 gr am (250 mL) Dextrose 10% IV over 15 minutes per protocol OR, if no IV access, 1 mg G lucagon IM. For BG less than 50 mg/dL: Oral treatment preferred:?? If able to drink, give 240 mL Juice or Regular (not diet) soda OR If NPO, give 30 gram gluco se 40% oral gel massaged in buccal mucosa OR if unconscious or uncooperative, give 25 gram (250 mL) Dextrose 10% IV over 15 minutes per protocol OR, if no IV access, 1 mg Glucago n IM. Recheck BG in 30 minutes. May repeat juice/soda, gel, dex trose or glucagon once per episode. For persistent hypoglycemia, consider longer -acting treatment for the duration of the active insulin. 1 tube contains 15 grams of glucose (n et weight of tube = 37.5 grams., Routine heparin (Porcine) subcutaneous injection Given 020 6:23 AM EDT 5,000 Units 5,000 Units 5,000 Units, Subcutaneous, EVERY 8 HOURS SCHEDULED, First dose on Tue03/14/20 at 2200, Until Discontinued, Routine Given 03/15/2020 9:34 PM EDT 5,000 Units Given 03/15/2020 2:55 PM EDT 5,000 Units HYDROmorphone (DILAUDID) injection 0.2-0 .4 mg Given 03/14/2020 1:33 PM EDT 0.4 mg 0.2-0.4 mg, Intravenous, EVERY 5 MIN PRN, Starting on Tue03/14/20 at 1223, Until Tue03/14/20 at 1709, Pain, Give 0.2 mg every 5 minutes PRN for mild to moderate pain (1-5) Give 0.4 mg every 5 minutes PRN for moderate to severe pain (6-10). Hold for respiratory rate less than 10 per minute. Maximum dose 4 mg over one hour. If multiple pain medications are ordered, start with hydromorphone or morphine and use fentanyl for breakthrough pain., PACU Recovery, Routine Given 03/14/2020 1:20 PM EDT 0.4 mg insulin lispro (HumaLOG) VIAL injection 1-5 Given 02/26 11:57 AM EDT 1 Units Units 1-5 Units, Subcutaneous, 4 TIMES DAILY BEFORE MEALS & NIGHTLY, First dose on Tue03/14/20 at 1630, Until Discontinued, CORRECTION BOLUS [1-4 Units] Sensitive Sliding Scale: Correction factor 40 (1 unit of insulin is expected to drop the glucose 40 mg/dL) BG 160 - 200 Give 1 unit BG 201 - 240 Give 2 units BG 241 - 280 Give 3 units BG greater than 280, give 4 units and recheck BG in 2 hours. - If recheck BG is LESS than 280, give no insulin and resume schedule - If recheck BG is GREATER than 280, give 4 units and repeat BG in 2 hours (no more than 3 times) & call for new insulin orders. DO NOT hold if NPO, unless specifically told to do so. Per Blood Glucose Monitoring Policy, re-check a BG of > 240 in 2 hours., Routine Given 03/15/2020 8:40 PM EDT 1 Units Given 03/15/2020 4:17 PM EDT 2 Units lactated ringers infusion New Bag 03/14/2020 7:45 AM EDT 1,000 mLs 100 mL/hr 1,000 mL, at 100 mL/hr, Intravenous, CONTINUOUS, Starting on Tue03/14/20 at 0800, Until Tue03/14/20 at 1325, Day of Surgery (Day of Procedure) lactated ringers infusion New Bag 03/14/2020 1:39 PM EDT 100 mL/hr 100 mL/hr 100 mL/hr, Intravenous, CONTINUOUS, Starting on Tue03/14/20 at 1345, Until 03/15/20 at 0144 lisinopriL (Prinivil;Zestril) tablet 20 mg Given 03/16/2020 9:12 AM EDT 20 mg 20 mg, Oral, DAILY, First dose on Tue03/15/20 at 0915, Until Discontinued, Routine Given 03/15/2020 9:00 AM EDT 20 mg ondansetron (ZOFRAN) injection 4-8 mg 4-8 mg, Intravenous, EVERY 8 HOURS PRN, Starting on Tue03/14/20 at 1720, Until 03/16/20 at 1612, Nausea, Start with 4mg and if ineffective in 30 minutes, give an additional 4mg If multiple antiemetic s are ordered, give ondansetron first. ondansetron (Zofran) tablet 4-8 mg 4-8 mg, Oral, EVERY 8 HOURS PRN, Startin g on Tue03/14/20 at 1720, Until 03/16/20 at 1612, Nausea, Vomiting, If multiple antiemetics are ordered, use ondansetron first. PO Preferred. If patient unable to take PO, may give IV if ordered. Start with 4mg and if ineffective in 45 minutes, give an add itional 4mg. If unable to take PO, may give IV., Routine oxyCODONE (Roxicodone) tablet 10-15 mg Given 03/15/2020 4:14 PM EDT 10 mg 10-15 mg, Oral, EVERY 4 HOURS PRN, Starting on Tue03/14/20 at 1325, Until 03/16/20 at 1612, Pain, severe pain (7-10), Initial dose 10mg. If pain control not adequate in 60 minutes, give additional 5mg, Routine oxyCODONE (Roxicodone) tablet 5-10 mg Given 03/16/2020 12:01 PM EDT 5 mg 5-10 mg, Oral, EVERY 4 HOURS PRN, Starting on Tue03/14/20 at 1325, Until Tue03/16/20 at 1612, Pain, moderate pain (4-6), Initial dose 5mg. If pain control not adequate in 60 minutes, give additional 5mg, Routine Given 03/14/2020 10:28 PM EDT 5 mg Given 03/14/2020 3:00 PM EDT 5 mg senna-docusate (Pericolace) 8.6-50 mg per Given 2019 9:12 AM EDT 2 tablets tablet 2 tablet 2 tablet, Oral, 2 TIMES DAILY, First dose on Tue03/14/20 at 2100, Until Discontinued, Routine Given 03/15/2020 8:55 AM EDT 2 tablets sodium chloride 0.9 % (flush) flush 5 mL Given 03/16/2020 9:15 AM EDT 5 mLs 5 mL, Intravenous, 2 TIMES DAILY, First dose on Tue03/14/20 at 2100, Until Discontinued, Routine Given 03/15/2020 8:41 PM EDT 5 mLs Given 03/15/2020 8:55 AM EDT 5 mLs documented in this encounter Active and Recently Administered Medications Times are shown in EDT. Scheduled Medication Order 03/14/2020 03/15/2020 03/16/2020 acetaminophen (Tylenol) tablet 1,000 mg 1407 (Given - Provider: Macy Rodriguez RN)2105 (Given - Provider: Rich Puente RN) 0000 (Not Given - Provider: Rich Puente RN - Reason: Order parameters not met)0558 (Given - Provider: Rich Puente RN)1131 (Given - Provider: Jenn Barksdale, JOEL)1725 (Given - Provider: Daisha Cope, JOEL) 0623 (Given - Provider: Sushila Mcmullen RN)1156 (Given - Provider: Ghulam Reis, JOEL) 1,000 mg, Oral, EVERY 6 HOURS SCHEDULED, First dose on Tue03/14/20 at 1430, Until Discontinued, Administer for temperature greater than or equal to 38.2 degrees celsius. Maximum daily dose of acetaminop 2341 (Given - Provider: Sushila Justice I, RN) hen from all sources not to exceed 4,000 mg., Routine aspirin EC tablet 81 mg 1406 (Given - Provider: Macy valentine, RN) 0855 (Given - Provider: Jenn Barksdale, JOEL) 0912 (Given - Provider: Ghulam Reis, JOEL) 81 mg, Oral, DAILY, First dose on Tue at 1430, Until Discontinued, Routine atorvastatin (Lipitor) tablet 40 mg 181 (Given - Prov ider: Janay Rodriguez, JOEL) 1613 (Given - Provider: Jenn Barksdale, JOEL) 40 mg, Oral, EVERY EVENING, First dose o n Tue03/14/20 at 1815, Until Discontinued, Routine clindamycin (CLEOCIN) 600mg in dextrose 5% 50mL (COMPL ETED) 181 (New Bag - Provider: Janay Rodriguez RN)1835 (Stopped - Provider: Rich Puente, JOEL) 0141 (New Bag - Provider: Rich Puente, JOEL)0201 (Stopped - Provider: Rich Puente, JOEL)0855 (New Bag - Provider: Jenn Barksdale RN)0915 (Stopped - Provider: Jenn Barksdale RN) 600 mg, Intravenous, EVERY 8 HOURS, 3 do ses, First dose on Tue03/14/20 at 1700, Last dose on Tue03/15/20 at 0900, Administer over 20 Minutes, Indication for (Active or Suspected): Prophylaxis clindamycin (CLEOCIN) 900mg in dextrose 5% 50mL (COMPL ETED) 0918 (Given - Provider: Ramses Calvillo CRNA) 900 mg, Intravenous, ONCE, 1 dose, Tue at 0800, Administer over 30 Minutes, Give over 30-60 minutes. Do not exceed 30mg/minute. Redose every 6 hours if CrCl is greater than 20. Redose every 6 ho urs if CrCl is less than 20., Day of Akosua jose carlos (Day of Procedure), Indication for (Active or Suspected): Prophylaxis heparin (Porcine) subcutaneous injection 5,000 Units 2 105 (Given - Provider: Rich Puente RN) 0558 (Given - Provider: Rich curry RN)1455 (Given - Provider: Jenn Barksdale RN)2134 (Given - Provider: Sushila Mcmullen RN) 0623 (Given - Provider: Sushila Mmcullen RN)1400 (Due) 5,000 Units, Subcutaneous, EVERY 8 HOURS SCHEDULED, First dose on Tue03/14/20 at 2200, Until Discontinued, Routine insulin lispro (HumaLOG) VIAL injection 1-5 Units(Link ed Group 1) 1630 (Not Given - Provider: Janay Rodriguez RN - Reason: Order parameters not met)2100 (Not Given - Provider: Rich Puente RN - Reason: Patient/family refused) 0811 (Not Given - Provider: Jenn Barksdale RN - Reason: Order parameters not met)1137 (Given - Provider: Jenn Barksdale RN)1617 (Given - Provider: Jenn Barksdale RN)2040 (Given - Provider: Sushila Mcmullen RN - Comment: bg 193) 0730 (Not Given - Provider: Ghulam bush RN - Reason: Order parameters not met - Comment: bs 150)1157 (Given - Provider: Ghulam Reis RN - Comment: bs 175) 1-5 Units, Subcutaneous, 4 TIMES DAILY B EFORE MEALS & NIGHTLY, First dose on Tue03/14/20 at 1630, Until Discontinued, CORRECTION BOLUS [1-4 Units] Sensitive Sliding Scale: Correction factor 40 ( 1 unit of insulin is expected to drop th e glucose 40 mg/dL) BG 160 - 200 Give 1 unit BG 201 - 240 Give 2 units BG 241 - 280 Give 3 units BG greater than 280, give 4 units and recheck BG in 2 hours. - If recheck BG is LESS than 280, give no in sulin and resume schedule - If recheck BG is GREATER than 280, give 4 units and repeat BG in 2 hours (no more than 3 times) & call for new insulin orders. DO NOT hold if NPO, unless specifically jordi d to do so. Per Blood Glucose Monitoring Policy, re-check a BG of > 240 in 2 hours., Routine lisinopriL (Prinivil;Zestril) tablet 20 mg 0900 (Given - Provider: Jenn Barksdale, JOEL) 0912 (Given - Provider: Ghulam cardozo, JEOL) 20 mg, Oral, DAILY, First dose on Tue at 0915, Until Discontinued, Routine senna-docusate (Pericolace) 8.6-50 mg per tablet 2 tab let 2100 (Not Given - Provider: Rich Puente RN - Reason: Patient/family refused) 0855 (Given - Provider: Jenn Barksdale RN)2100 (Not Given - Provider: Sushila Justice I, JOEL - Reason: Patient/family refused) 0912 (Given - Provider: Ghulma Reis, JOEL) 2 tablet, Oral, 2 TIMES DAILY, First dos e on Tue03/14/20 at 2100, Until Discontinued, Routine sodium chloride 0.9 % (flush) flush 5 mL 2105 (Given - Provider: Rich Puente RN) 0855 (Given - Provider: Jenn Barksdale RN)2040 (Given - Provider: Sushila Mcmullen RN) 0915 (Given - Provider: Ghulam cardozo RN) 5 mL, Intravenous, 2 TIMES DAILY, First dose on Tue03/14/20 at 2100, Until Discontinued, Routine Continuous Medication Order 03/14/2020 03/15/2020 03/16/2020 lactated ringers infusion (CANCELED) 0745 (New Bag - P rovider: Rina Mccord RN)1219 (Stopped - Provider: Ramses Calvillo CRNA) 1,000 mL, at 100 mL/hr, Intravenous, CON TINUOUS, Starting Tue03/14/20 at 0800, Until Tue03/14/20 at 1325, Day of Surgery (Day of Procedure) lactated ringers infusion () 1339 (New Bag - Pr ovider: Dilcia Magdaleno RN) 100 mL/hr, at 100 mL/hr, Intravenous, CO NTINUOUS, Starting Tue03/14/20 at 1345, Until 03/15/20 at 0144 PRN Medication Order 03/14/2020 03/15/2020 03/16/2020 cellulose (fibrillar), oxidized (SURGICEL) 2 x 4 pad (CANCELED) 0947 (Given - Provider: Tenisha Moreland MD - Comment: 3 pieces of gelfoam covered in surgicel to make munchies on back table to be used as needed for hemostasis.) ONCE PRN, Starting Tue03/14/20 at 0947, Until Tue03/16/20 at 1612, Intra- Operative (Intra-Procedure), Routine dextrose 10% infusion(Linked Group 2) 250 mL, at 1,000 mL/hr, Intravenous, BENJAMIN RY 30 MIN PRN, Starting Tue03/14/20 at 1325, Until Tue03/16/20 at 1612, For BG 50-70 mg/dL: Oral treatment preferred:?? If able to drink, give 120 mL Juice or Regular (not diet) soda OR If NPO, give 15 gram glucose 40% oral gel massaged into buccal mucosa OR if unconscious or uncooperative, give 25 gram (250 mL) Dextrose 10% IV over 15 minutes per protocol OR , if no IV access, 1 mg Glucagon IM. For BG less than 50 mg/dL: Oral treatment preferred:?? If able to drink, give 240 mL Juice or Regular (not diet) soda OR If NPO, give 30 gram glucose 40% oral gel massaged in buccal mucosa OR if unconsc ious or uncooperative, give 25 gram (250 mL) Dextrose 10% IV over 15 minutes per protocol OR, if no IV access, 1 mg Glucagon IM. Recheck BG in 30 minutes. May r epeat juice/soda, gel, dextrose or gluca elli once per episode. For persistent hypoglycemia, consider longer-acting treatment for the duration of the active insulin. gelatin adsorbable (GELFOAM) sponge (CANCELED) 0946 (G iven - Provider: Tenisha Moreland MD - Comment: 3 pieces of gelfoam covered in surgicel to make munchies on back table to be used as needed for hemostasis.) ONCE PRN, Starting Tue03/14/20 at 0946, Until Tue03/16/20 at 1612, Intra- Operative (Intra-Procedure) glucagon (human recombinant) injection SolR 1 mg(Linked Group 2) 1 mg, Intramuscular, EVERY 30 MIN PRN, S tarting Tue03/14/20 at 1325, Until 03/16/20 at 1612, Low blood sugar, For BG 50-70 mg/dL: Oral treatment preferred:?? If able to drink, give 120 mL Juice or Regular (not diet) soda OR If NPO, give 15 gram glucose 40% oral gel massaged into buccal mucosa OR if unconscious or uncooperative, give 25 gram (250 mL) Dextrose 10% IV over 15 minutes per protocol O R, if no IV access, 1 mg Glucagon IM. For BG less than 50 mg/dL: Oral treatment preferred:?? If able to drink, give 240 mL Juice or Regular (not diet) soda OR If NPO, give 30 gram glucose 40% oral ge l massaged in buccal mucosa OR if uncons cious or uncooperative, give 25 gram (250 mL) Dextrose 10% IV over 15 minutes per protocol OR, if no IV access, 1 mg Glucagon IM. Recheck BG in 30 minutes. May repeat juice/soda, gel, dextrose or gluc agon once per episode. For persistent hypoglycemia, consider longer-acting treatment for the duration of the active insulin., Routine glucose (GLUTOSE) 40% oral geL(Linked Group 2) 15-30 g, Buccal, EVERY 30 MIN PRN, Start ing Tue03/14/20 at 1325, Until Tue03/16/20 at 1612, Low blood sugar, For BG 50-70 mg/dL: Oral treatment preferred:?? If able to drink, give 120 mL Juice or Reg ular (not diet) soda OR If NPO, give 15 gram glucose 40% oral gel massaged into buccal mucosa OR if unconscious or uncooperative, give 25 gram (250 mL) Dextrose 10% IV over 15 minutes per protocol OR, i f no IV access, 1 mg Glucagon IM. For BG less than 50 mg/dL: Oral treatment preferred:?? If able to drink, give 240 mL Juice or Regular (not diet) soda OR If NPO, give 30 gram glucose 40% oral gel ma ssaged in buccal mucosa OR if unconsciou s or uncooperative, give 25 gram (250 mL) Dextrose 10% IV over 15 minutes per protocol OR, if no IV access, 1 mg Glucagon IM. Recheck BG in 30 minutes. May repe at juice/soda, gel, dextrose or glucagon once per episode. For persistent hypoglycemia, consider longer-acting treatment for the duration of the active insulin. 1 tube contains 15 grams of glucose (net weight of tube = 37.5 grams., Routine hydrALAZINE (APRESOLINE) injection 10 mg 10 mg, Intravenous, EVERY 4 HOURS PRN, S tarting Tue03/14/20 at 1325, Until Tue03/16/20 at 1612, High Blood Pressure, PRN SBP>160 if HR<60 or labetalol already given., Routine HYDROmorphone (DILAUDID) injection 0.2-0.4 mg (CANCELE D) 1320 (Given - Provider: Dilcia Magdaleno, RN)1333 (Given - Provider: Dilcia Magdaleno RN) 0.2-0.4 mg, Intravenous, EVERY 5 MIN PRN , Starting Tue03/14/20 at 1223, Until Tue03/14/20 at 1709, Pain, Give 0.2 mg every 5 minutes PRN for mild to moderate pain (1-5) Give 0.4 mg every 5 minutes PRN f or moderate to severe pain (6-10). Hold for respiratory rate less than 10 per minute. Maximum dose 4 mg over one hour. If multiple pain medications are ordered, start with hydromorphone or morphine and use fentanyl for breakthrough pain., PACU Recovery, Routine labetalol (NORMODYNE,TRANDATE) injection 10 mg 10 mg, Intravenous, EVERY 2 HOURS PRN, S tarting Tue03/14/20 at 1325, Until Tue03/16/20 at 1612, High Blood Pressure, SBP>160 if HR>60., Routine lidocaine (XYLOCAINE) 10 mg/mL (1 %) injection 3 mg 3 mg (0.3 mL), Subcutaneous, ONCE PRN, 1 dose, Starting Tue03/14/20 at 1720, Until Tue03/16/20 at 1612, for discomfort with PIV insertion, Routine ondansetron (ZOFRAN) injection 4-8 mg(Linked Group 3) 4-8 mg, Intravenous, EVERY 8 HOURS PRN, Starting Tue03/14/20 at 1720, Until Tue03/16/20 at 1612, Nausea, Start with 4mg and if ineffective in 30 minutes, give an additional 4mg If multiple antiemetics are ordered, give ondansetron first. ondansetron (Zofran) tablet 4-8 mg(Linked Group 3) 4-8 mg, Oral, EVERY 8 HOURS PRN, Startin g Tue03/14/20 at 1720, Until 03/16/20 at 1612, Nausea, Vomiting, If multiple antiemetics are ordered, use ondansetron first. PO Preferred. If patient unabl e to take PO, may give IV if ordered. St art with 4mg and if ineffective in 45 minutes, give an additional 4mg. If unable to take PO, may give IV., Routine oxyCODONE (Roxicodone) tablet 10-15 mg(Linked Group 4) 1500 (See Alternative - Provider: Macy Rodriguez RN)2228 (See Alternative - Provider: Rich Puente, JOEL) 1614 (Given - Provider: Jenn Barksdale, JOEL) 1201 (See Alternative - Provider: Ghulam Reis, JOEL) 10-15 mg, Oral, EVERY 4 HOURS PRN, Start ing Tue03/14/20 at 1325, Until 03/16/20 at 1612, Pain, severe pain (7-10), Initial dose 10mg. If pain control not adequate in 60 minutes, give additional 5mg, Routine oxyCODONE (Roxicodone) tablet 5-10 mg(Linked Group 4) 1500 (Given - Provider: Macy Rodriguez RN)2228 (Given - Provider: Rich Puente, JOEL) 1614 (See Alternative - Provider: Jenn Barksdale, JOEL) 1201 (Given - Provider: Ghulam Reis, JOEL) 5-10 mg, Oral, EVERY 4 HOURS PRN, Starti ng Tue03/14/20 at 1325, Until 03/16/20 at 1612, Pain, moderate pain (4-6), Initial dose 5mg. If pain control not adequate in 60 minutes, give additional 5mg, Routine sodium chloride 0.9 % (flush) flush 5-20 mL 5-20 mL, Intravenous, EVERY 1 MIN PRN, S tarting Tue03/14/20 at 1720, Until 03/16/20 at 1612, flush, Flush pertains to all indwelling lines. Flush per protocol found in the job aid using the link provided on this medication record., Routine Linked Groups Order Group 1: POCT Fingerstick Glucose (CANCELED) Routine, 4 TIMES DAILY BEFORE MEALS & AT BEDTIME, First occurrence on Tue03/14/20 at 1700, Until Specified
Consider choosing FOUR TIMES A DAY BEFORE MEALS AND AT BEDTIME as frequency fo r: Patients who have good hypoglycemia a wareness: -Patients who are eating meals during the day and sleeping at night -Patient who are otherwise stable And insulin lispro (HumaLOG) VIAL injection 1-5 UnitsJump to med 1-5 Units, Subcutaneous, 4 TIMES DAILY B EFORE MEALS & NIGHTLY, First dose on Tue03/14/20 at 1630, Until Discontinued
CORRECTION BOLUS [1-4 Units] Sensitive Sliding Scale: C orrection factor 40 (1 unit of insulin i s expected to drop the glucose 40 mg/dL) BG 160 - 200 Give 1 unit BG 201 - 240 Give 2 units BG 241 - 280 Give 3 units &am p;nbsp;BG greater than 280, give 4 units and recheck BG in 2 hours. - If recheck BG is LESS than 280, give no insulin and resume schedule - If recheck BG is GREATER than 280, give 4 u nits and repeat BG in 2 hours (no more t chavira 3 times) & call for new insulin orders. DO NOT hold if NPO, unless specifically told to do so. &nb sp; Per Blood Glucose Monitor ing Policy, re-check a BG of > 240 in 2 hours.
Routine Group 2: glucose (GLUTOSE) 40% oral geLJump to med 15-30 g, Buccal, EVERY 30 MIN PRN, Start ing Tue03/14/20 at 1325, Until 03/16/20 at 1612, Low blood sugar
For BG 50-70 mg/dL: Oral treatment preferred:?? If able to drink, give 120 mL Juic e or Regular (not diet) soda OR If NPO, give 15 gram glucose 40% oral gel massaged into buccal mucosa OR if unconscious or uncooperative, give 25 gram (250 mL) Dextrose 10% IV over 15 minutes per protoc ol OR, if no IV access, 1 mg Glucagon IM . For BG less than 50 mg/dL: Oral treatment preferred:?? If able to drink, give 240 mL Juice or Regular (not diet) soda OR If NPO, give 30 gram gluco se 40% oral gel massaged in buccal mucos a OR if unconscious or uncooperative, give 25 gram (250 mL) Dextrose 10% IV over 15 minutes per protocol OR, if no IV access, 1 mg Glucagon IM. Recheck BG in 30 minutes. May repeat juice/soda , gel, dextrose or glucagon once per episode. For persistent hypoglycemia, consider longer-acting treatment for the duration of the active insulin. 1 tube contains 15 grams o f glucose (net weight of tube = 37.5 grams.
Routine Or dextrose 10% infusionJump to med 250 mL, at 1,000 mL/hr, Intravenous, BENJAMIN RY 30 MIN PRN, Starting Tue03/14/20 at 1325, Until Tue03/16/20 at 1612
For BG 50-70 mg/dL: Oral treatment preferred:?? If able to drink, give 120 mL J uice or Regular (not diet) soda OR If AWS SOFTWARE DEVELOPMENT ENGINEER O, give 15 gram glucose 40% oral gel massaged into buccal mucosa OR if unconscious or uncooperative, give 25 gram (250 mL) Dextrose 10% IV over 15 minutes per pro tocol OR, if no IV access, 1 mg Glucagon IM. For BG less than 50 mg/dL: Oral treatment preferred:?? If able to drink, give 240 mL Juice or Regular (not diet) soda OR If NPO, give 30 gram gl ucose 40% oral gel massaged in buccal mu cosa OR if unconscious or uncooperative, give 25 gram (250 mL) Dextrose 10% IV over 15 minutes per protocol OR, if no IV access, 1 mg Glucagon IM. Rech yoav BG in 30 minutes. May repeat juice/s dora, gel, dextrose or glucagon once per episode. For persistent hypoglycemia, consider longer-acting treatment for the duration of the active insulin.
Or glucagon (human recombinant) injection SolR 1 mgJump to med 1 mg, Intramuscular, EVERY 30 MIN PRN, S tarting Tue03/14/20 at 1325, Until 03/16/20 at 1612, Low blood sugar
For BG 50-70 mg/dL: Oral treatment preferred:?? If able to drink, give 120 mL Juice or Regular (not diet) soda OR If N PO, give 15 gram glucose 40% oral gel massaged into buccal mucosa OR if unconscious or uncooperative, give 25 gram (250 mL) Dextrose 10% IV over 15 minutes per pr otocol OR, if no IV access, 1 mg Glucago n IM. For BG less than 50 mg/dL: Oral treatment preferred:?? If able to drink, give 240 mL Juice or Regular (not diet) soda OR If NPO, give 30 gram g lucose 40% oral gel massaged in buccal m ucosa OR if unconscious or uncooperative, give 25 gram (250 mL) Dextrose 10% IV over 15 minutes per protocol OR, if no IV access, 1 mg Glucagon IM. Rec heck BG in 30 minutes. May repeat juice/ soda, gel, dextrose or glucagon once per episode. For persistent hypoglycemia, consider longer-acting treatment for the duration of the active insulin.
Routine Group 3: ondansetron (Zofran) tablet 4-8 mgJump to med 4-8 mg, Oral, EVERY 8 HOURS PRN, Startin g Tue03/14/20 at 1720, Until 03/16/20 at 1612, Nausea, Vomiting
If multiple antiemetics are ordered, use ondansetron first. PO Preferred . If patient unable to take PO, may give IV if ordered. Start with 4mg and if ineffective in 45 minutes, give an additional 4mg. If unable to take PO, may give IV.
Routine Or ondansetron (ZOFRAN) injection 4-8 mgJump to med 4-8 mg, Intravenous, EVERY 8 HOURS PRN, Starting Tue03/14/20 at 1720, Until 03/16/20 at 1612, Nausea
Start with 4mg and if ineffective in 30 minutes, give an additional 4mg If mu ltiple antiemetics are ordered, give ond ansetron first.
Group 4: oxyCODONE (Roxicodone) tablet 5-10 mgJump to med 5-10 mg, Oral, EVERY 4 HOURS PRN, Starti ng Tue03/14/20 at 1325, Until 03/16/20 at 1612, Pain, moderate pain (4-6)
Initial dose 5mg. If pain control not adequate in 60 minutes, give additional 5mg
Routine Or oxyCODONE (Roxicodone) tablet 10-15 mgJump to med 10-15 mg, Oral, EVERY 4 HOURS PRN, Start ing Tue03/14/20 at 1325, Until Tue03/16/20 at 1612, Pain, severe pain (7-10)
Initial dose 10mg. If pain control not adequate in 60 minutes, give additional 5mg
Routine documented in this encounter Care Teams Decorating Instructor Relationship Specialty Start Date End Date Ilsa Smith MD PCP - General Family Medicine 03/05/[address] [place] [address] documented as of this encounter
--- OUTSIDE RECORDS SUMMARY | 2022-04-30 02:09 | XMS_ITS | Encounter Summary ---
:1975 Author Organization [facility] [place] [address] Care Team Providers Name Role Phone Ilsa Smith MD Primary Care Provider Encounter Details Date Type Department Care Team Description 12/04/2020 Orders Only Vascular Surgery at [facility] Gavi Guzman, [place] [address] Social History Tobacco Use Types Packs/Day [...] on filedocumented in this encounter Care Teams Business Development Professional Relationship Specialty Start Date End Date Ilsa Smith MD PCP - General Family Medicine 03/05/[address] [place] [address] documented as of this encounter
--- OUTSIDE RECORDS SUMMARY | 2022-04-30 02:09 | XMS_ITS | Encounter Summary ---
:1975 [place] [address] Care Team Providers Name Role Phone Ilsa Smith MD Primary Care Provider Encounter Details Date Type Department Care Team Description 03/17/2020 Notes Only Vascular Surgery at [facility] Mariama Barreto, LEONARD [facility] [place] [address] VASCULAR SURGERY [phone] [place], [place] [address] (Wo rk) Social History Tobacco Use Types Packs/Day Years Used Date Never Smoker 0 0 Smokeless Tobacco: Never Used Alcohol Use Standard Drinks/Week Comments Yes 14 (1 standard drink = 0.6 oz pure alcoh ol) Sex Assigned at Date Recorded Not on file documented as of this encounter Progress Notes Mariama Barreto, RN - 03/17/2020 12:45 PM EDT PT and call to discuss two issues. Pt is s/p 03/14 L femoral endart, d/c'd from hospital 03/16. Pt had slight rash to B posterior thigh following surgery Rash is somewhat itchy, back itches however no rash present. Pt has h/o contact dermatitis with adhesive in past. Rashed area is now becoming hardened. No drainage present, no surrounding erythema. Pt will try PO Benadryl x1-2days and will callif rash worsens. Pt's left groin incision has clear/bloody drainage to proximal end. Pt is using betadine paint daily. Incision is being covered with gauze/tape and pt changes gauze several times daily. Drainage is minimal when lying, increases with ambulation. Pt denies surrounding warmth, erythema or swelling. Pt denies any cloudy, yellow, white or brown drainage. Pt will continue to monitor and call with changes or s/sx of infection. documented in this encounter Plan of Treatment Not on filedocumented as of this encounter Visit Diagnoses Not on filedocumented in this encounter Care Teams Deodorizer Operator Relationship Specialty Start Date End Date Ilsa Smith MD PCP - General Family Medicine 03/05/[address] [place] [address] documented as of this encounter
--- OUTSIDE RECORDS SUMMARY | 2022-04-30 02:09 | XMS_ITS | Encounter Summary ---
:1975 [place] [address] Care Team Providers Name Role Phone Ilsa Smith MD Primary Care Provider Reason for Visit Auth/Cert Specialty Diagnoses / Procedures Referred By Contact Refer red To Contact Diagnoses Left leg CLI Procedures PRO THROMBOENDARTECTMY FEMORAL COMMON @ENDARTERECTOMY, COMMON FEMORAL W OR W/O PATCH GRAFT (WRVU 15.31) Referral ID Status Reason Start Date Expiration Date Visits Requ ested Visits Authorized [id number] 1 1 Encounter Details Date Type Department Care Team Description 03/14/2020 Anesthesia Event Main Operating Room Belkys Melgar MD [facility] [place] [address] [place] [address] [phone] Anesthesia Record Procedure Summary Procedure Name Responsible Anesthesia Start Anesthesia Stop Anesthesiologist Time Time @ENDARTERECTOMYCollin Cantwell, MD 03/14/20 0829 03/14/20 12 46 ILIOFEMORAL W OR W/O PATCH GRAFT (WRVU 19.86) (Left Groin) Events Date Time Event Comment 03/14/2020 0819 0829 AN Verify 0829 Start 0832 An Start Data 0840 An Induction 0843 An Intubation 0850 Anesthesia Ready 0916 ABG Data Arterial Blood G as result: pH 7.42 pCO2 34.4 pO2 273.5 %O2 Sa t 100 FiO2 0.5 HCO3 22.1 BE -2.3 Hb 12.2 K 4 .06 Glucose 175 Lactate 1.56 0934 Skin Incision 0937 Break/Relief In I assumed care f or Break Relief before which we: 1. Identifie d the patient 2. Identified the responsible provider(s) 3. Reviewed the pertinent medica l history 4. Discussed the surgical plan an d course 5. Reviewed intra-op anesthesia manag ement and issues during anesthesia 6. Se t expectations for the relief (and/or post-pro cedure) period 7. Allowed opportunity for questions and acknowledgement of understanding Gabriel Brasher, REPAIR SUPERVISOR 1037 Heparin 1135 Protamine 1230 Extubation/LMA Out 1236 an stop data 1246 Recovery or ICU Handoff Patient care was transferred to the destination unit staff after review of the patient's medica l history, current anesthetic/surgi toby status and plan, according to the Provider Handoff Checklist. 1246 Stop Name Total Midazolam 2 mg fentaNYL 100 mcg IV Lidocaine 60 mg Propofol 200 mg Rocuronium 120 mg Ondansetron 8 mg Neostigmine 3 mg Glycopyrrolate 0.4 mg clindamycin (CLEOCIN) 900mg in dextrose 5% 50mL 900 mg PHENYLephrine INF 300 mcg Heparin 9,000 Units HYDROmorphone 2 mg Protamine 30 mg lactated ringers infusion 800 mL Lactated Ringers 600 mL Agents Name O2 Air N2O Sevoflurane (et) Blood No blood administrations on file. Lines, Drains, and Airways Type Details Placement Removal PIV 03/14/20; 0730; cephalic 03/14/20 0730 by Flex, 0 03/16/20 1308 by vein (lateral side of JOEL Johnson M ichele L, arm), left; RN [id number] catheter system; 18 gauge; Rina Mccord RN; intradermal injection, distraction, tolerated well; 0; no longer indicated; 03/16/20; 1308 ETT Mask Ventilation: Not 03/14/20 0848 by 03/14/20 1230 by Attempted (0); ETT Type: Ramses Calvillo, Ramses Walker, Cuffed, Oral; ETT Size: MELY REPAIR SUPERVISOR 7.5 mm; Weiner Blade: 2; Notes: Asleep, Pre-O2, Stylette; Attempts: 1; Laryngoscopy Grade: 1; ETT Placement Verified By: Capnometry, Visual; Secured at Teeth: 22 cm; Inserted by: C. Collin PIV 03/14/20; 0850; 03/14/20 0850 by 03/16/20 1308 b y metacarpal vein (top of Ramses Calvillo, Kavon gates, Ghulam Suggs, hand), right; MELY MALDONADO [id number] catheter system; 16 gauge; 0; no longer indicated; 03/16/20; 1308 Arterial Line 03/14/20; 0850; radial 03/14/20 0850 by 03/14/20 1537 by artery, right; 20 gauge; Ramses Calvillo, Macy Kiser, Rajinder; Sterile Prep, MELY MALDONADO Sterile Gloves; no longer indicated; 03/14/20; 1537 Urethral Catheter 03/14/20; 0850; Surgery 03/14/20 0850 by 03/15 0909 by longer than 2 hours, Debbie Robins, Sera Carranza RN Physician order; indwelling double lumen catheter; latex, hydrophilic coated; 14; inserted at this facility; 1; 5; 10; other (see comments) (GA); drainage bag to dependent drainage; 03/15/20; 0909 Incision 03/14/20; 0935; groin; 03/14/20 0935 by 04/26/22 1715 by 04/26/22 (LDA cleanup Debbie Robins, Carissa Cole utility [id number]); 1715 (LDA cleanup utility RA#[id number]) documented in this encounter Social History Tobacco Use Types Packs/Day Years Used Date Never Smoker 0 0 Smokeless Tobacco: Never Used Alcohol Use Standard Drinks/Week Comments Yes 14 (1 standard drink = 0.6 oz pure alcoh ol) Sex Assigned at Date Recorded Not on file documented as of this encounter OR Notes Anesthesia Postprocedure Evaluation - Belkys Polanco - 03/14/2020 3:39 PM EDT Department of Anesthesiology Post-procedure Note Patient: Sameer Krishnan Procedure Summary Date: 03/14/20 Room / Location: [facility] OR [address] [place] [address] MAIN OR Anesthesia Start: 828 Anesthesia Stop: 124 Procedure: @ENDARTERECTOMY, COMMON FEMORAL W OR W/O PATCH GRAFT (WRVU 15.31) (Left Groin) Diagnosis: (Left leg CLI) Surgeon: Byron Moreland MD Responsible Provider: Belkys Polanco MD Anesthesia Type: general ASA Status: 3 All Anesthesia Providers: Anesthesiologist: Belkys Polanco MD REPAIR SUPERVISOR: Ramses Calvillo, REPAIR SUPERVISOR Vitals Value Taken Time BP 143/77 03/14/2020 3:00 PM Temp 36.5 ??C (97.7 ??F) 03/14/2020 3:00 PM Pulse 68 03/14/2020 3:37 PM Resp 17 03/14/2020 3:37 PM SpO2 99 % 03/14/2020 3:37 PM Pain Level 4 03/14/2020 3:00 PM Vitals shown include unvalidated device data. Patient Location: PACU/[facility] Level of Consciousness: Awake and Alert Pain Management: Satisfactory Analgesia PONV: None Cardiovascular Status: At Baseline Respiratory Status: At Baseline Postoperative Fluid Status: Intravascular EUvolemia Possible Anesthetic Complications: NONE apparent at time of evaluation Final Primary Anesthesia Type: General (The anesthetic type performed was the same as planned.) Comments: Anesthesia Preprocedure Evaluation - Belkys Polanco - 03/14/2020 8:18 AM EDT Pre-Anesthesia Evaluation for: Sameer Krishnan a 44 y.o. male. Procedure(s): @ENDARTERECTOMY, COMMON FEMORAL W OR W/O PATCH GRAFT (WRVU 15.31) Patient Active Problem List Diagnosis ??? Psoriasis ??? Dermatitis, contact Past Medical History: Diagnosis Date ??? 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 Diabetes type 2 ??? High blood pressure on medication ??? Status post chemotherapy 25 years ago ??? Status post radiation therapy ??? Transfusion history around 25 years ago, with cancer treatment No past surgical history on file. Social History Tobacco Use ??? Smoking status: Never Smoker ??? Smokeless tobacco: Never Used Substance Use Topics ??? Alcohol use: Yes Alcohol/week: 14.0 standard drinks Types: 6 Cans of beer, 8 Standard drinks or equivalent per week Social History Substance and Sexual Activity Drug Use Never Allergies Allergen Reactions ??? Bandage [Adhesive Bandage] Rash ??? Shellfish Derived Severe N/V ??? Pcn [Penicillins] CIS - Hives Medications: MAR and/or home medications have been reviewed. Physical Exam: Most Recent Vitals: 03/14/20 0720 BP: 180/75 Pulse: 82 Resp: 20 Temp: 36.5 ??C (97.7 ??F) SpO2: 100% Body mass index is 27.53 kg/m??. Height: 177.8 cm (5' 10) Weight: 87 kg (191 lb 14.4 oz) Airway Assessment: Mallampati: II TM distance: >3 FB Neck ROM: full Cardiovascular Assessment: Rate: normal Pulmonary Assessment: PE comment: O2 Sats normal Dental Assessment: - normal exam Misc Assessment: IV access: Peripheral line Anesthesia Plan: ASA 3 general, with a(n) intravenous induction DM: oral agent only PVD No known issues with prior anesthetic Labs reviewed (K 5) Informed Consent: Anesthetic plan and risks discussed with patient. Plan discussed with REPAIR SUPERVISOR. PAT Clinic Note documented in this encounter Plan of Treatment Not on filedocumented as of this encounter Visit Diagnoses Not on filedocumented in this encounter Administered Medications Inactive Administered Medications - up to 3 most recent administrations Medication Order MAR Action Action Date Dose Rate Site clindamycin (CLEOCIN) 900mg in Given 03/14/2020 9:18 AM EDT 900 mg dextrose 5% 50mL 900 mg, Intravenous, ONCE, 1 dose, On Tue03/14/20 at 0800, Administer over 30 Minutes, Give over 30-60 minutes. Do not exceed 30mg/minute. Redose every 6 hours if CrCl is greater than 20. Redose every 6 hours if CrCl is less than 20., Day of Surgery (Day of Procedure), Indication for (Active or Suspected): Prophylaxis fentaNYL 50 mcg/mL multi-dose injection Given 03/14/2020 8:39 AM EDT 100 mcg PRN, Starting on Tue03/14/20 at 0839, Until Tue03/14/20 at 1248, Anesthesia Intra-op, Routine glycopyrrolate (ROBINUL) multi-dose Given 03/14/2020 12:22 PM ED T 0.4 mg injection PRN, Starting on Tue03/14/20 at 1222, Until Tue03/14/20 at 1248, Anesthesia Intra-op, Routine heparin (porcine) 1,000 unit/mL Given 03/14/2020 11:20 AM EDT 1, 000 Units injection PRN, Starting on Tue03/14/20 at 1037, Until Tue03/14/20 at 1248, Anesthesia Intra-op, Routine Given 03/14/2020 10:37 AM EDT 8,000 Units HYDROmorphone (DILAUDID) injection Given 03/14/2020 12:21 PM EDT 0.6 mg PRN, Starting on Tue03/14/20 at 1045, Until Tue03/14/20 at 1248, Anesthesia Intra-op, Routine Given 03/14/2020 12:17 PM EDT 0.4 mg Given 03/14/2020 12:10 PM EDT 0.4 mg lactated ringers infusion New Bag 03/14/2020 8:50 AM EDT CONTINUOUS PRN, Starting on Tue03/14/20 at 0850, Until Tue03/14/20 at 1248, Anesthesia Intra-op lidocaine (PF) (XYLOCAINE) 100 mg/5 mL (2 %) Given 0 8:39 AM EDT 60 mg injection PRN, Starting on Tue03/14/20 at 0839, Until Tue03/14/20 at 1248, Anesthesia Intra-op, Routine midazolam (PF) (VERSED) multi-dose injec tion Given 03/14/2020 8:29 AM EDT 2 mg PRN, Starting on Tue03/14/20 at 0829, Until Tue03/14/20 at 1248, Anesthesia Intra-op, Routine neostigmine (BLOXIVERZ) injection Given 03/14/2020 12:22 PM EDT 3 mg PRN, Starting on Tue03/14/20 at 1222, Until Tue03/14/20 at 1248, Anesthesia Intra-op, Routine ondansetron (ZOFRAN) injection Given 03/14/2020 12:07 PM EDT 8 mg PRN, Starting on Tue03/14/20 at 1207, Until Tue03/14/20 at 1248, Anesthesia Intra-op, Routine PHENYLephrine (BINA-SYNEPHRINE) 20 New Bag 03/14/2020 9:40 AM E DT 20 mcg/min 15 mL/hr mg in sodium chloride 250 mL (standard ADULT & Pedi greater than 20kg) infusion CONTINUOUS PRN, Starting on Tue03/14/20 at 0940, Until Tue03/14/20 at 1248, Anesthesia Intra-op, Routine propofol (DIPRIVAN) 10 mg/mL bolus injection Given 8:40 AM EDT 200 mg (Anesthesia) PRN, Starting on Tue03/14/20 at 0840, Until Tue03/14/20 at 1248, Anesthesia Intra-op protamine injection Given 03/14/2020 11:37 AM EDT 10 mg PRN, Starting on Tue03/14/20 at 1135, Until Tue03/14/20 at 1248, Anesthesia Intra-op, Routine Given 03/14/2020 11:36 AM EDT 10 mg Given 03/14/2020 11:35 AM EDT 10 mg rocuronium (ZEMURON) multi-dose injectio n Given 03/14/2020 10:42 AM EDT 20 mg PRN, Starting on Tue03/14/20 at 0841, Until Tue03/14/20 at 1248, Anesthesia Intra-op, Routine Given 03/14/2020 8:41 AM EDT 100 mg documented in this encounter Care Teams Aircraft Worker Relationship Specialty Start Date End Date Ilsa Smith MD PCP - General Family Medicine 03/05/[address] [place] [address] documented as of this encounter
--- OUTSIDE RECORDS SUMMARY | 2022-04-30 02:09 | XMS_ITS | Encounter Summary ---
:1975 Author Organization [facility] [place] [address] Care Team Providers Name Role Phone Ilsa Smith MD Primary Care Provider Encounter Details Date Type Department Care Team Description 10/15/2020 Telephone Vascular Surgery at [facility] [place] [address] Social History Tobacco Use Types Packs/Day Years Used Date Never Smoker 0 0 Smokeless Tobacco: Never Used Alcohol Use Standard Drinks/Week Comments Yes 14 (1 standard drink = 0.6 oz pure alcoh ol) Sex Assigned at Date Recorded Not on file documented as of this encounter Miscellaneous Notes Telephone Encounter - Shabana Owens - 10/15/2020 12:00 PM EST Recall: Moreland CHRISTIANA - PVD -6 MO FU 09/25/2020 tried calling x1, no vm set up, sending letter Attempted callx2, VM not set up 10/15/2020 HH Letter sent, recall closed 10/15/2020 HH documented in this encounter Plan of Treatment Not on filedocumented as of this encounter Visit Diagnoses Not on filedocumented in this encounter Care Teams Annealing Torch Operator Relationship Specialty Start Date End Date Ilsa Smith MD PCP - General Family Medicine 03/05/[address] [place], [place] [id number] (work) documented as of this encounter
--- OUTSIDE RECORDS SUMMARY | 2022-04-30 02:09 | XMS_ITS | Encounter Summary ---
:1975 Author Organization [facility] [place] [address] Care Team Providers Name Role Phone Ilsa Smith MD Primary Care Provider Encounter Details Date Type Department Care Team Description 04/07/2020 TH Visit Vascular Surgery at Ree Moreland MD Critical lower limb (TeleHealth) [facility] VASCULAR SURGERY [place] [phone] Social History Tobacco Use Types Packs/Day Years Used Date Never Smoker 0 0 Smokeless Tobacco: Never Used Alcohol Use Standard Drinks/Week Comments Yes 14 (1 standard drink = 0.6 oz pure alcoh ol) Sex Assigned at Date Recorded Not on file documented as of this encounter Progress Notes Byron Moreland MD - 04/07/2020 11:00 AM EDT Images from the original note were not included. Vascular Surgery Clinic Visit April 07, 2020 CC: Patient is a 44 y.o. male who is here for postoperative visit following left iliofemoral endarterectomy on 03/14/20. 03/14/20 L iliofemoral endarterectomy This is a telephone clinic visit. Patient underwent above surgery after presenting with painful blue toes. Doing well without any claudication, rest pain, or non-healing wounds. ROS is negative for history of CAD, AR, CP, or SOB. No history suggestive of stroke, TIA, or amaurosis fugax. Has DM, on oral hypoglycemics. Has never smoked. PMH: HTN, DM, testicular cancer s/p L orchiectomy , rhabdomyosarcoma s/p chemo, resection, and XRT All: PCN Meds include: asa, lisinopril, lipitor, metformin ?? Tob: never FHx: neg for coagulopathy ?? Physical Exam: States his incision is well-healed. Had his radha and sutures removed on 04/03/20. Labs: Clinical Dietitian (03/16/20): 1.05 Lipids (03/15/20): TC 79, HDL 38, LDL 34 HbA1C (03/01/20): 7.9 Imaging studies: I have personally reviewed the following imaging studies. CHRISTIANA (04/03/20): 1.24/1.23 Toe pressures 138/122 A/P: 44yo diabetic male s/p L iliofemoral endarterectomy for CLI, doing well. Lesion in his femoral artery likely related to his radiation therapy. -con't asa and statin -tight blood sugar control and diabetic foot care including usage of properly fitting shoes -f/u 6mo with CHRISTIANA Byron Moreland MD documented in this encounter Plan of Treatment Not on filedocumented as of this encounter Visit Diagnoses Diagnosis Critical lower limb ischemia Unspecified circulatory system disorder documented in this encounter Care Teams Chemistry Associate Relationship Specialty Start Date End Date Ilsa Smith MD PCP - General Family Medicine 03/05/20 [address] [place] [address] documented as of this encounter
--- OUTSIDE RECORDS SUMMARY | 2022-04-30 02:09 | XMS_ITS | Encounter Summary ---
:1975 Author Organization [facility] [place] [address] Care Team Providers Name Role Phone Ilsa Smith MD Primary Care Provider Encounter Details Date Type Department Care Team Description 03/07/2020 Telephone [facility] [place] [phone] Social History Tobacco Use Types Packs/Day Years Used Date Never Smoker 0 0 Smokeless Tobacco: Never Used Alcohol Use Standard Drinks/Week Comments Yes 14 (1 standard drink = 0.6 oz pure alcoh ol) Sex Assigned at Date Recorded Not on file documented as of this encounter Miscellaneous Notes Telephone Encounter - Shabana Cantu - 03/07/2020 9:11 AM EDT I spoke with Mr. Krishnan. He is aware of his procedure scheduled with Dr. Moreland on Tuesday03/14/20. He knows to stop his Metformin 2 days prior as well. We discussed that he may require a Covid test dueto admission. He states he had this done about a week ago. I let him know that the Hotline RN's and him could determine if he needs another one. He was agreeable to this. documented in this encounter Plan of Treatment Not on filedocumented as of this encounter Visit Diagnoses Not on filedocumented in this encounter Care Teams Drum Operator Relationship Specialty Start Date End Date Ilsa Smith MD PCP - General Family Medicine 03/05/[address] [place] [address] documented as of this encounter
--- OUTSIDE RECORDS SUMMARY | 2022-04-30 02:09 | XMS_ITS | Encounter Summary ---
:1975 [place] [address] Care Team Providers Name Role Phone Ilsa Smith MD Primary Care Provider Reason for Visit Auth/Cert Specialty Diagnoses / Procedures Referred By Contact Refer red To Contact Diagnoses Left leg CLI Procedures PRO THROMBOENDARTECTMY FEMORAL COMMON @[email or web address], COMMON FEMORAL W OR W/O PATCH GRAFT ([facility] 15.31) Referral ID Status Reason Start Date Expiration Date Visits Requ ested Visits Authorized [id number] 1 1 Encounter Details Date Type Department Care Team Description 03/14/2020 Surgery Main Operating Room Ree Moreland MD @[email or web address], [facility] R ILIOFEMORAL W OR W/O [facility] PATCH GRAFT ([place] [facility] PRISCILA 19.86) [place] [address] [place] [address] [phone] Social History Tobacco Use Types Packs/Day Years Used Date Never Smoker 0 0 Smokeless Tobacco: Never Used Alcohol Use Standard Drinks/Week Comments Yes 14 (1 standard drink = 0.6 oz pure alcoh ol) Sex Assigned at Date Recorded Not on file documented as of this encounter Last Filed Vital Signs Vital Sign Reading Time Taken Comments Blood Pressure 124/68 03/14/2020 1:15 PM EDT Pulse 73 03/14/2020 1:15 PM EDT Temperature 36.2 ??C (97.2 ??F) 03/14/2020 12:40 PM EDT Respiratory Rate 14 03/14/2020 1:15 PM EDT Oxygen Saturation 100% 03/14/2020 1:15 PM EDT Inhaled Oxygen Concentration - - Weight 87 kg (191 lb 14.4 oz) 03/14/2020 7:20 AM EDT Height 177.8 cm (5' 10) [...] Process Instructions: There is no in-house vascular microbiology lab technician available on weeknights (5pm-8am), weekends, or holidays. IF THIS IS A REQUEST FOR AN EMERGENT STUDY DURING THOSE HOURS, please have the senior provider responsible for the patient page the Vascular Surgery Fellow/Senior Resident site operations manager to discuss options. Scheduling Instructions: Questions: Indication for study/signs & symptoms: s/p L CERTIFIED [address] INTERPRETER endarterectomy Question to be answered: Arterial patency Preferred location?: [facility] Clin[facility] Anticoagulation & Antiplatelet: Anticoagulation: None indicated Antiplatelet: Agent: ASA Indication: Arterial disease Intended Duration: care home For questions regarding these medications, please contact: [...] For any problems or questions please call [phone] JOSE Clay, indigo vat tender cloth Nurse Clinician For issues on weeknights after 5pm and weekends please call [phone] and ask for the Vascular Fellow site operations manager. documented in this encounter Discharge Instructions Patient [...] For any problems or questions please call [phone] JOSE Clay, indigo vat tender cloth Nurse Clinician For issues on weeknights after 5pm and weekends please call [phone] and ask for the Vascular Fellow site operations manager. documented in this encounter Medications at Time [...] BID ??? acetaminophen 1,000 mg Oral Q6H [facility] Operations This Hospitalization: 03/14/20: Left iliofemoral endarterectomy [...] Resume all home medications Anticoagulation: Antiplatelet: ASA, jail Radha Escalante MD 03/15/2020 Pager: [phone] Aakash White MD - 03/14/2020 10:00 PM [...] Studies/Imaging: CTA BLE (03/01/2020): Focal severe L CERTIFIED COURT INTERPRETER stenosis ABIs (03/05/2020): Right ?Pressure (mm Hg) [...] Femoral Artery ?Monophasic ? Popliteal Artery ? [place]-Biphasic ? Dorsalis Pedis (Ankle) Artery ?126 ? 0.75 ??[place]-Biphasic ? Posterior Tibial (Ankle) Artery ??139 ? 0.83 ??[place]-Biphasic ? Great Toe ?88 ? 0.53 ? Interpretation: ?? RIGHT: No significant lower extremity arterial occlusive disease. Normal ankle/brachial pressure ratios, ankle Doppler waveforms and toe pressures. ?? LEFT: Mild lower extremity arterial occlusive disease. Findings are consistent with common femoral disease level. Assessment and Plan: Killian Krishnan is a 44 y.o. 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 Plan for L femoral endarterectomy. Risks, benefits, and alternatives were discussedand patient elects to proceed. Robin Aguilar [facility] Vascular Surgery Pager #[phone] documented in this encounter Miscellaneous Notes Initial Assessments - Timoteo Lawrence RN - 03/16/2020 11:16 AM EDT Office [...] care provider on file: Ilsa Smith MD [phone] Advance Directive on file and Code Status: Full Code. If AD's have not been completed Valorie krishnan would be surrogate decision maker per [place] surrogate decision making law. Any patient receiving care at [facility] must abide by [place] law. The hierarchy for surrogate decision making [...] (i) The agent with financial power of hospice nurse practitioner or a conservator appointed in accordance with RSA 464-A. (j) The guardian of the patient???s estate. Patient???s Functional Status: Standby assist Living Situation: Lives at home w/ spouse [address] [facility] [address] Supports: Family Assessment: Patient with no apparent RNCM/SW needs at this time. No housing, transportation, insurance, resources concerns identified at this time. Supports in place to achieve a safe post-hospital transition. No identified barriers to accessing necessary care and/or follow-up after discharge. Plan: Patient to d/c to home via family when medically ready. president and ceo/Environmental Field Technician will continue to follow patient???s progress and remain available if situation changes for coordination of care, psychosocial support and/or discharge planning. Timoteo Lawrence RN Pager [phone] Plan of Care - Mikaela Martell PTA [...] signs. Plan of Care - Sushila Fisher RN - 03/16/2020 7:04 AM EDT Problem: Patient Care Overview Goal: Plan of Care Review Outcome: Ongoing (Interventions Implemented as Appropriate) 03/16/20 0701 Plan of Care Review Progress progress toward [...] 19.86) performed by Tenisha Moreland MD at [facility] MAIN OR Active Non-Hospital Problems Diagnosis ??? [...] Monitor BP given episode of hypotension. Lines: [place] BUEs, anjali Activity Orders: AAT Mobility and [...] in this evaluation. Time IN / OUT: 1030-9531 Total Evaluation Minutes, Physical Therapy: 25(mod complexity EV and TEF) PHYLLIS KEARNEY, PT Pager: [phone] Physical Therapy Inpatient Rehabilitation Department Plan of Care - Rich Puente RN - 03/15/2020 3:44 AM EDT Problem: Patient Care Overview Goal: Plan of Care Review Outcome: Ongoing (Interventions Implemented as Appropriate) 03/14/205 03/15/20 0339 Plan of Care Review Progress [...] Tyson MD - 03/14/2020 6:25 PM EDT [facility] Operative Note Patient Name: Killian Krishnan : [id number] MR#: [id number] Case Date: 03/14/2020 Surgeon: Surgeon(s) and Role: [...] incision is completely closed without any wires, natalie, drains or other devices Disposition: awakened from [...] toe syndrome in setting of severe L CERTIFIED COURT INTERPRETER stenosis. Plan for L femoral endarterectomy. Procedure [...] inguinal ligament was re-approximated with #1 prolene [id number]. The wound was then closed in multiple [...] Operative Note Patient Name: Killian Krishnan : [id number] MR#: [id number] Case Date: 03/14/2020 Surgeon: Surgeon(s) and Role: [...] Component Value Ref Test Analysis Performed At [facility] Range Method Time Signature VB Text Department: Vascular Surgery Lab VASCUBASE Report Patient: [id number] (KILLIAN KRISHNAN) CPT: 81692 ICD10: I75.022 Referring Physician: TENISHA MORELAND MD ?? Phone: Indications: S/p left common femoral endarterectomy, ? bermeo e in [place] Diabetes mellitus: Yes ICD10 Diagnosis Code: I75.022 Findings: Right ?Pressure (mm Hg) ?? [place] ??Waveform ?TBI ?? Brachial Artery ?148 ? Dorsalis Pedis (Ankle) Arter y ?168 ? 1.14 ??Triphasic ? Posterior Tibial (Ankle) Art priscila ??183 ? 1.24 ??Triphasic ? Great Toe ?138 ?0.93 ?? Left ? Pressure (mm Hg) ?? [place] ??Waveform ?TBI ?? Brachial Artery ?141 ? Dorsalis Pedis (Ankle) Arter y ?177 ? 1.20 ??Triphasic ? Posterior Tibial (Ankle) Art priscila ??182 ? 1.23 ??Triphasic ? Great Toe [...] Signature POC Glucose 175 65 - 199 [facility] mg/dL [facility] Comment: Supplemental ranges: <140 mg/dL before meals <180 mg/dL all other times of the day Specimen Anatomical Collection Method Collection Time Receive d Time (Source) Location / / Volume Laterality Blood specimen 03/16/2020 11:55 0 (specimen) AM EDT 11:55 AM EDT Tenisha Moreland MD POINT OF CARE TEST ORDERABLE S Performing Organization Address City/State/[place] [address] POCT Glucose (03/16/2020 7:34 AM EDT) P athologist Signature POC Glucose 150 65 - 199 [facility] Comment: Supplemental ranges: <140 mg/dL before meals <180 mg/dL all other times of the day Specimen Anatomical Collection Method Collection Time Receive d Time (Source) Location / / Volume Laterality Blood specimen 03/16/2020 7:34 AM 020 7:34 (specimen) EDT AM EDT Tenisha Moreland MD POINT OF CARE TEST ORDERABLE S Performing Organization Address City/State/[place] [address] (ABNORMAL) Differential, Automated (03/16/2020 4:04 AM EDT) Patholo gist Method Time Signature Neutrophils % 69.4 % [facility] Neutr Abs (ANC) 6.37 (H) 1.70 - [facility] 6.10 [facility] x10(3)/[facility] LABORATORY Lymphocytes % 19.5 % [facility] Lymphocytes Abs 1.8 0.9 - 3.2 [facility] x10(3)/[facility] LABORATORY Monocytes % 8.5 % [facility] Monocyte Abs 0.8 0.3 - 0.9 [facility] x10(3)/[facility] LABORATORY Eosinophils % 1.8 % [facility] Eosinophils Abs 0.2 0.0 - 0.4 [facility] x10(3)/[facility] LABORATORY Basophils % 0.4 % [facility] Basophils Abs 0.0 0.0 - 0.1 [facility] x10(3)/[facility] LABORATORY Immature Gran % 0.40 % [facility] Comment: Immature granulocytes(IG's)percentage an d absolute count will include metamyelocytes, myelocytes, and promyelo cytes. Blood smears from CBCs yielding IG's will be scanned manually for concor dance. If this scan disagrees with the automated IG or if promyelocytes are not ed, a manual differential will be performed. Qi Gran Abs 0.04 0.00 - 0.04 x10(3)/[facility] LABORATORY Specimen Anatomical Collection Method Collection Time Receive d Time (Source) Location / / Volume Laterality Blood specimen 03/16/2020 4:04 AM 020 4:47 (specimen) EDT AM EDT Resulting Agency Comment Spec In Lab Tae Tyson MD HEMATOLOGY ORDERABLES Performing Organization Address City/State/Z[place] [address] (ABNORMAL) Hemogram (03/16/2020 4:04 AM EDT) Analysis Performed At Patho logist Time Signature WBC 9.2 4.0 - 9.5 [facility] x10(3)/[facility] LABORATORY RBC 3.82 (L) 4.58 - [facility] 5.54 [facility] x10(6)/[facility] LABORATORY Hemoglobin 11.5 (L) 13.7 - [facility] 16.5 gm/dL [facility] Hematocrit 34.0 (L) 40.5 - [facility] 48.5 % [facility] MCV 89.0 82.9 - [facility]1 [facility] LABORATORY MCH 30.1 27.5 - [facility] 32.1 pg [facility] MCHC 33.8 32.0 - [facility] 35.7 gm/dL [facility] Platelets 223 145 - 357 [facility] x10(3)/[facility] LABORATORY RDWSD 40.9 36.0 - [facility] 45.0 [facility] LABORATORY RDWCV 12.6 11.4 - [facility] 13.8 % [facility] MPV 9.9 7.6 - 12.9 [facility] LABORATORY nRBC % Auto 0.0 % [facility] nRBC Abs Auto 0.000 0.000 - [facility] 0.000 [facility] x10(3)/[facility] LABORATORY Specimen Anatomical Collection Method Collection Time Receive d Time (Source) Location / / Volume Laterality Blood specimen 03/16/2020 4:04 AM 020 4:47 (specimen) EDT AM EDT Resulting Agency Comment Spec In Lab Tae Tyson MD HEMATOLOGY ORDERABLES Performing Organization Address City/State/ZIP [place] [address] Basic Metabolic Panel (non-fasting) (03/16/2020 4:04 AM EDT) athologist Signature Glucose Lvl 157 65 - 199 [facility] mg/dL [facility] Comment: Diabetes: >=200 mg/dL plus symp toms BUN 15 10 - 20 mg/dL [facility] Creatinine 1.05 0.80 - 1.50 mg/dL [facility] Sodium 137 135 - 145 mmol/L [facility] Potassium 3.8 3.5 - 5.0 mmol/L [facility] Comment: Please note: ??Patients with WBC >100,00 0 may have falsely elevated Potassium levels. ??For accurate Potassium quantif ication in these patients send serum separator tube (gold top) for subsequent determinations. ??Contact the Clinical Chemistry Laboratory if there are any qu estions. Chloride 103 98 - 107 mmol/L [facility] CO2 24 22 - 31 mmol/L [facility] Anion Gap 10 5 - 15 mmol/L [facility] Calcium 8.9 8.5 - 10.5 mg/dL [facility] Estimated GFR 85 >=60 mL/min/1.73 m?? [facility] Comment: The eGFR was calculated using the CKD-EP I equation. As with all creatinine based estimates of kidney function, eGFR values calculated with the CKD-EPI equation are not accurate in patients wi th acute kidney failure, extremes of body mass or the acutely ill. [email or web address] eGFR 98 >=60 mL/min/1.73 m?? [facility] Comment: The eGFR was calculated using the CKD-EP I equation. As with all creatinine based estimates of kidney function, eGFR values calculated with the CKD-EPI equation are not accurate in patients wi th acute kidney failure, extremes of body mass or the acutely ill. [email or web address] Specimen Anatomical Collection Method Collection Time Receive d Time (Source) Location / / Volume Laterality Blood specimen 03/16/2020 4:04 AM 020 4:47 (specimen) EDT AM EDT Resulting Agency Comment Spec In Lab Tenisha Moreland MD CHEMISTRY ORDERABLES Performing Organization Address City/[facility]/[place] [address] POCT Glucose (03/15/2020 8:40 PM EDT) athologist Signature POC Glucose 193 65 - 199 [facility] Comment: Supplemental ranges: <140 mg/dL before meals <180 mg/dL all other times of the day Specimen Anatomical Collection Method Collection Time Receive d Time (Source) Location / / Volume Laterality Blood specimen 03/15/2020 8:40 PM 020 8:40 (specimen) EDT PM EDT Tenisha Moreland MD POINT OF CARE TEST ORDERABLE S Performing Organization Address City/[facility]/[place] [address] (ABNORMAL) POCT Glucose (03/15/2020 7:36 PM EDT) P athologist Signature POC Glucose 214 (H) 65 - 199 [facility]/dL [facility] Comment: Supplemental ranges: <140 mg/dL before meals <180 mg/dL all other times of the day Specimen Anatomical Collection Method Collection Time Receive d Time (Source) Location / / Volume Laterality Blood specimen 03/15/2020 7:36 PM 020 7:36 (specimen) EDT PM EDT Tenisha Moreland MD POINT OF CARE TEST ORDERABLE S Performing Organization Address City/State/[place] [address] (ABNORMAL) POCT Glucose (03/15/2020 4:16 PM EDT) athologist Signature POC Glucose 207 (H) 65 - 199 [facility] mg/dL [facility] Comment: Supplemental ranges: <140 mg/dL before meals <180 mg/dL all other times of the day Specimen Anatomical Collection Method Collection Time Receive d Time (Source) Location / / Volume Laterality Blood specimen 03/15/2020 4:16 PM 020 4:16 (specimen) EDT PM EDT Tenisha Moreland MD POINT OF CARE TEST ORDERABLE S Performing Organization Address City/[facility]/[place] [address] POCT Glucose (03/15/2020 11:35 AM EDT) athologist Signature POC Glucose 169 65 - 199 [facility] mg/dL [facility] Comment: Supplemental ranges: <140 mg/dL before meals <180 mg/dL all other times of the day Specimen Anatomical Collection Method Collection Time Receive d Time (Source) Location / / Volume Laterality Blood specimen 03/15/2020 11:35 0 (specimen) AM EDT 11:35 AM EDT Tenisha Moreland MD POINT OF CARE TEST ORDERABLE S Performing Organization Address City/[facility]/[place] [address] POCT Glucose (03/15/2020 9:54 AM EDT) athologist Signature POC Glucose 187 65 - 199 [facility] mg/dL [facility] Comment: Supplemental ranges: <140 mg/dL before meals <180 mg/dL all other times of the day Specimen Anatomical Collection Method Collection Time Receive d Time (Source) Location / / Volume Laterality Blood specimen 03/15/2020 9:54 AM 020 9:54 (specimen) EDT AM EDT Tenisha Moreland MD POINT OF CARE TEST ORDERABLE S Performing Organization Address City/State/[place] [address] POCT Glucose (03/15/2020 7:33 AM EDT) athologist Signature POC Glucose 131 65 - 199 [facility] mg/dL [facility] Comment: Supplemental ranges: <140 mg/dL before meals <180 mg/dL all other times of the day Specimen Anatomical Collection Method Collection Time Receive d Time (Source) Location / / Volume Laterality Blood specimen 03/15/2020 7:33 AM 020 7:33 (specimen) EDT AM EDT Tenisha Moreland MD POINT OF CARE TEST ORDERABLE S Performing Organization Address City/State/[place] [address] (ABNORMAL) BMP w/fasting Glucose (03/15/2020 4:11 AM EDT) athologist Signature Glucose 141 (H) 65 - 99 [facility] Fasting mg/dL [facility] Comment: ?Fasting* Glucose Interpretive C riteria [...] of Diabetes Mellitus, Position Statement from the [place] [employer]. ??Diabete s Care, Volume 33, Supplement 1, Aug 2009 BUN 15 10 - 20 mg/dL [facility] Creatinine 0.89 0.80 - 1.50 mg/dL [facility] Sodium 135 135 - 145 mmol/L [facility] Potassium 4.1 3.5 - 5.0 mmol/L [facility] Comment: Please note: ??Patients with WBC >100,00 0 may have falsely elevated Potassium levels. ??For accurate Potassium quantif ication in these patients send serum separator tube (gold top) for subsequent determinations. ??Contact the Clinical Chemistry Laboratory if there are any qu estions. Chloride 100 98 - 107 mmol/L [facility] CO2 26 22 - 31 mmol/L [facility] Anion Gap 9 5 - 15 mmol/L [facility] Calcium 8.8 8.5 - 10.5 mg/dL [facility] Estimated GFR 103 >=60 mL/min/1.73 m?? [facility] Comment: The eGFR was calculated using the CKD-EP I equation. As with all creatinine based estimates of kidney function, eGFR values calculated with the CKD-EPI equation are not accurate in patients wi th acute kidney failure, extremes of body mass or the acutely ill. [email or web address] eGFR 119 >=60 mL/min/1.73 m?? [facility] Comment: The eGFR was calculated using the CKD-EP I equation. As with all creatinine based estimates of kidney function, eGFR values calculated with the CKD-EPI equation are not accurate in patients wi th acute kidney failure, extremes of body mass or the acutely ill. [email or web address] Specimen Anatomical Collection Method Collection Time Receive d Time (Source) Location / / Volume Laterality Blood specimen 03/15/2020 4:11 AM 020 4:47 (specimen) EDT AM EDT Resulting Agency Comment Spec In Lab Tae Tyson MD CHEMISTRY ORDERABLES Performing Organization Address City/State/Z[place] [address] (ABNORMAL) Differential, Automated (03/15/2020 4:11 AM EDT) [facility] Method Time Signature Neutrophils % 68.8 % [facility] Neutr Abs (ANC) 6.63 (H) 1.70 - [facility] 6.10 [facility] x10(3)/[facility] L LABORATORY Lymphocytes % 22.9 % [facility] Lymphocytes Abs 2.2 0.9 - 3.2 [facility] x10(3)/[facility] LABORATORY Monocytes % 6.5 % [facility] Monocyte Abs 0.6 0.3 - 0.9 [facility] x10(3)/[facility] LABORATORY Eosinophils % 1.2 % [facility] Eosinophils Abs 0.1 0.0 - 0.4 [facility] x10(3)/[facility] LABORATORY Basophils % 0.4 % [facility] Basophils Abs 0.0 0.0 - 0.1 [facility] x10(3)/[facility] LABORATORY Immature Gran % 0.20 % [facility] Comment: Immature granulocytes(IG's)percentage an d absolute count will include metamyelocytes, myelocytes, and promyelo cytes. Blood smears from CBCs yielding IG's will be scanned manually for concor dance. If this scan disagrees with the automated IG or if promyelocytes are not ed, a manual differential will be performed. Qi Gran Abs 0.02 0.00 - 0.04 x10(3)/[facility] LABORATORY Specimen Anatomical Collection Method Collection Time Receive d Time (Source) Location / / Volume Laterality Blood specimen 03/15/2020 4:11 AM 020 4:47 (specimen) EDT AM EDT Resulting Agency Comment Spec In Lab Tae Tyson MD HEMATOLOGY ORDERABLES Performing Organization Address City/State/Z[place] [address] (ABNORMAL) Hemogram (03/15/2020 4:11 AM EDT) Analysis Performed At Patho logist Time Signature WBC 9.6 (H) 4.0 - 9.5 [facility] x10(3)/[facility] LABORATORY RBC 4.02 (L) 4.58 - [facility] 5.54 [facility] x10(6)/[facility] LABORATORY Hemoglobin 12.2 (L) 13.7 - [facility] 16.5 gm/dL [facility]ORY Hematocrit 34.7 (L) 40.5 - [facility] 48.5 % [facility] LABORAT[facility] MCV 86.3 82.9 - [facility] 93.1 [facility] LABORATORY MCH 30.3 27.5 - [facility] 32.1 pg [facility] MCHC 35.2 32.0 - [facility] 35.7 gm/dL [facility] Platelets 219 145 - 357 [facility] LABORATORY RDWSD 39.8 36.0 - [facility] 45.0 [facility] ER LABORATORY RDWCV 12.3 11.4 - [facility] 13.8 % [facility] LAB[facility]ATORY MPV 9.9 7.6 - 12.9 [facility] nRBC % Auto 0.0 % [facility] nRBC Abs Auto 0.000 0.000 - [facility] 0.000 [facility] x10(3)/[facility] LABORATORY Specimen Anatomical Collection Method Collection Time Receive d Time (Source) Location / / Volume Laterality Blood specimen 03/15/2020 4:11 AM 020 4:47 (specimen) EDT AM EDT Resulting Agency Comment Spec In Lab Tae Tyson MD HEMATOLOGY ORDERABLES Performing Organization Address City/State/[place] [address] Triglyceride (03/15/2020 4:11 AM EDT) P athologist Signature Triglycerides 94 mg/dL [facility] Comment: Average Risk/Lower Risk: <150 mg/dL Borderline High Risk: 150-199 mg/dL High Risk: 200-499 mg/dL Very High Risk: >ov=845 mg/dL Specimen Anatomical Collection Method Collection Time Receive d Time (Source) Location / / Volume Laterality Blood specimen 03/15/2020 4:11 AM 020 4:47 (specimen) EDT AM EDT Resulting Agency Comment Spec In Lab Tenisha Moreland MD CHEMISTRY ORDERABLES Performing Organization Address City/State/[place] [address] HDL/Cholesterol Profile (03/15/2020 4:11 AM EDT) P athologist Signature Chol, Total 79 mg/dL [facility] Comment: Lower Risk: <200 mg/dL Average Risk: 200-239 mg/dL Higher Risk: >he=254 mg/dL HDL 38 mg/dL [facility] Comment: Males: ?? Higher Risk: <40 mg/dL Females: ?? HIgher Risk: <50 mg/dL Chol/HDL Ratio 2.[address] [facility] Chol/HDL Interpretation See Note [facility] Comment: Lipid management should be guided by a p atient? s ASCVD risk, goals and preferences. ACC/AHA Guidelines recommend high intens ity statin if clinical ASCVD or LDL greater than or equal to 190 mg/dL. [email or web address] Measure LDL if Total Cholesterol minus H DL Cholesterol is greater than 220 mg/dL. Adults aged 40-75 with LDL 70-189 mg/dL should have their 10 year ASCVD risk estimated with the ACC/AHA ASCVD risk es timator http://tools.acc.org/VYECC-Qahf-Tihbxjcl r/ Statin should be discussed if risk [...] Organization Address City/State/Z[place] [address] LDL Cholesterol, Direct (03/15/2020 4:11 AM EDT) athologist Signature LDL Chol 34 mg/dL [facility] LABORATORY Comment: Lowest Risk: <100 mg/dL Lower Risk: 100-129 mg/dL Borderline High Risk: 130-159 mg/dL High Risk: 160-189 mg/dL Very High Risk: >vj=098 mg/dL Specimen Anatomical Collection Method Collection Time Receive d Time (Source) Location / / Volume Laterality Blood specimen 03/15/2020 4:11 AM 020 4:47 (specimen) EDT AM EDT Resulting Agency Comment Spec In Lab Tenisha Moreland MD CHEMISTRY ORDERABLES Performing Organization Address City/[facility]/ZIP Code Phon e Number [address] POCT Glucose (03/15/2020 1:14 AM EDT) athologist Signature POC Glucose 148 65 - 199 [facility] Comment: Supplemental ranges: <140 mg/dL before meals <180 mg/dL all other times of the day Specimen Anatomical Collection Method Collection Time Receive d Time (Source) Location / / Volume Laterality Blood specimen 03/15/2020 1:14 AM 020 1:14 (specimen) EDT AM EDT Tenisha Moreland MD POINT OF CARE TEST ORDERABLE S Performing Organization Address City/[facility]/ZIP Code Phon e Number [address] POCT Glucose (03/14/2020 8:48 PM EDT) athologist Signature POC Glucose 178 65 - 199 [facility] Comment: Supplemental ranges: <140 mg/dL before meals <180 mg/dL all other times of the day Specimen Anatomical Collection Method Collection Time Receive d Time (Source) Location / / Volume Laterality Blood specimen 03/14/2020 8:48 PM 020 8:48 (specimen) EDT PM EDT Tenisha Moreland MD POINT OF CARE TEST ORDERABLE S Performing Organization Address City/State/ZIP Code Phon e Number [address] POCT Glucose (03/14/2020 5:53 PM EDT) athologist Signature POC Glucose 150 65 - 199 BRANDI DAYRON mg/dL [facility] Comment: Supplemental ranges: <140 mg/dL before meals <180 mg/dL all other times of the day Specimen Anatomical Collection Method Collection Time Receive d Time (Source) Location / / Volume Laterality Blood specimen 03/14/2020 5:53 PM 020 5:53 (specimen) EDT PM EDT Tenisha Moreland MD POINT OF CARE TEST ORDERABLE S Performing Organization Address City/State/[place] [address] POCT Glucose (03/14/2020 4:36 PM EDT) athologist Signature POC Glucose 164 65 - 199 [facility] DAYRON mg/dL [facility] Comment: Supplemental ranges: <140 mg/dL before meals <180 mg/dL all other times of the day Specimen Anatomical Collection Method Collection Time Receive d Time (Source) Location / / Volume Laterality Blood specimen 03/14/2020 4:36 PM 020 4:36 (specimen) EDT PM EDT Tenisha Moreland MD POINT OF CARE TEST ORDERABLE S Performing Organization Address City/State/[place] [address] POCT Glucose (03/14/2020 12:50 PM EDT) athologist Signature POC Glucose 169 65 - 199 BRANDI CEBALLOSDAYRON mg/dL [facility] Comment: Supplemental ranges: <140 mg/dL before meals <180 mg/dL all other times of the day Specimen Anatomical Collection Method Collection Time Receive d Time (Source) Location / / Volume Laterality Blood specimen 03/14/2020 12:50 0 (specimen) PM EDT 12:50 PM EDT Tenisha Moreland MD POINT OF CARE TEST ORDERABLE S Performing Organization Address City/State/[place] [address] (ABNORMAL) BLOOD GAS 2 ARTERIAL (03/14/2020 9:16 AM EDT) Analysis Performed At Path logist [place] Signature pH Art 7.43 7.35 - [facility] 7.45 [facility] LABORATORY pCO2 Art 34 (L) 35 - 45 General acute hospital LABORATORY pO2 Art 274 (H) 85 - 104 General acute hospital LABORATORY HCO3 Art 22.1 20.0 - [facility] 26.0 [facility] mmol/L [facility] LABOR[facility] BE Art -2.3 -3.0 - 3.0 [facility] mmol/L [facility] Hgb Blood Gas 12.2 (L) 13.7 - [facility] 16.5 gm/dL [facility] O2HB Art 99.1 (H) 94.0 - [facility] 97.0 % [facility]ORY COHB Art 0.0 % [facility] Comment: Nonsmokers: 0.5-1.5% COHB Smokers: Variable, but usually less than 10% Toxic: 20-30% COHB Lethal: Greater than 60% COHB METHB Art 0.3 <=1.5 % [facility] Na Whole Blood 133 (L) 135 - 145 mmol/L [facility] K Whole Blood 4.1 3.5 - 5.0 mmol/L [facility] Comment: Please note: Patients with WBC >100,000 may have falsely elevated Potassium levels. Contact the Clinical Chemistry L aboratory if there are any questions. ICa Whole Blood 1.16 1.15 - 1.33 mmol/L [facility] Comment: Note: ??Total bilirubin higher than 20 m g/dL may lead to falsely low ionized calcium. CL Whole Blood 103 98 - 107 mmol/L [facility] Gluc Whole Bld 175 65 - 199 mg/dL [facility] Comment: Diabetes: >=200 mg/dL plus symp toms. Lactate WB 1.6 0.5 - 2.2 mmol/L [facility]OR[facility] Specimen Anatomical Collection Method Collection Time Receive d Time (Source) Location / / Volume Laterality Blood specimen 03/14/2020 9:16 AM 020 9:16 (specimen) EDT AM EDT Tenisha Moreland MD CHEMISTRY ORDERABLES Performing Organization Address City/State/ZIP [place] [address] (ABNORMAL) POCT Glucose (03/14/2020 7:16 AM EDT) P athologist Signature POC Glucose 213 (H) 65 - 199 BRANDI PADGETT mg/dL [facility] Comment: Supplemental ranges: <140 mg/dL before meals <180 mg/dL all other times of the day Specimen Anatomical Collection Method Collection Time Receive d Time (Source) Location / / Volume Laterality Blood specimen 03/14/2020 7:16 AM 020 7:16 (specimen) EDT AM EDT Tenisha Moreland MD POINT OF CARE TEST ORDERABLE S Performing Organization Address City/State/ZIP [place] [address] documented in this encounter Visit Diagnoses Not on filedocumented in this encounter Admitting Diagnoses Diagnosis Blue [...] Given 03/14/2020 6:15 PM EDT 40 mg cellulose (fibrillar), Given 03/14/2020 9:47 AM EDT 1 each 19- Surgical Site oxidized (SURGICEL) 2 x 4 pad ONCE PRN, Starting on Tue03/14/20 at 0947, Until Tue03/16/20 at 1612, Intra-Operative (Intra-Procedure), Routine dextrose 10% infusion 250 mL, at 1,000 [...] of the active insulin. gelatin adsorbable (GELFOAM) Given 03/14/2020 9:46 AM EDT 3 each 19- Surgical Site sponge ONCE PRN, Starting on Tue03/14/20 at 0946, Until Tue03/16/20 at 1612, Intra-Operative (Intra-Procedure) glucagon (human recombinant) injection S olR 1 [...] PRN, Starting on 02/26 at 1325, Until Tue03/16/20 at 1612, Low [...] grams., Routine heparin (Porcine) subcutaneous injection Given 6:23 AM EDT 5,000 Units 5,000 Units 5,000 Units, Subcutaneous, EVERY 8 HOURS SCHEDULED, First dose on Tue03/14/20 at 2200, Until Discontinued, Routine Given 03/15/2020 9:34 PM EDT 5,000 Units Given 03/15/2020 2:55 PM EDT 5,000 Units insulin lispro (HumaLOG) VIAL injection 1-5 Given [...] Given 03/15/2020 4:17 PM EDT 2 Units lisinopriL (Prinivil;Zestril) tablet 20 mg Given 03/16/2020 9:12 AM EDT 20 mg 20 mg, Oral, DAILY, First dose on Tue03/15/20 at 0915, Until Discontinued, Routine Given 03/15/2020 9:00 AM EDT 20 mg ondansetron (ZOFRAN) injection 4-8 mg 4-8 mg, Intravenous, EVERY 8 HOURS PRN, Starting on Tue03/14/20 at 1720, Until Tue03/16/20 at 1612, Nausea, Start with 4mg and if ineffective in 30 minutes, give an additional 4mg If multiple antiemetic s are ordered, give ondansetron first. ondansetron (Zofran) tablet 4-8 mg 4-8 mg, Oral, EVERY 8 HOURS PRN, Startin g on Tue03/14/20 at 1720, Until Tue03/16/20 at 1612, Nausea, Vomiting, If multiple antiemetics [...] Until Tue03/16/20 at 1612, Pain, severe pain (7-10), Initial [...] Provider: Macy Rodriguez RN)2105 (Given - Provider: Rihc Puente, JOEL) 0000 (Not Given - Provider: Rich Puente, RN - Reason: Order parameters not met)0558 (Given - Provider: Rich Puente, RN)1131 (Given - Provider: Jenn Barksdale RN)1725 (Given - Provider: Daisha Cope RN) 0623 (Given - Provider: Sushila Justice I, JOEL)1156 (Given - Provider: Ghulam Reis, JOEL) 1,000 mg, Oral, EVERY 6 HOURS SCHEDULED, First dose on Tue03/14/20 at 1430, Until Discontinued, Administer for temperature greater than or equal to 38.2 degrees celsius. Maximum daily dose of acetaminop 2341 (Given - Provider: Sushila Justice I, JOEL) hen from all sources not to exceed 4,000 mg., Routine aspirin EC tablet 81 mg 1406 (Given - Provider: Macy valentine RN) 0855 (Given - Provider: Jenn Barksdale, JOEL) 0912 (Given - Provider: Ghulam Reis, JOEL) 81 mg, Oral, DAILY, First dose on Tue at 1430, Until Discontinued, Routine atorvastatin (Lipitor) tablet 40 mg 181 (Given - Prov ider: Janay Rodriguez RN) 1613 (Given - Provider: Jenn Barksdale RN) 40 mg, Oral, EVERY EVENING, First dose [...] Mcmullen RN) 0623 (Given - Provider: Sushila Mcmullen RN)1400 (Due) 5,000 Units, Subcutaneous, EVERY 8 [...] hours., Routine lisinopriL (Prinivil;Zestril) tablet 20 mg 899 (Given - Provider: Jenn Barksdale RN) 911 (Given - Provider: Ghulam cardozo RN) 20 mg, Oral, DAILY, First dose on Tue at 0915, Until Discontinued, Routine senna-docusate (Pericolace) 8.6-50 mg per tablet 2 tab let 2099 (Not Given - Provider: Rich Puente RN - Reason: Patient/family refused) 08 (Given - Provider: Jenn Barksdale RN)2099 (Not Given - Provider: Sushila Mcmullen RN - Reason: Patient/family refused) 911 (Given - Provider: Ghulam Reis RN) 2 tablet, Oral, 2 TIMES DAILY, First [...] CON TINUOUS, Starting Tue03/14/20 at 0800, Until 03/14/20 at 1325, Day of Surgery (Day of Procedure) lactated ringers infusion () 1339 (New Bag - Pr ovider: Dilcia Magdaleno RN) 100 mL/hr, at 100 mL/hr, Intravenous, CO NTINUOUS, Starting 03/14/20 at 1345, Until 03/15/20 at 0144 PRN Medication Order 03/14/2020 03/15/2020 03/16/2020 cellulose (fibrillar), oxidized (SURGICEL) 2 x 4 pad (CANCELED) 0947 (Given - Provider: Tenisha Moreland MD - Comment: 3 pieces of gelfoam covered in surgicel to make munchies on back table to be used as needed for hemostasis.) ONCE PRN, Starting Tue03/14/20 at 0947, Until 03/16/20 at 1612, Intra- Operative (Intra-Procedure), Routine dextrose 10% infusion(Linked Group 2) 250 mL, at 1,000 mL/hr, Intravenous, BENJAMIN RY 30 MIN PRN, Starting Tue03/14/20 at 1325, Until 03/16/20 at 1612, For BG 50-70 mg/dL: Oral [...] (CANCELE D) 1320 (Given - Provider: Dilcia Magdaleno RN)1333 (Given - Provider: Dilcia Magdaleno RN) [...] PRN, Startin g Tue03/14/20 at 1720, Until Tue03/16/20 at 1612, Nausea, Vomiting, If multiple antiemetics are ordered, use ondansetron first. PO Preferred. If patient unabl e to take PO, may give IV if ordered. St art with 4mg and if ineffective in 45 minutes, give an additional 4mg. If unable to take PO, may give IV., Routine oxyCODONE (Roxicodone) tablet 10-15 mg(Linked Group 4) 1500 (See Alternative - Provider: Macy Rordiguez RN)2228 (See Alternative - Provider: Rich Puente, JOEL) 1614 (Given - Provider: Jenn Barksdale RN) 1201 (See Alternative - Provider: Ghulam Reis RN) 10-15 mg, Oral, EVERY 4 HOURS PRN, Start ing Tue03/14/20 at 1325, Until Tue03/16/20 at 1612, Pain, severe pain (7-10), Initial dose 10mg. If pain control not adequate in 60 minutes, give additional 5mg, Routine oxyCODONE (Roxicodone) tablet 5-10 mg(Linked Group 4) 1500 (Given - Provider: Macy Rodriguez, RN)2228 (Given - Provider: Rich Puente, JOEL) 1614 (See Alternative - Provider: Jenn Barksdale, JOEL) 1201 (Given - Provider: Ghulam Reis, JOEL) 5-10 mg, Oral, EVERY 4 HOURS PRN, Starti ng Tue03/14/20 at 1325, Until Tue03/16/20 at 1612, Pain, moderate pain (4-6), Initial dose 5mg. If pain control not adequate in 60 minutes, give additional 5mg, Routine sodium chloride 0.9 % (flush) flush 5-20 mL 5-20 mL, Intravenous, EVERY 1 MIN PRN, S tarting Tue03/14/20 at 1720, Until Tue03/16/20 at 1612, flush, Flush pertains to all [...] med 250 mL, at 1,000 mL/hr, Intravenous, BENJAIMN RY 30 MIN PRN, Starting Tue03/14/20 at 1325, Until 03/16/20 at 1612
For BG 50-70 mg/dL: Oral treatment preferred:?? If able to drink, give 120 mL J uice or Regular (not diet) soda OR If PULLING MACHINE OPERATOR O, give 15 gram glucose 40% oral [...] Intramuscular, EVERY 30 MIN PRN, S tarting 03/14/20 at 1325, Until 03/16/20 at 1612, Low [...] PRN, Startin g Tue03/14/20 at 1720, Until Tue03/16/20 at 1612, Nausea, Vomiting
If multiple antiemetics [...] Tue03/14/20 at 1720, Until Tue03/16/20 at 1612, Nausea
Start with 4mg and if ineffective in 30 minutes, give an additional 4mg If mu ltiple antiemetics are ordered, give ond ansetron first.
Group 4: oxyCODONE (Roxicodone) tablet 5-10 mgJump to med 5-10 mg, Oral, EVERY 4 HOURS PRN, Starti ng Tue03/14/20 at 1325, Until Tue03/16/20 at 1612, Pain, moderate pain (4-6)
Initial [...]
Routine documented in this encounter Care Teams Escrow Assistant Relationship Specialty Start Date End Date Ilsa Smith MD PCP - General Family Medicine 03/05/[address] [place] [address] documented as of this encounter
--- OUTSIDE RECORDS SUMMARY | 2022-04-30 02:09 | XMS_ITS | Encounter Summary ---
:1975 Author Organization [facility] [place] [address] Care Team Providers Name Role Phone Ilsa Smith MD Primary Care Provider Encounter Details Date Type Department Care Team Description 03/06/2020 Telephone Vascular Surgery at [facility] [place] [address] Social History Tobacco Use Types Packs/Day Years Used Date Never Smoker 0 0 Smokeless Tobacco: Never Used Alcohol Use Standard Drinks/Week Comments Yes 14 (1 standard drink = 0.6 oz pure alcoh ol) Sex Assigned at Date Recorded Not on file documented as of this encounter Miscellaneous Notes Telephone Encounter - Shabana Cantu - 03/06/2020 2:30 PM EDT M for call back to review procedure date of 03/[address] Moreland. documented in this encounter Plan of Treatment Not on filedocumented as of this encounter Visit Diagnoses Not on filedocumented in this encounter Care Teams Concrete Layer Relationship Specialty Start Date End Date Ilsa Smith MD PCP - General Family Medicine 03/05/[address] [place] [address] documented as of this encounter
--- OUTSIDE RECORDS SUMMARY | 2022-04-30 02:09 | XMS_ITS | Encounter Summary ---
:1975 [place] [address] Care Team Providers Name Role Phone Ilsa Smith MD Primary Care Provider Reason for Visit Consultation (Routine) - Closed Specialty Diagnoses / Procedures Referred By Contact Refer red To Contact Vascular Surgery Diagnoses Blue toe syndrome of left lower extremity Marcus Shaikh APRN [facility] [address] [place] [address] [place] [address] Phone: Referral ID Status Reason Start Date Expiration Date Visits V isits Requested Authorized [id number] Closed Consult, 03/01/2020 03/01/2021 1 1 Test & Treat Encounter Details Date Type Department Care Team Description 03/05/2020 Tech Visit Vascular Lab at [facility] Blu e toe syndrome, left [place] [id number] Social History Tobacco Use Types Packs/Day [...] Diagnosis Comme nts CHRISTIANA, LEGS, MULTIPLE Routine 03/05/2020 10:41 AM Blue toe syndr ome, Results for this LEVELS EDT left procedure are i n the results section. documented in this encounter Results CHRISTIANA, legs, multiple levels (03/05/2020 10:41 AM EDT) Component Value Ref Test Analysis Performed At [facility] gist Range Method Time Signature VB Text Department: Vascular Surgery Lab VASCU[facility] Report Patient: [id number] (KILLIAN KRISHNAN) CPT: 06371 ICD10: I75.022 Referring Physician: IVELISSE LLANES MD ?? Phone: Indications: Patient with left great toe discolo ration and pain, ? blood flow to feet Diabetes mellitus: Yes ICD10 Diagnosis Code: I75.022 Findings: Right ?Pressure (mm Hg) ?? CHRISTIANA ??Waveform ?TBI ?? Brachial Artery ?163 ? Common Femoral Artery ?Triphasic ? Popliteal Artery ? Triphasic ? Dorsalis Pedis (Ankle) Arter y ?188 ? 1.13 ??Triphasic ? Posterior Tibial (Ankle) Art dante ??210 ? 1.26 ??Triphasic ? Great Toe ?135 ?0.81 ?? Left ? Pressure (mm Hg) ?? CHRISTIANA ??Waveform ?TBI ?? Brachial Artery ?167 ? Common Femoral Artery ?Monophasic ? Popliteal Artery ? Seneca-Biphasic ? Dorsalis Pedis (Ankle) Arter y ?126 ? 0.75 ??Seneca- Biphasic ? Posterior Tibial (Ankle) Art dante ??139 ? 0.83 ??Seneca-Biphasic ? Great Toe ?88 ? 0.53 ?? Interpretation: RIGHT: No significant lower extremity arterial occlusive dis ease. Normal ankle/brachial pressure ratios, ankle Doppler waveforms and toe pressures. LEFT: Mild lower extremity arterial occl usive disease. Findings are consistent with common femoral disease level. Limited Arterial Duplex: There are elevated velo cities in the LEFT mid common femoral artery (PSV 520 cm/s) which are consistent with a >5 0% stenosis. NOTE: Hypertension is present based on D rafapler derived systolic brachial blood pressure. Comparison: ??No previous study in our vascular lab da tabase for comparison. Electronically Signed by: TENISHA TSANG MD on 2020-03-10 12: 33:34 PM VB Text End of Report [facility] Report Specimen (Source) Anatomical Collection Method Collection Time Re ceived Time Location / / Volume Laterality 03/05/2020 10:41 AM EDT Ivelisse Llanes MD VASCULAR ORDERABLES Performing Organization Address City/State/ZIP Code Phon e Number [facility] documented in this encounter Visit Diagnoses Diagnosis Blue toe syndrome, left documented in this encounter Care Teams Icu Nurse Relationship Specialty Start Date End Date Ilsa Smith MD PCP - General Family Medicine 03/05/[address] [place] [address] documented as of this encounter
--- OUTSIDE RECORDS SUMMARY | 2022-04-30 02:09 | XMS_ITS | Encounter Summary ---
:1975 Author Organization [facility] [address] Care Team Providers Name Role Phone Ilsa Smith MD Primary Care Provider Encounter Details Date Type Department Care Team Description 04/22/2020 Orders Only Vascular Surgery at [facility] C ritical lower limb ischemia; [facility] SUPERVISOR URANIUM PROCESSING Blue toe syndrome [place] [address] Social History Tobacco Use Types Packs/Day Years [...] lower limb ischemia Unspecified circulatory system disorder 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 documented in this encounter Care Teams Machine Records Units Supervisor Relationship Specialty Start Date End Date Ilsa Smith MD PCP - General Family Medicine 03/05/[address] [place] [address] documented as of this encounter
--- OUTSIDE RECORDS SUMMARY | 2022-04-30 02:09 | XMS_ITS | Encounter Summary ---
:1975 Author Organization [facility] [place] [address] Care Team Providers Name Role Phone Alisia Cuellar MD Primary Care Provider Reason for Visit Reason Comments Psoriasis Encounter Details Date Type Department Care Team Description 05/03/2013 Office Visit Dermatology Trever Valencia, Psoriasis (Primary [address] MD Dx) [address] [place], [place] DERMATOLOGY [address] [place] [address] [phone] (Wo rk) Social History Tobacco Use Types Packs/Day Years Used Date Never Smoker Sex Assigned at Date Recorded Not on file documented as of this encounter Progress Notes Trever Valencia MD - 05/03/2013 9:00 AM EDT Problem: Psoriasis. Sameer follows up after last seeing me in 1996. At that time, we had been using UVB phototherapy. Since then he has been able just to use topicals and keep things under fairly good control, although this summer he noted spreading psoriasis up on the anterior thigh. He has been trying to get more sun this summer, and that has helped, but he has been also using a new cream, Eucerin Eczema Oatmeal Cream, and this seems to have helped really improve his psoriasis a lot. However, he decided to keep his appointment for today. His father has psoriasis, and Sameer has had psoriasis since he was a teenager. 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 The patient uses T/Gel shampoo and has for years. Physical examination reveals a pleasant, 37-year-old gentleman who has thin patches of psoriasis on the anterior shins bilaterally. He has some minimal involvement on his elbows. He does have some quarter-sized small patch plaques extending up onto the anterior thighs. However, each of these involved areas shows central clearing and does not appear to be improving with the patient's current moisturizing therapy. He has little to no problem in his scalp. Assessment and Plan: Psoriasis, mild recent flare. a. The patient appears to be controlling this now with just his emollient, and I would recommend that he continue it. b. The patient was also given samples of Cutar lotion and a prescription for triamcinolone cream, which he can apply b.i.d. to affected areas; 80 grams of triamcinolone 0.1% cream given with five refills. c. Information was given on the [employer] Psor[employer]. d. I would recommend also CeraVe cream as an excellent emollient to use if he sees decreasing benefit from his Eucerin. e. I recommended return to the clinic here p.r.n. for new lesions/concerns. COPY: Alisia Cuellar M.D. documented in this encounter Plan of Treatment Not on filedocumented as of this encounter Visit Diagnoses Diagnosis Psoriasis - Primary Other psoriasis documented in this encounter Care Teams Senior Producer Relationship Specialty Start Date End Date Alisia Cuellar MD PCP - General 05/03/13 03/04/[address] [place] [address] documented as of this encounter
--- OUTSIDE RECORDS SUMMARY | 2022-04-30 02:09 | XMS_ITS | Encounter Summary ---
:1975 Author Organization [facility] [place] [address] Care Team Providers Name Role Phone Ilsa Smith MD Primary Care Provider Encounter Details Date Type Department Care Team Description 03/05/2020 Hospital Encounter XRay at [facility] Byron Moreland, Critical lower limb ischemia ; [address] [place] Pre-op testing [facility] [id number] BIT[place] [phone] [place] [address] Social History Tobacco Use Types Packs/Day Years Used Date Never Smoker 0 0 Smokeless Tobacco: Never Used Alcohol Use Standard Drinks/Week Comments Yes 14 (1 standard drink = 0.6 oz pure alcoh ol) Sex Assigned at Date Recorded Not on file documented as of this encounter Medications at Time of Discharge [...] 80 Take 1 tablet by 90 tablet 02/2712/04/2020 mg Tablet mouth every evening. atorvastatin (Lipitor) 40 Take 2 tablets by 30 tablet 0 03/26/2020 mg Tablet mouth every evening. oxyCODONE-acetaminophen Take 1 tablet by 40 tablet 0 201903/16/2020 (Percocet) 5-325 mg Tablet mouth every 6 hours as needed for Pain. clopidogreL (Plavix) 75 mg Take 1 tablet by 30 tablet 0 11/201903/16/2020 Tablet mouth daily. atorvastatin (Lipitor) 40 Take 1 tablet by 30 tablet 0 11/201903/16/2020 mg Tablet mouth every evening. documented as of this encounter Plan of Treatment Not on filedocumented as of this encounter Procedures Procedure Name Priority Date/Time Associated Diagnosis Comme nts XR CHEST ONE VIEW Routine 03/05/2020 1:04 PM Critical lower li mb Results for this EDT ischemia procedure are in Pre-op testing the results section. documented in this encounter Results XR Chest One View [...] report, please contact e number below. ? Electronically signed by: Ashley Lujan [facility] ([phone]), at 03/05/2020 2:52 PM Narrative 03/05/2020 2:52 PM EDT EXAMINATION: XR [...] this report, please contact e number below. Electronically signed by: Ashley Lujan [facility] ([phone]), at 03/05/2020 2:52 PM Byron Moreland MD IMG DX ORDERABLES documented in this encounter Visit Diagnoses Diagnosis Critical lower limb ischemia Unspecified circulatory system disorder Pre-op testing Preoperative examination, unspecified documented in this encounter Care Teams [employer] Relationship Specialty Start Date End Date Ilsa Smith MD PCP - General Family Medicine 03/05/[address] [place] [address] documented as of this encounter
--- OUTSIDE RECORDS SUMMARY | 2022-04-30 02:09 | XMS_ITS | Encounter Summary ---
:1975 Author Organization [facility] [place] [address] Care Team Providers Name Role Phone Ilsa Smith MD Primary Care Provider Encounter Details Date Type Department Care Team Description 03/05/2020 Orders Only Vascular Surgery at [facility] Arely Ferrari PA [facility] [place] [address] VASCULAR SURGERY [phone] [place], [place] [address] (Wo rk) Social History Tobacco [...] on filedocumented in this encounter Care Teams [employer]asting [employer]er Relationship Specialty Start Date End Date Ilsa Smith MD PCP - General Family Medicine 03/05/[address] [place], [place] [id number] documented as of this encounter
[2022-04-30 10:51] LABS: ALT 83 U/L (16-63); AST 40 U/L (15-37); Albumin 3.9 g/dL (3.4-5.0); Alkaline Phosphatase 102 U/L (46-116); Anion Gap 8.2 mmol/L (3-11); BUN 15 mg/dL (7-18); Bilirubin, Total 0.6 mg/dL (0.2-1.0); CO2 27.8 mmol/L (21.0-32.0); Calcium 8.9 mg/dL (8.5-10.1); Calculated LDL 53 mg/dL (<100); Chloride 101 mmol/L (98-107); Cholesterol 115 mg/dL (<200); Estimated GFR 92.84 (mL/min/1.73m2); Glucose 229 mg/dL (74-106); HDL Cholesterol 48 mg/dL (40-60); Potassium 4.7 mmol/L (3.5-5.1); Sodium 137 mmol/L (136-145); Total Protein 7.6 g/dL (6.4-8.2); Triglyceride 74 mg/dL (<150)
[2022-04-30 18:08] LABS: Albumin ug/mg Crea 119 (<30); Albumin, Ur 12.2 mg/dL (See Note); Creatinine, Ur 102.9 mg/dL (See Note)
== END 2022-04-30 02:07 | disposition home or self-care (01) ==
LOC: LBO 02:06
PROVIDERS: PCP Family Medicine; Visit Provider Family Medicine
DX: E11.9 Type 2 diabetes mellitus without complications (principal)
CPT/HCPCS: 36415; 80053; 80061; 82043; 82570; 83036

== ENCOUNTER 2022-09-17 12:17 | Outpatient (REF) | payer BC, SELFPAY ==
[2022-09-17 12:58] LABS: COMMENT (LAB VIEW ONLY) 87.41 mg/dL; Microalb ug/mg Crea 84.8 ug/mg Cr
== END 2022-09-17 12:18 | disposition home or self-care (01) ==
LOC: LBN 12:17
PROVIDERS: PCP Family Medicine; Visit Provider Family Medicine
DX: Z12.11 Encounter for screening for malignant neoplasm of colon (principal)
CPT/HCPCS: 82043; 82570

== ENCOUNTER 2023-03-23 16:17 | Emergency (ER) | payer BC, SELFPAY ==
[2023-03-23] VITALS (207 sets, daily range): BP systolic 170–219; BP diastolic 73–100; PULSE 76–101; RESP 12–22; TEMP 36.4; O2SAT 93–99
--- NOTE | 2023-03-23 16:15 | RT.EKG_ITS ---
APPROVED REPORT Exam: Resting ECG Reason for Exam: chest pain Patient Location: E HR:97 bpm ECG Measurements Heart Rate 97 AXIS ME 216 P 37 QRSd 116 QRS -18 QT 372 T 60 QTc 474 Conclusion Sinus rhythm.. V-rate 60- 99 Prolonged ME interval...ME >205 Incomplete right bundle branch block No ST segment or T wave abnormalities to suggest occlusive [place]
--- NOTE | 2023-03-23 16:15 | DI.RAD_ITS ---
Exam(s) XR PORTABLE CHEST AP EXAM: XR PORTABLE CHEST AP CLINICAL HISTORY: Chest Pain. TECHNIQUE: 2D digital imaging was performed. COMPARISON: No exams were available for comparison FINDINGS: Single AP portable view. Heart size is upper normal. The mediastinum is not widened. Lungs are clear. No infiltrates nor obvious pleural effusions. IMPRESSION: No acute pulmonary findings on this single AP portable view of the chest. DATA REPOSITORY: RADIATION DOSE DELIVERED:
[2023-03-23 16:39] LABS: Abs Immature Grans 0.04 10^3/uL (0.0-0.06); Absolute Basophil Count 0.06 10^3/uL (0.0-0.2); Absolute Eosinophil Count 0.16 10^3/uL (0.0-0.7); Absolute Lymphocyte Count 2.18 10^3/uL (1.2-3.4); Absolute Monocyte Count 0.61 10^3/uL (0.1-0.8); Basophils % 0.5; Eosinophils % 1.4; HCT 39.8 % (40.0-50.0); Immature Grans % 0.4; Lymphocytes % 19.4; MCH 29.5 pg (27.0-33.0); MCHC 35.2 % (32.0-36.0); MCV 84 fL (80-95); MPV 9.1 fL (8.0-11.0); Monocytes % 5.4; Neutrophils % 72.9; Platelet Count 252 10^3/uL (130-400); RBC 4.74 10^6/uL (4.36-5.78); RDW 13.2 % (11.8-14.1); RDW-SD 40.4 fL; WBC 11.22 10^3/uL (4.4-10.8)
[2023-03-23 16:40] LABS: Absolute Neutrophil Count 8.18 10^3/uL (1.2-6.7)
--- NOTE | 2023-03-23 16:41 | ED.GENADUL_ITS ---
Discharge Plan Disposition Patient Disposition: Home Condition: Stable Discharge Details Clinical Impression: Chest pain, Hypomagnesemia Primary Care Provider: Solange Wolf ED Provider: Shaniqua Wheeler Home Meds and New Rx's Prescriptions: Continued atorvastatin 80 mg tablet 80 mg PO QPM Qty: 90 3RF Jardiance 25 mg tablet 25 mg PO DAILY Qty: 90 3RF lisinopril 20 mg tablet 20 mg PO DAILY Qty: 90 3RF Rx Instructions: take one tablet daily metformin 1,000 mg tablet 1,000 mg PO DAILY Qty: 180 3RF omeprazole 20 MG tablet,delayed release (DR/EC) 20 mg PO DAILY PRN aspirin [Aspir-81] 81 MG tablet,delayed release (DR/EC) 81 mg PO DAILY Qty: 30 Discharge Instructions Instructions: Chest Pain (ED), Hypomagnesemia (ED) Additional Instructions: Continue taking your medications as prescribed. No evidence of heart attack today. No blood clots in your lungs. Cardiac work-up was negative. Please discuss your blood pressure with your primary care doctor. Consider increasing your lisinopril. Your magnesium was also a little bit low today this was replaced with a magnesium supplement. Please increase foods with high magnesium content. Follow up with primary care provider in 3-5 days. Return to ED sooner if any worsening or concerns. Increase oral fluids. Please take Tylenol with food every 4-6 hours as needed for pain and swelling. Please discuss with your primary care doctor a echocardiogram or stress test. Stand Alone Forms: Work Release Referrals: Jada Salguero MD [ [facility] STAFF PHYSICIAN] - 2 weeks Solange Wolf MD [Primary Care Provider] - 3 days Medical Decision Making 47-year-old male presents to the ER with chief plaint chest pain which has been on and off since 10 AM this morning. 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 He describes it as sharp, intermittent and lower that comes up from his stomach, he denies any nausea vomiting diarrhea or sweaty feeling. He did take a low-dose aspirin this morning, He does have a strong family history is father had a AR at age 40. Does have a history of type 2 diabetes mellitus, hyperlipidemia, GERD, high blood pressure. He is hypertensive upon arrival. 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 He is having these sharp intermittent chest pains at rest. He is non-smoker. He does endorse alcohol 3-4 times a week. No recent trauma to his chest. Denies any long trips in car or plane. No swelling in his lower extremities. EKG was reviewed by [Dr. Dorman and myself] ER attending, old EKG available for review, please see official report. Questionable ST depression in the anterior leads. Normal sinus rhythm no STEMI. 243 mg of chewable aspirin ordered as patient had an aspirin this morning, cardiac work-up including serial readings ordered, chest x-ray PT PTT D-dimer added onto labs. Heart score pending initial troponin is 5 Differential diagnosis includes but not limited to CAD, AR, PE, pneumonia, musculoskeletal chest wall pain Initial troponin within normal limits, patient received 1 sublingual nitro which brought his blood pressure down to 182/73, informed by staff counsel that patient did not have any chest pain at that time. Magnesium slightly low at 1.6, magnesium 4 mg ordered p.o. Heart rate has improved to 86, awaiting serial troponin. Chest x-ray is within normal limits, pending D-dimer PT PTT. 1930: D-dimer within normal limits, upon reviewing patient's labs and discussion with patient and family he is still coming continuing to have some intermittent sharp chest pains mostly with movement. However, he states that the nitroglycerin did nothing to relieve his pain, I did discuss differential diagnoses with the family and patient including costochondritis, musculoskeletal, blood clots which we ruled out with D-dimer. CT chest PE protocol ordered. Pending serial troponin, repeat EKG obtained by staff which shows no change from previous. CT chest is negative for PE, or any active acute cardiopulmonary disease, see report noted below. Discussed results, instructed to follow-up with PCP to discuss outpatient stress test and echocardiogram if needed. Discussed return instructions. All her questions were answered to the best my ability. This text was generated using Rollad system, please disregard any oddities of phrase or misspellings. Medical Records Medical records reviewed: Yes I reviewed the patient's medical records. Imaging Data Radiologic Study: Imaging: CT Scan Radiologist's impression: CR XR PORTABLE CHEST AP 03/23/2023 4:59 PM FINDINGS: Pulmonary arteries: No pulmonary embolism identified. Aorta: No thoracic aortic aneurysm or dissection. Thyroid: Thyroid gland partially excluded from view but grossly unremarkable through its visualized portion. Lungs: No pulmonary consolidation. Pleural spaces: No pleural effusion or pneumothorax. Heart: Normal sized heart. Lymph nodes: No pathologically enlarged mediastinal or hilar lymph nodes. Liver: Probable fatty infiltration of the liver, difficult to confidently diagnose by CT imaging after administration of intravenous contrast. Bones/joints: Lower ribs partially excluded from view and incompletely evaluated. Otherwise, no acute fracture seen among the bones of the chest. Spinal degenerative change with small Schmorl's nodes and anterior osteophytes at multiple levels. Soft tissues: No gross soft tissue mass or fluid collection seen in the chest wall. IMPRESSION: 1. No active disease is seen in the chest. 2. Liver only partially visualized. Probable fatty infiltration of the liver, difficult to confidently diagnose by CT imaging after administration of intravenous contrast. Thank you for allowing us to participate in the care of your patient. Dictated and Authenticated by: London Restrepo MD Radiologic Study #2: Imaging: X-Ray Radiologist's impression: EXAM: XR PORTABLE CHEST AP CLINICAL HISTORY: Chest Pain. TECHNIQUE: 2D digital imaging was performed. COMPARISON: No exams were available for comparison FINDINGS: Single AP portable view. Heart size is upper normal. The mediastinum is not widened. Lungs are clear. No infiltrates nor obvious pleural effusions. IMPRESSION: No acute pulmonary findings on this single AP portable view of the chest. Lab Data Lab results reviewed: Yes I reviewed the patient's lab results. Labs: Laboratory Tests Range/Units 03/23/23 03/23/23 03/23/23 16:33 16:33 16:33 WBC (4.4-10.8) 10^3/uL 11.22 H RBC (4.36-5.78) 10^6/uL 4.74 Hgb (13.5-17.5) g/dL 14.0 Hct (40.0-50.0) % 39.8 L MCV (80-95) fL 84 MCH (27.0-33.0) pg 29.5 MCHC (32.0-36.0) % 35.2 RDW (11.8-14.1) % 13.2 Plt Count (130-400) 10^3/uL 252 MPV (8.0-11.0) fL 9.1 Immature Gran % 0.4 Neutrophils % 72.9 Lymphocytes % 19.4 Monocytes % 5.4 Eosinophils % 1.4 Basophils % 0.5 Nucleated RBC % (0.0-0.3) % 0.0 Absolute Neutrophils (1.2-6.7) 10^3/uL 8.18 H Absolute Lymphocytes (1.2-3.4) 10^3/uL 2.18 Absolute Monocytes (0.1-0.8) 10^3/uL 0.61 Absolute Eosinophils (0.0-0.7) 10^3/uL 0.16 Absolute Basophils (0.0-0.2) 10^3/uL 0.06 PT (9.3-11.0) sec 9.2 L INR (0.9-1.1) 0.9 APTT (21.5-31.9) sec 27.4 D-Dimer (<500) ng/mlFEU 332 Sodium (136-145) mmol/L 139 Potassium (3.5-5.1) mmol/L 4.1 Chloride (98-107) mmol/L 102 Carbon Dioxide (21.0-32.0) mmol/L 27.6 Anion Gap (3-11) mmol/L 9.4 BUN (7-18) mg/dL 17 Creatinine (0.70-1.30) mg/dL 1.1 Est GFR (CKD-EPI 2020) (mL/min/1.73m2) 82.29 Glucose (74-106) mg/dL 160 H Calcium (8.5-10.1) mg/dL 9.4 Magnesium (1.8-2.4) mg/dL 1.6 L Total Bilirubin (0.2-1.0) mg/dL 0.6 AST (15-37) U/L 20 ALT (16-63) U/L 43 Alkaline Phosphatase (46-116) U/L 139 H Troponin I (<or=60) ng/L < 50 Total Protein (6.4-8.2) g/dL 7.8 Albumin (3.4-5.0) g/dL 4.0 Add-On Test Request Range/Units 03/23/23 03/23/23 16:39 19:20 WBC (4.4-10.8) 10^3/uL RBC (4.36-5.78) 10^6/uL Hgb (13.5-17.5) g/dL Hct (40.0-50.0) % MCV (80-95) fL MCH (27.0-33.0) pg MCHC (32.0-36.0) % RDW (11.8-14.1) % Plt Count (130-400) 10^3/uL MPV (8.0-11.0) fL Immature Gran % Neutrophils % Lymphocytes % Monocytes % Eosinophils % Basophils % Nucleated RBC % (0.0-0.3) % Absolute Neutrophils (1.2-6.7) 10^3/uL Absolute Lymphocytes (1.2-3.4) 10^3/uL Absolute Monocytes (0.1-0.8) 10^3/uL Absolute Eosinophils (0.0-0.7) 10^3/uL Absolute Basophils (0.0-0.2) 10^3/uL PT (9.3-11.0) sec INR (0.9-1.1) APTT (21.5-31.9) sec D-Dimer (<500) ng/mlFEU Sodium (136-145) mmol/L Potassium (3.5-5.1) mmol/L Chloride (98-107) mmol/L Carbon Dioxide (21.0-32.0) mmol/L Anion Gap (3-11) mmol/L BUN (7-18) mg/dL Creatinine (0.70-1.30) mg/dL Est GFR (CKD-EPI 2020) (mL/min/1.73m2) Glucose (74-106) mg/dL Calcium (8.5-10.1) mg/dL Magnesium (1.8-2.4) mg/dL Total Bilirubin (0.2-1.0) mg/dL AST (15-37) U/L ALT (16-63) U/L Alkaline Phosphatase (46-116) U/L Troponin I (<or=60) ng/L < 50 Total Protein (6.4-8.2) g/dL Albumin (3.4-5.0) g/dL Add-On Test Request DONE ECG Data Prior ECG tracings: available for review Core Measures AMI Core Measures Followed: No Measure exclusions: not indicated (No STEMI) HPI General Mode of arrival: ambulatory . Date/Time Provider Initiated Documentation: 03/23/23 16:19 . Limitations to Documentation: no limitations . Information obtained by: patient, RN notes reviewed and old records reviewed . HPI Narrative: 47-year-old male presents to the ER with chief plaint chest pain which has been on and off since 10 AM this morning. 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 He describes it as sharp, intermittent and lower that comes up from his stomach, he denies any nausea vomiting diarrhea or sweaty feeling. He did take a low-dose aspirin this morning, He does have a strong family history is father had a AR at age 40. Does have a history of type 2 diabetes mellitus, hyperlipidemia, GERD, high blood pressure. He is hypertensive upon arrival. 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 He is having these sharp intermittent chest pains at rest. He is non-smoker. He does endorse alcohol 3-4 times a week. No recent trauma to his chest. Denies any long trips in car or plane. No swelling in his lower extremities. Related Data Home Medications Medication Instructions Recorded Confirmed omeprazole 20 mg tablet,delayed 20 mg PO DAILY PRN 11/12/13 03/23/23 release aspirin 81 mg tablet,delayed 81 mg PO DAILY #30 tab-caps 02/09/17 03/23/23 release (Aspir-) atorvastatin 80 mg tablet 80 mg PO QPM #90 tabs 09/17/22 03/23/23 empagliflozin 25 mg tablet 25 mg PO DAILY #90 tabs 09/17/22 03/23/23 (Jardiance) lisinopril 20 mg tablet 20 mg PO DAILY #90 tab-caps 09/17/22 03/23/23 metformin 1,000 mg tablet 1,000 mg PO DAILY #180 tabs 09/17/22 03/23/23 Previous Rx's Medication Instructions Recorded atorvastatin 80 mg tablet 80 mg PO QPM #90 tabs 09/17/22 empagliflozin 25 mg tablet 25 mg PO DAILY #90 tabs 09/17/22 (Jardiance) lisinopril 20 mg tablet 20 mg PO DAILY #90 tab-caps 09/17/22 metformin 1,000 mg tablet 1,000 mg PO DAILY #180 tabs 09/17/22 Allergies Allergy/AdvReac Type Severity Reaction Status Date / Time adhesive Allergy Unknown Unverified 03/23/23 16:23 Penicillins Allergy Unknown Unverified 03/23/23 16:23 General Stated Complaint: Chest Pain LISA: 3 Review of Systems All systems reviewed & are unremarkable except as noted in HPI and below Constitutional Constitutional: Reports as per HPI Cardiovascular Cardiovascular: Reports chest pain, Reports chest pain at rest, Reports chest pain with activity, Denies diaphoresis, Denies leg edema and Denies dyspnea Respiratory Respiratory: Denies cough, Denies hemoptysis, Denies dyspnea and Denies wheezing Gastrointestinal Gastrointestinal: Reports as per HPI, Denies diarrhea, Denies nausea and Denies vomiting Musculoskeletal Musculoskeletal: Reports as per HPI and Reports other (Chest pain, worse with movement) Allergic/Immunologic Allergic/Immunologic: Denies wheezing PFSH All Active Problems (Updated 03/23/23 @ 21:13 by Shaniqua Wheeler NP) Hyperlipidemia (Chronic) Type 2 diabetes mellitus (Chronic ~2017) Essential hypertension (Acute) 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 No followup needed per patient. Had retroperitoneal lymphnode resection. Hypertensive retinopathy (05/02/13) [facility] 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 (07/28/94) 1994: [facility]/testicular cancer tx orchiectomy, XRT, chemotherapy - 2013: last abd/pelvic CT with contrast: negative/ 2016: macro hematuria; ordered to repeat CT: pt declined Surgical History H/O endarterectomy (~02/2020) 03/16/20 @ [facility]; Iliofemoral PROCEDURE 2007-[facility]; THROAT STRICTURE - food bolus impaction. 1993-[facility]; TESTICULAR CANCER: orchiectomy/XRT/chemo Family History Mother Depression Father , 71 Heart failure Brother No problems noted. Social History Smoking/Tobacco Use Status: Former Tobacco Use Smoking risk assessment performed?: Yes Caregiver/Support person: No Household members: spouse and children Housing: house Number of Children: 1 Communication Needs: None Education Level: college Details: some college. 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 [employer] Pets and animals: Yes Pets and animals: guinea pig(s) Sexually active: Yes Do you think of yourself as: straight/heterosexual Current gender identity: male What is your relationship status?: How often do you talk on the phone with friends or family?: three or more times per week How often do you get together with friends or relatives?: twice per week How often do you attend jainism or christian services?: decline to answer Do you belong to any clubs or organized social groups?: yes Panel score (0-1 are the most socially isolated patients): 3 What type of physical activity do you participate in: bicycling Duration: 15-30 minutes/day Frequency: 1-2 times per week Angie/Adventist: Restorationist Special angie needs: No Additional Social history: Enjoys golfing, biking, snowmobiling Exam Narrative Exam Narrative: Constitutional: Alert and oriented x3. Appears stated age. Normal body habitus. Head: Normocephalic, no trauma. Eyes: Pupils PERRL, Red reflex noted, EOM's intact. Eyelids symmetrical without lesions, discharge, or swelling. ENT: Bilateral TM's WNL, External ear normal to inspection, no mastoid TTP, swelling, or erythema, Nasal turbinates WNL, no nasal discharge. Normal dentition, Posterior pharynx WNL, no exudate. Chest: RRR, Normal S1, S2, distal pulses intact. Resp: Lungs clear to auscultation bilaterally, no wheezes, rales, or rhonchi. Abdomen: Soft, non-distended, Normoactive bowel sounds all 4 quads. Musculoskeletal: Normal gait, 5/5 strength to all four extremities. Skin: No suspicious rashes or lesions. Capillary refill less than 2 sec. Neurologic: Cranial nerves II-XII intact. Alert and oriented x 3. Motor: No deficits noted. Sensory: Intact bilaterally all 4 extremities. Reflexes: DTR's intact bilaterally.. Hematologic/Lymphatic: No ecchymosis, no lymphadenopathy. Course Vital Signs Vital signs: Vital Signs Temperature 36.4 C L 03/23/23 16:19 Pulse 101 H 03/23/23 16:19 Respiratory Rate 18 03/23/23 16:19 Blood Pressure 209/100 H 03/23/23 16:19 Pulse Oximetry 98 03/23/23 16:19 Temperature 36.4 C L 03/23/23 16:19 Pulse 101 H 03/23/23 16:19 Respiratory Rate 18 03/23/23 16:19 Respiratory Effort Normal 03/23/23 16:34 Blood Pressure 209/100 H 03/23/23 16:19 Blood Pressure Position Supine 03/23/23 16:19 Pulse Oximetry 98 03/23/23 16:19 Oxygen Delivery Method Room Air 03/23/23 16:19 Oxygen Flow Rate 0 03/23/23 16:19 Pain Level 8 03/23/23 16:19 Lab/Test Results Lab/Test Results: Laboratory Tests Range/Units 03/23/23 16:33 WBC (4.4-10.8) 10^3/uL 11.22 H RBC (4.36-5.78) 10^6/uL 4.74 Hgb (13.5-17.5) g/dL 14.0 Hct (40.0-50.0) % 39.8 L MCV (80-95) fL 84 MCH (27.0-33.0) pg 29.5 MCHC (32.0-36.0) % 35.2 RDW (11.8-14.1) % 13.2 Plt Count (130-400) 10^3/uL 252 MPV (8.0-11.0) fL 9.1 Immature Gran % 0.4 Neutrophils % 72.9 Lymphocytes % 19.4 Monocytes % 5.4 Eosinophils % 1.4 Basophils % 0.5 Nucleated RBC % (0.0-0.3) % 0.0 Absolute Neutrophils (1.2-6.7) 10^3/uL 8.18 H Absolute Lymphocytes (1.2-3.4) 10^3/uL 2.18 Absolute Monocytes (0.1-0.8) 10^3/uL 0.61 Absolute Eosinophils (0.0-0.7) 10^3/uL 0.16 Absolute Basophils (0.0-0.2) 10^3/uL 0.06
[2023-03-23] MEDS: nitroGLYcerin 0.4 MG TAB SL (16:50)
[2023-03-23] MEDS: Aspirin 81 MG CHEW 243 MG CH (16:50)
[2023-03-23] MEDS: Normal Saline 1,000 ML 125 ML IV (16:56)
[2023-03-23 17:00] LABS: ALT 43 U/L (16-63); AST 20 U/L (15-37); Alkaline Phosphatase 139 U/L (46-116); Anion Gap 9.4 mmol/L (3-11); BUN 17 mg/dL (7-18); Bilirubin, Total 0.6 mg/dL (0.2-1.0); CO2 27.6 mmol/L (21.0-32.0); CREATININE 1.1 mg/dL (0.70-1.30); Calcium 9.4 mg/dL (8.5-10.1); Chloride 102 mmol/L (98-107); Estimated GFR 82.29 (mL/min/1.73m2); Glucose 160 mg/dL (74-106); Magnesium 1.6 mg/dL (1.8-2.4); Potassium 4.1 mmol/L (3.5-5.1); Sodium 139 mmol/L (136-145); Total Protein 7.8 g/dL (6.4-8.2); Troponin I < 50 ng/L (<or=60)
[2023-03-23] MEDS: Magnesium Oxide 400 MG TAB PO (17:15)
[2023-03-23 17:26] LABS: Lab Add On Test DONE
[2023-03-23 17:43] LABS: INR 0.9 (0.9-1.1); PTT Activated 27.4 sec (21.5-31.9); Prothrombin Time 9.2 sec (9.3-11.0)
[2023-03-23 18:39] LABS: D-Dimer 332 ng/mlFEU (<500)
--- NOTE | 2023-03-23 19:00 | RT.EKG_ITS ---
APPROVED REPORT Exam: Resting ECG Reason for Exam: Repeat Patient Location: E HR:85 bpm ECG Measurements Heart Rate 85 AXIS AR 184 P 15 QRSd 115 QRS -30 QT 389 T 54 QTc 462 Conclusion Sinus rhythm...normal P axis, V-rate 60- 99 Incomplete right bundle branch block...QRSd >[address] segement elevation in V2 No ST segment or T wave abnormalities to suggest occlusive NC
--- NOTE | 2023-03-23 19:15 | DI.CT_ITS ---
Exam(s) CT CHEST PE CTA EXAM: CT CHEST PE CTA CLINICAL HISTORY: Intermittent chest pain, Hx of Periphreal vascular. TECHNIQUE: Imaging Protocol: CT angiography of the chest was performed using pulmonary embolus cecy col. Multi planar reconstructions were performed. CONTRAST MATERIAL: Intravenous: Omnipaque 350 Contrast volume: 100 cc COMPARISON: CR XR PORTABLE CHEST AP from 03/23/2023 FINDINGS: CHEST: PULMONARY ARTERIES: There are no intraluminal filling defects to suggest acute pulmonary emboli. LUNGS: There are no infiltrates nor evidence of pulmonary infarction.. There are no pleural effusions . MEDIASTINUM: There is no hilar nor mediastinal adenopathy. Visualized thyroid unremarkable. CARDIAC: Heart size is upper normal. There is no pericardial effusion.Caliber of the thoracic aorta is within normal limits. No evidence of dissection. There is no significant shift of the interventri cular septum. PARTIALLY VISUALIZED UPPERMOST ABDOMEN: No adrenal masses. OSSEOUS: No significant osseous lesions.No fractures.. IMPRESSION: 1. No evidence of acute pulmonary emboli. No evidence of pulmonary infarction.No pleural effusions. 2. No infiltrates nor intrathoracic adenopathy evident. 3. No evidence of aortic dissection nor pericardial effusion. No significant findings. RADIATION DOSE DELIVERED: 413.93mGy.cm Total DLP DATA REPOSITORY: All CT scans at this facility are submitted to the National Radiology Data Registry (NRDR) Dose Index Registry (DIR) with the [employer] (ACR). RADIATION OPTIMIZATION: All CT scans at this facility use at least one of these dose optimization te chniques: automated exposure control; mA and/or kV adjustment per patient size (includes targeted exa ms where dose is matched to clinical indication); or iterative reconstruction.
[2023-03-23] MEDS: Omnipaque 350 MG/ML 100 ML BTL IJ (19:38)
[2023-03-23] MEDS: Normal Saline - Diluent 50 ML VIAL IJ (19:39)
[2023-03-23 19:44] LABS: Troponin I < 50 ng/L (<or=60)
[2023-03-23] MEDS: Ketorolac 15 MG/ML VIAL IVP (19:50)
--- NOTE | 2023-03-23 20:16 | NUR.NOTE ---
Nursing Note: Report to Paloma MALDONADO
--- NOTE | 2023-03-23 20:28 | DI.VRAD_ITS ---
PROCEDURE INFORMATION: Exam: CTA Chest With Contrast Exam date and time: 03/23/2023 7:38 PM Age: 47 years old Clinical indication: Other: Intermittent chest pain, HX of periphral vascu TECHNIQUE: Imaging protocol: Computed tomographic angiography of the chest with contrast. Exam focused on the arteries. 3D rendering (Not supervised by radiologist): MIP and/or 3D reconstructed images were created by the technologist. Contrast material: 350; Contrast volume: 100 ml; Contrast route: INTRAVENOUS (IV); COMPARISON: CR XR PORTABLE CHEST AP 03/23/2023 4:59 PM FINDINGS: Pulmonary arteries: No pulmonary embolism identified. Aorta: No thoracic aortic aneurysm or dissection. Thyroid: Thyroid gland partially excluded from view but grossly unremarkable through its visualized portion. Lungs: No pulmonary consolidation. Pleural spaces: No pleural effusion or pneumothorax. Heart: Normal sized heart. Lymph nodes: No pathologically enlarged mediastinal or hilar lymph nodes. Liver: Probable fatty infiltration of the liver, difficult to confidently diagnose by CT imaging after administration of intravenous contrast. Bones/joints: Lower ribs partially excluded from view and incompletely evaluated. Otherwise, no acute fracture seen among the bones of the chest. Spinal degenerative change with small Schmorl's nodes and anterior osteophytes at multiple levels. Soft tissues: No gross soft tissue mass or fluid collection seen in the chest wall. IMPRESSION: 1. No active disease is seen in the chest. 2. Liver only partially visualized. Probable fatty infiltration of the liver, difficult to confidently diagnose by CT imaging after administration of intravenous contrast. Dictated and Authenticated by: London Restrepo MD. Ordering:SEBASTIAN Mcgovern MD
== END 2023-03-23 21:25 | disposition home or self-care (01) ==
PROVIDERS: Emergency Provider Registered Nurse Emergency; PCP Family Medicine
DX: R07.9 Chest pain, unspecified (principal); E83.42 Hypomagnesemia
CPT/HCPCS: 71275; 80053; 93005; 96374; 99285; 71045; 83735; 84484; 85025; 85379; 85610; 85730; 93010; 99284; J1885; J3490

== ENCOUNTER → 2023-04-19 00:45 | Outpatient (CLI) | payer BC, SELFPAY ==
--- NOTE | 2023-04-19 07:00 | DI.NM_ITS ---
APPROVED REPORT Exam: Exercise Treadmill Patient Location: Out-Patient Room/Bed: Stress Nurse: Tika Yusuf RN Ordering Provider:LEXIE RITCHIE MD, Contact Number: [phone] BMI: 27.11 Baseline Rhythm: Sinus Rhythm Indications: Chest pain Medical History Medical History: GERD, HLD, essential HTN, T2DM, chest pain, hypomagnesemia, intermittent claudicatio n of LLE due to atherosclerosis, h/o rhabdomyosarcoma, HTN retinopathy Cardiac Medications: Omeprazole, metformin, lisinopril, empagliflozin, diphenhydramine, atorvastatin, aspirin, amlodipine Allergies: Adhesive, penicillins Cardiac Risk Factors: Family hx, HTN, HLD, diabetes Previous Cardiac Procedures: None Pretest Chest Pain Characteristics: None Exercise History: Physically active Physical Disabilities: Left lower leg Lung Sounds: Clear to auscultation Heart Sounds: Regular Stress Test Details Test: Exercise stress testing was performed using a Moncho protocol. Nuclear Acquisition: Rest Tc-99m/Stress Tc-99m 1 day Rest Isotope: Tc-99m Sestamibi. Dose: 10.0 Date: 04/19/2023 Injection Time: 0900 Stress Isotope: Tc-99m Sestamibi. Dose: 31.0 Date: 04/19/2023 Injection Time: 1024 HR Resting HR Supine: 80 bpm Max Heart Rate (APMHR): 171.048742 bpm Resting HR Standin bpm Target HR (85% APMHR): 145.897739 bpm Max HR Achieved: 154 bpm % of APMHR: 90.06 Recovery HR: 95 bpm HR response to stress: Normal HR response to stress BP Resting BP Supine: 180/100 mmHg Resting BP Standin/100 mmHg Max BP: 254/58 mmHg Recovery BP: 194/80 mmHg BP response to stress: Abnormal hypertensive response to stress. ECG Resting ECG: Sinus Rhythm Ectopy: None Stress ECG: Sinus Tachycardia ST Change: No significant ST segment changes noted Arrhythmia: None Recovery ECG: Sinus Rhythm Recovery ST Change: No significant ST segment changes noted Recovery Arrhythmia: None Clinical Reason for Termination: Leg pain/Claudication Stress Symptoms: Leg Fatigue Exercise duration: 07 min58 sec Highest Stage Reached: Stage 3: 3.4 mph at 14% grade. Exercise capacity: 10.10 METs Angina Score: None Nelson Treadmill Score: 7.1 Rate Pressure Product: 04602 Stress ECG Conclusion 1. Resting electrocardiogram was within normal limits 2. Patient exercised on the Moncho protocol and completed a workload of 10.1 METS limited by leg fatig ue 3. Hypertension at rest. Hypertensive blood pressure response to exercise. Normal heart rate respon se to exercise. Patient achieved 90% of predicted heart rate for age 4. There was no electrocardiographic evidence of myocardial ischemia 5. There were no significant dysrhythmias 6. See MPI report Nelson Treadmill Score is 7.1 which is Low risk. Stress Test Summary STAGE Time (mins) Speed (mph) Grade (%) HR BP SpO2 SYMPTOMS METS Supine 80 180/100 98 Standing 85 180/100 1 3 1.7 10 106 184/94 97 Left leg pain 4.5 2 6 2.5 12 129 220/108 98 Left leg pain 7 3 9 3.4 14 154 Left leg pain 10 1 min recovery 135 254/58 98 Left leg pain 3 min recovery 103 232/64 98 LL pain starting to resolve 6 min recovery 95 194/80 98 LL pain tolerable at this time. BP noted to be high during exercise (max 254/58). Patient has hx of LL claudication which was causing pain but patient stated this was tolerable and wished to continue. Dr. Salguero aware. Left ambulatory i n no apparent stress. MPI Conclusion Myocardial perfusion is normal. There is no ischemia or evidence of prior infarction Calculated EF is 44% with normal wall motion. Visually EF appears higher Radiologist Interpretation Radiologist agrees with Order Dispatcher's Interpretation. Radiologist Interpretation by: Jose Machado MD Interpretation Date/Time: 04/21/2023 18:36:26
== END ==
PROVIDERS: PCP Family Medicine; Visit Provider Family Medicine
DX: R07.9 Chest pain, unspecified (principal)
CPT/HCPCS: 78452; 93017

== ENCOUNTER 2024-02-17 13:00 | Emergency (ER) | payer BC, SELFPAY ==
[2024-02-17] VITALS (11 sets, daily range): BP systolic 167–196; BP diastolic 73–91; PULSE 79–105; RESP 14–18; TEMP 36.5–36.8; O2SAT 95–99
[2024-02-17] MEDS: Ondansetron 4 MG/2 ML VIAL IVP (14:00)
[2024-02-17 14:01] LABS: Abs Immature Grans 0.03 10^3/uL (0.0-0.06); Absolute Basophil Count 0.07 10^3/uL (0.0-0.2); Absolute Eosinophil Count 0.19 10^3/uL (0.0-0.7); Absolute Lymphocyte Count 1.61 10^3/uL (1.2-3.4); Absolute Monocyte Count 0.59 10^3/uL (0.1-0.8); Absolute Neutrophil Count 7.69 10^3/uL (1.2-6.7); Basophils % 0.7 %; Eosinophils % 1.9 %; HCT 40.1 % (40.0-50.0); HGB 13.9 g/dL (13.5-17.5); Immature Grans % 0.3 %; Lymphocytes % 15.8 %; MCH 29.4 pg (27.0-33.0); MCHC 34.7 % (32.0-36.0); MCV 85 fL (80-95); MPV 9.1 fL (8.0-11.0); Monocytes % 5.8 %; Neutrophils % 75.5 %; Platelet Count 307 10^3/uL (130-400); RBC 4.73 10^6/uL (4.36-5.78); RDW 13.2 % (11.8-14.1); RDW-SD 40.5 fL; WBC 10.18 10^3/uL (4.4-10.8)
[2024-02-17 14:20] LABS: ALT 38 U/L (16-63); AST 19 U/L (15-37); Albumin 3.9 g/dL (3.4-5.0); Alkaline Phosphatase 148 U/L (46-116); Anion Gap 9.6 mmol/L (3-11); BUN 24 mg/dL (7-18); Bilirubin, Total 0.66 mg/dL (0.2-1.0); CO2 25.4 mmol/L (21.0-32.0); CREATININE 1.2 mg/dL (0.70-1.30); Calcium 9.6 mg/dL (8.5-10.1); Chloride 104 mmol/L (98-107); Estimated GFR 73.67 (mL/min/1.73m2); Glucose 168 mg/dL (74-106); Lipase 30 U/L (16-77); Potassium 4.6 mmol/L (3.5-5.1); Sodium 139 mmol/L (136-145); Total Protein 7.8 g/dL (6.4-8.2)
[2024-02-17] MEDS: Normal Saline 1,000 ML 1000 ML IV (14:22)
[2024-02-17 14:33] LABS: Bilirubin Negative (Negative); Blood Negative (Negative); Clarity Clear (Clear); Glucose >=1000 mg/dL (Negative); Ketones Trace mg/dL (Negative); Leukocyte Esterase Negative (Negative); Nitrite Negative (Negative); Urobilinogen 0.2 mg/dL (Up to 0.2); pH 5.5 (5-8)
[2024-02-17 14:39] LABS: Bacteria Rare HPF (Negative); C & S Indicated? No; Casts Negative LPF (Negative); Crystals Negative HPF (Negative); Epithelial Cells Rare HPF (Negative); Mucus Negative (Negative); RBC Negative HPF (0-2); WBC Negative HPF (0-5)
--- NOTE | 2024-02-17 15:15 | DI.CT_ITS ---
Exam(s) CT ABDOMEN PELVIS W EXAM: CT ABDOMEN PELVIS W CLINICAL HISTORY: low abd pain. TECHNIQUE: Imaging Protocol: Axial computed tomography images with coronal and sagittal reformatted images were created and reviewed CONTRAST MATERIAL: Intravenous: Omnipaque-350 100cc Oral: None COMPARISON: CT CT CHEST PE CTA from 03/23/2023 FINDINGS: VISUALIZED LUNG BASES: No nodules nor pleural effusions evident. ABDOMEN: There is no ascites. LIVER: There is mild hepatic steatosis. No discrete focal hepatic lesions nor dilatation of intrahep atic ducts. GALLBLADDER/BILIARY: No obvious gallbladder pathology. CBD is not dilated. PANCREAS: No evidence of pancreatic mass nor dilatation of the pancreatic duct. SPLEEN: Spleen is not enlarged. No obvious intrasplenic lesions. Splenic and portal veins are paten t. ADRENALS: There are no significant adrenal masses. KIDNEYS:No cysts evident. No solid renal masses. No calculi nor hydronephrosis.. ABDOMINAL AORTA: Abdominal aorta is heavily calcified not enlarged. There is also prominent calcific ation evident within the celiac artery and its branches, the SMA, and the bilateral renal arteries. There surgical clips in the aortic region around L1 level. Common iliac arteries are heavily calcifi ed but not enlarged. Left external iliac arteries calcified but not enlarged. Right external iliac artery is not calcified. There is evidence of surgery in the left groin in the region of the femoral artery. LYMPH NODES:There is no retroperitoneal nor paraaortic adenopathy. ABDOMINAL WALL: Evidence of prior surgery. No evidence of significant anterior abdominal wall nor in guinal hernia. GI: There is no evidence of bowel obstruction, free air, nor abscess. There are no ischemic appearing bowel loops. PELVIS: GI: No evidence of appendicitis.No evidence of sigmoid diverticulitis. LYMPH NODES: There is no intrapelvic nor inguinal adenopathy. REPRODUCTIVE: Prostate not enlarged. Seminal vesicles unremarkable. URINARY BLADDER: No calculi nor obvious masses evident OSSEOUS: Generalized osteopenia in the vertebrae but no compression fractures. No facet malalignment . No significant disc space narrowing. IMPRESSION: 1. Heavily calcified abdominal aorta and iliac arteries this extends down the left external iliac art dante. There is relative sparing of the right external iliac artery. Evidence of previous surgery in left groin. 2. Heavily calcified abdominal aorta as well as calcification in the celiac artery and its branches a nd the superior mesenteric artery and inferior mesenteric artery. No ischemic bowel loops identified . No ascites. 3. Evidence of previous abdominal surgery. No evidence of bowel obstruction, free air, nor abscess. 4. If there is a history of ???abdominal angina'' than CT angiography of the abdomen-pelvis can be pe rformed. Discussed with ER provider RADIATION DOSE DELIVERED: 712.54mGy.cm Total DLP DATA REPOSITORY: All CT scans at this facility are submitted to the National Radiology Data Registry (NRDR) Dose Index Registry (DIR) with the [employer] (ACR). RADIATION OPTIMIZATION: All CT scans at this facility use at least one of these dose optimization te chniques: automated exposure control; mA and/or kV adjustment per patient size (includes targeted exa ms where dose is matched to clinical indication); or iterative reconstruction.
--- NOTE | 2024-02-17 15:22 | ED.GENADUL_ITS ---
Discharge Plan Discharge Details Chief Complaint: Abd Prob Primary Care Provider: Solange Wolf ED Provider: Andreas Smith Home Meds and New Rx's Prescriptions: No Action metformin 1,000 mg tablet 1,000 mg PO DAILY Qty: 180 3RF atorvastatin 80 mg tablet 80 mg PO QPM Qty: 90 3RF clindamycin HCl 300 mg capsule 300 mg PO TID Qty: 21 0RF omeprazole 20 MG tablet,delayed release (DR/EC) 20 mg PO DAILY PRN aspirin [Aspir-81] 81 MG tablet,delayed release (DR/EC) 81 mg PO DAILY Qty: 30 amlodipine 10 mg tablet 10 mg PO DAILY Qty: 30 3RF lisinopril 20 mg tablet 20 mg PO DAILY Qty: 90 3RF Rx Instructions: take one tablet daily Jardiance 25 mg tablet 25 mg PO DAILY Qty: 90 3RF (DME) compression waist high See Rx Instructions .Route .MEDSUPPLY Qty: 1 0RF Rx Instructions: As directed - please do fitting and assessment. Rybelsus 7 mg tablet 7 mg PO DAILY Qty: 30 3RF HPI General Mode of arrival: ambulatory . Date/Time Provider Initiated Documentation: 02/17/24 13:40 . Limitations to Documentation: no limitations . Information obtained by: patient and family . History of Present Illness 48 year old M presents to the emergency department with the chief complaint of Abdominal pain, described as moderate, with intensity rated at 7. Quality is described as aching, and is localized to the abdomen. Patient reports no radiation. Patient started experiencing this week(s) (3) and it has been intermittent. No relieving factors improve symptom(s), Eating worsens symptoms . Patient notes nausea/vomiting (Just nausea) and other (Watery diarrhea today). Patient did receive the following treatments prior to arrival, none Related Data Home Medications Medication Instructions Recorded Confirmed omeprazole 20 mg tablet,delayed 20 mg PO DAILY PRN 11/12/13 01/04/24 release aspirin 81 mg tablet,delayed 81 mg PO DAILY #30 tab-caps 02/09/17 01/04/24 release (Aspir-) amlodipine 10 mg tablet 10 mg PO DAILY #30 tabs 09/23/23 01/04/24 lisinopril 20 mg tablet 20 mg PO DAILY #90 tab-caps 09/23/23 01/04/24 empagliflozin 25 mg tablet 25 mg PO DAILY #90 tabs 09/26/23 01/04/24 (Jardiance) atorvastatin 80 mg tablet 80 mg PO QPM #90 tabs 09/28/23 01/04/24 metformin 1,000 mg tablet 1,000 mg PO DAILY #180 tabs 09/28/23 01/04/24 clindamycin HCl 300 mg capsule 300 mg PO TID #21 caps 01/04/24 01/04/24 compression waist high #1 ea 02/03/24 semaglutide 7 mg tablet (Rybelsus) 7 mg PO DAILY #30 tabs 02/11/24 Previous Rx's Medication Instructions Recorded amlodipine 10 mg tablet 10 mg PO DAILY #30 tabs 09/23/23 lisinopril 20 mg tablet 20 mg PO DAILY #90 tab-caps 09/23/23 empagliflozin 25 mg tablet 25 mg PO DAILY #90 tabs 09/26/23 (Jardiance) atorvastatin 80 mg tablet 80 mg PO QPM #90 tabs 09/28/23 metformin 1,000 mg tablet 1,000 mg PO DAILY #180 tabs 09/28/23 clindamycin HCl 300 mg capsule 300 mg PO TID #21 caps 01/04/24 compression waist high #1 ea 02/03/24 semaglutide 7 mg tablet (Rybelsus) 7 mg PO DAILY #30 tabs 02/11/24 Allergies Allergy/AdvReac Type Severity Reaction Status Date / Time adhesive Allergy Unknown Skin Rash Unverified 01/04/24 12:50 Penicillins Allergy Unknown Hives Unverified 01/04/24 12:50 General Stated Complaint: Abd Prob LISA: 3 Review of Systems Constitutional Constitutional: Denies fever(s) Cardiovascular Cardiovascular: Denies chest pain Respiratory Respiratory: Denies cough Gastrointestinal Gastrointestinal: Denies melena, Denies hematochezia, Reports diarrhea, Reports nausea and Denies vomiting Genitourinary Genitourinary: Denies hematuria and Denies dysuria Musculoskeletal Musculoskeletal: Denies back pain Integumentary/Breasts Skin/Breast: Denies rash Exam Const General: cooperative, healthy appearing, comfortable and no acute distress Orientation: alert, awake and oriented x3 HENMT Head: normal to inspection, normocephalic and atraumatic Mouth: moist mucous membranes Eyes General: appearance normal, both eyes and all related structures Conjunctivae: conjunctivae normal Neck Neck: normal visual inspection, full ROM, trachea midline and supple Resp Effort & Inspection: normal respiratory effort and able to speak in complete sentences Auscultation: clear to auscultation bilaterally Cardio Rate: regular rate Rhythm: regular rhythm GI Inspection: scar (Prior surgery) Palpation: soft, not firm, no guarding and tender in the LLQ and in the RLQ Auscultation: normal bowel sounds Back/Spine/Pelvis Back: no CVA tenderness and No back tenderness Skin General skin exam: no rashes or lesions noted Neuro General: patient alert, patient awake, moves all extremities and no focal motor deficits Cognition: normal cognition Speech: speech normal Gait: normal gait Sensory Exam: no sensory deficits noted Psych Appearance: grossly normal Mental Status: mental status grossly normal Course Vital Signs Vital signs: Vital Signs Temperature 36.8 C 02/17/24 13:16 Pulse 105 H 02/17/24 13:16 Respiratory Rate 18 02/17/24 13:16 Blood Pressure 167/91 H 02/17/24 13:16 Pulse Oximetry 99 02/17/24 13:16 Temperature 36.5 C 02/17/24 14:32 Temperature Source Tympanic 02/17/24 14:32 Pulse 84 02/17/24 14:32 Respiratory Rate 14 02/17/24 14:32 Blood Pressure 172/73 H 02/17/24 14:32 Blood Pressure Position Sitting 02/17/24 13:16 Pulse Oximetry 96 02/17/24 14:32 Oxygen Delivery Method Room Air 02/17/24 14:32 Oxygen Flow Rate 0 02/17/24 14:32 Pain Level 0 02/17/24 14:32 Lab/Test Results Lab/Test Results: Laboratory Tests Range/Units 02/17/24 02/17/24 13:52 14:20 WBC (4.4-10.8) 10^3/uL 10.18 RBC (4.36-5.78) 10^6/uL 4.73 Hgb (13.5-17.5) g/dL 13.9 Hct (40.0-50.0) % 40.1 MCV (80-95) fL 85 MCH (27.0-33.0) pg 29.4 MCHC (32.0-36.0) % 34.7 RDW (11.8-14.1) % 13.2 Plt Count (130-400) 10^3/uL 307 MPV (8.0-11.0) fL 9.1 Immature Gran % % 0.3 Neutrophils % % 75.5 Lymphocytes % % 15.8 Monocytes % % 5.8 Eosinophils % % 1.9 Basophils % % 0.7 Nucleated RBC % (0.0-0.3) % 0.0 Absolute Neutrophils (1.2-6.7) 10^3/uL 7.69 H Absolute Lymphocytes (1.2-3.4) 10^3/uL 1.61 Absolute Monocytes (0.1-0.8) 10^3/uL 0.59 Absolute Eosinophils (0.0-0.7) 10^3/uL 0.19 Absolute Basophils (0.0-0.2) 10^3/uL 0.07 Sodium (136-145) mmol/L 139 Potassium (3.5-5.1) mmol/L 4.6 Chloride (98-107) mmol/L 104 Carbon Dioxide (21.0-32.0) mmol/L 25.4 Anion Gap (3-11) mmol/L 9.6 BUN (7-18) mg/dL 24 H Creatinine (0.70-1.30) mg/dL 1.2 Est GFR (CKD-EPI 2020) (mL/min/1.73m2) 73.67 Glucose (74-106) mg/dL 168 H Calcium (8.5-10.1) mg/dL 9.6 Total Bilirubin (0.2-1.0) mg/dL 0.66 AST (15-37) U/L 19 ALT (16-63) U/L 38 Alkaline Phosphatase (46-116) U/L 148 H Total Protein (6.4-8.2) g/dL 7.8 Albumin (3.4-5.0) g/dL 3.9 Lipase (16-77) U/L 30 Urine Color (Yellow) Yellow Urine Clarity (Clear) Clear Urine pH (5-8) 5.5 Ur Specific [place] (1.005-1.025) 1.010 Urine Protein (Neg-Trace) mg/dL Negative Urine Ketones (Negative) mg/dL Trace H Urine Blood (Negative) Negative Urine Nitrite (Negative) Negative Urine Bilirubin (Negative) Negative Urine Urobilinogen (Up to 0.2) mg/dL 0.2 Ur Leukocyte Esterase (Negative) Negative Urine RBC (0-2) HPF Negative Urine WBC (0-5) HPF Negative Ur Epithelial Cells (Negative) HPF Rare Urine Crystals (Negative) HPF Negative Urine Bacteria (Negative) HPF Rare Urine Casts (Negative) LPF Negative Urine Mucus (Negative) Negative Ur Culture Indicated? 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 Intermittent over the past 3 weeks, progressively worse. Today with watery stool. Did take antibiotics last month for a dental infection. Symptoms seem to be worse after eating. Clinically patient appears well, nontoxic, does have bilateral lower abdominal discomfort but does not feel surgical at this time. Plan to obtain CBC, CMP, lipase, urinalysis. Will give IV fluid and IV Zofran. Will also obtain C. difficile testing given his recent antibiotic use. With his extensive prior abdominal surgery, lower abdominal discomfort that waxes and wanes, worse with eating, I will obtain a CT to further evaluate for possible partial progressing to full bowel obstruction. Both patient and are comfortable with this plan. Initial laboratory values are unremarkable for emergent process. CBC of 10.18. Electrolytes unremarkable. Creatinine 1.2 with a GFR 73.67. Alkaline phosphatase 148, otherwise LFTs are normal. Urinalysis trace ketones, greater than 1000 glucose Discussed findings with patient and family. Awaiting the patient to provide a stool sample as well as the CT of his abdomen and pelvis. Case signed out to Julia Malone NP with C. difficile and CT pending. Disposition will be based upon these findings. Standard discharge and return precautions were provided. Patient understands, is agreeable to this plan, and has no additional questions or concerns upon discharge. This documentation was generated using [employer] system, please disregard any oddities of phrase or misspellings. Medical Records Medical records reviewed: Yes I reviewed the patient's medical records. 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 No followup needed per patient. Had retroperitoneal lymphnode resection. 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 1993[place] [place]; TESTICULAR CANCER: orchiectomy/XRT/chemo Family History Mother Depression Father , 71 Heart failure Brother No problems noted. Social History Smoking/Tobacco Use Status: Former Tobacco Use Smoking risk assessment performed?: Yes Alcohol Intake: current Alcohol Intake frequency: a few times a week Alcohol type: beer and hard liquor Drug use: Daily Substance use type: marijuana Details: sleep gummies Caregiver/Support person: No Household members: spouse and children Housing: house Number of Children: 1 Communication Needs: None Education Level: college Details: some college. 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 [employer] Pets and animals: Yes Pets and animals: guinea pig(s) Sexually active: Yes Do you think of yourself as: straight/heterosexual Current gender identity: male What is your relationship status?: How often do you talk on the phone with friends or family?: three or more times per week How often do you get together with friends or relatives?: twice per week How often do you attend rastafari or adventist services?: decline to answer Do you belong to any clubs or organized social groups?: yes Panel score (0-1 are the most socially isolated patients): 3 What type of physical activity do you participate in: bicycling Duration: 15-30 minutes/day Frequency: 1-2 times per week Angie/Sabianism: Adventist Special angie needs: No Additional Social history: Enjoys golfing, biking, snowmobiling
[2024-02-17] MEDS: Normal Saline - Diluent 50 ML VIAL IJ (16:59)
[2024-02-17] MEDS: Omnipaque 350 MG/ML 100 ML BTL IJ (17:00)
--- NOTE | 2024-02-17 17:01 | ED.PROG_ITS ---
Date of service: 02/17/24 Time of Service: 16:00 Medical Decision Making Handoff report received from annie No. Please see his note for full HPI, ROS, physical exam, and lab interpretation. Sameer is a 48-year-old male with history of T2DM, remote testicular cancer history with abdominal lymph node resection and radiation with complication of femoral bypass who presents to the emergency department today for 3-week history of lower abdominal pain accompanied by nausea and diarrhea that has been increasing since onset. He was treated for dental infection 1 month ago. Symptoms are aggravated by eating. He has lost approximately 20 pounds since onset. I did perform a brief physical exam. Patient is alert and oriented, no acute distress. Abdomen is soft, nondistended, mild discomfort with palpation of lower abdomen. Hyperactive bowel sounds quadrants. He reports pain is describe d as a burning, currently reported as a 5 out of 10. Labs reassuring, unremarkable CBC and CMP, only slightly elevated BUN. UA notable only for trace ketones and glucose greater than 1000. Lactate 0.7. CT abdomen/pelvis performed, extensive calcifications noted. Discussed case with Dr. Machado, radiologist. Findings may indicate postprandial abdominal angina. Consulted with Dr. Rodriguez, vascular surgery at [facility]. Reviewed labs and CT images. She reports that this looks like it may be a more chronic process, no evidence of bowel ischemia on CT. Mesenteric duplex imaging indicated, she will place a referral for patient to follow-up in clinic. Discussed pain management with contaminated land consultant, she recommends Tylenol for discomfort. Occasional NSAIDs also okay. Frequent small meals and protein shakes are recommended. Emergent CTA indicated if patient develops worsening pain, blood in stool, inability to eat, or if symptoms change significantly. Reviewed discharge instructions with patient and his , including red flags indicating need for emergency imaging. They are agreeable with plan of care. Imaging Data Radiologic Study: Radiologist's impression: Exam(s) CT ABDOMEN PELVIS W EXAM: CT ABDOMEN PELVIS W CLINICAL HISTORY: low abd pain. TECHNIQUE: Imaging Protocol: Axial computed tomography images with coronal and sagittal reformatted images were created and reviewed CONTRAST MATERIAL: Intravenous: Omnipaque-350 100cc Oral: None COMPARISON: CT CT CHEST PE CTA from 03/23/2023 FINDINGS: VISUALIZED LUNG BASES: No nodules nor pleural effusions evident. ABDOMEN: There is no ascites. LIVER: There is mild hepatic steatosis. No discrete focal hepatic lesions nor dilatation of intrahepatic ducts. GALLBLADDER/BILIARY: No obvious gallbladder pathology. CBD is not dilated. PANCREAS: No evidence of pancreatic mass nor dilatation of the pancreatic duct. SPLEEN: Spleen is not enlarged. No obvious intrasplenic lesions. Splenic and portal veins are patent. ADRENALS: There are no significant adrenal masses. KIDNEYS:No cysts evident. No solid renal masses. No calculi nor hydronephrosis.. ABDOMINAL AORTA: Abdominal aorta is heavily calcified not enlarged. There is also prominent calcification evident within the celiac artery and its branches, the SMA, and the bilateral renal arteries. There surgical clips in the aortic region around L1 level. Common iliac arteries are heavily calcified but not enlarged. Left external iliac arteries calcified but not enlarged. Right external iliac artery is not calcified. There is evidence of surgery in the left groin in the region of the femoral artery. LYMPH NODES:There is no retroperitoneal nor paraaortic adenopathy. ABDOMINAL WALL: Evidence of prior surgery. No evidence of significant anterior abdominal wall nor inguinal hernia. GI: There is no evidence of bowel obstruction, free air, nor abscess. There are no ischemic appearing bowel loops. PELVIS: GI: No evidence of appendicitis.No evidence of sigmoid diverticulitis. LYMPH NODES: There is no intrapelvic nor inguinal adenopathy. REPRODUCTIVE: Prostate not enlarged. Seminal vesicles unremarkable. URINARY BLADDER: No calculi nor obvious masses evident OSSEOUS: Generalized osteopenia in the vertebrae but no compression fractures. No facet malalignment. No significant disc space narrowing. IMPRESSION: 1. Heavily calcified abdominal aorta and iliac arteries this extends down the left external iliac artery. There is relative sparing of the right external iliac artery. Evidence of previous surgery in left groin. 2. Heavily calcified abdominal aorta as well as calcification in the celiac artery and its branches and the superior mesenteric artery and inferior mesenteric artery. No ischemic bowel loops identified. No ascites. 3. Evidence of previous abdominal surgery. No evidence of bowel obstruction, free air, nor abscess. 4. If there is a history of ?abdominal angina'' than CT angiography of the abdomen-pelvis can be performed. Quality:[facility] Health Related Social Needs: No Data to Display Sign Out Sign Out Data: Sign Out Comment: Lower abdominal pain intermittent for 3 weeks with nausea and watery diarrhea. Workup thus far negative. Awaiting C. difficile, CT abdomen and pelvis, and final disposition Last updated by Andreas Smith PA at 02/17/24 15:54 Discharge Plan Disposition Patient Disposition: Home Discharge Details Clinical Impression: Abdominal pain Primary Care Provider: Solange Wolf ED Provider: Julia Mirza Home Meds and New Rx's Prescriptions: Continued metformin 1,000 mg tablet 1,000 mg PO DAILY Qty: 180 3RF atorvastatin 80 mg tablet 80 mg PO QPM Qty: 90 3RF clindamycin HCl 300 mg capsule 300 mg PO TID Qty: 21 0RF omeprazole 20 MG tablet,delayed release (DR/EC) 20 mg PO DAILY PRN aspirin [Aspir-81] 81 MG tablet,delayed release (DR/EC) 81 mg PO DAILY Qty: 30 amlodipine 10 mg tablet 10 mg PO DAILY Qty: 30 3RF lisinopril 20 mg tablet 20 mg PO DAILY Qty: 90 3RF Rx Instructions: take one tablet daily Jardiance 25 mg tablet 25 mg PO DAILY Qty: 90 3RF (DME) compression waist high See Rx Instructions .Route .MEDSUPPLY Qty: 1 0RF Rx Instructions: As directed - please do fitting and assessment. Rybelsus 7 mg tablet 7 mg PO DAILY Qty: 30 3RF Discharge Instructions Additional Instructions: Please follow-up with [facility] vascular surgery first thing Tuesday morning to schedule a follow-up appointment. A referral has been placed for you by the on- call vascular surgeon I spoke to today. Follow-up with your primary care provider as discussed as well. You may use Tylenol 650 mg every 6 hours as needed for discomfort. I recommend that you avoid ibuprofen, as this may increase your risk of GI bleeding with the baby aspirin he takes daily. Please eat frequent small meals. Protein shakes are a good idea for nutrition. Return to emergency care if you develop blood in your stool, severe abdominal pain, inability to hold food down, or if you are very worried and need to be rechecked again immediately. Referrals: Solange Wolf MD [Primary Care Provider] -
[2024-02-17] MEDS: Ketorolac 15 MG/ML VIAL IVP (18:24)
[2024-02-17 18:29] LABS: C Diff PCR Negative (Negative)
[2024-02-17 18:37] LABS: Lactate 0.7 mmol/L (0.6-1.4)
== END 2024-02-17 19:52 | disposition home or self-care (01) ==
PROVIDERS: Physician Assistant; Emergency Provider Nurse Practitioner Family; PCP Family Medicine
DX: R10.30 Lower abdominal pain, unspecified (principal); R11.0 Nausea; R19.7 Diarrhea, unspecified; Z85.47 Personal history of malignant neoplasm of testis
CPT/HCPCS: 00123; 80053; 83690; 87493; 96361; 96374; 96375; 99285; 74177; 81003; 81015; 83605; 85025; 99283; J1885; J2405; J3490

== ENCOUNTER 2024-04-06 09:05 | Outpatient (REF) | payer BC, SELFPAY ==
[2024-04-06 15:04] LABS: COMMENT (LAB VIEW ONLY) 43.13 mg/dL; Microalb ug/mg Crea 40.3 ug/mg Cr
== END 2024-04-06 09:06 | disposition home or self-care (01) ==
LOC: LBN 09:05
PROVIDERS: PCP Family Medicine; Visit Provider Family Medicine
DX: E11.29 Type 2 diabetes mellitus with other diabetic kidney complication (principal); R80.8 Other proteinuria
CPT/HCPCS: 82043; 82570

== ENCOUNTER 2024-05-30 15:11 | Outpatient (CLI) | payer BC, SELFPAY ==
--- NOTE | 2024-05-30 13:15 | DI.RAD_ITS ---
Exam(s) XR SHOULDER RT COMPLETE 2+V EXAM: XR SHOULDER RT COMPLETE 2+V CLINICAL HISTORY: RIGHT SHOULDER PAIN. TECHNIQUE: 2D digital imaging was performed of the right shoulder. Two images were obtained. Grash ey and axillary views were obtained. COMPARISON: CR XR PORTABLE CHEST AP from 03/23/2023 FINDINGS: BONES: No acute fracture is present. No bony destructive lesion is seen. JOINTS: There are mild degenerative changes seen at the acromioclavicular joint. The glenohumeral luis alberto int is well maintained. SOFT TISSUE: There are soft tissue calcifications adjacent to the greater tuberosity consistent with calcific tendinitis. IMPRESSION: Calcific tendinitis of the right shoulder with mild degenerative changes seen at the acromioclavicula r joint. DATA REPOSITORY: RADIATION DOSE DELIVERED:
== END 2024-05-30 15:12 | disposition home or self-care (01) ==
LOC: DIORS 15:11
PROVIDERS: PCP Family Medicine; Visit Provider Student in an Organized Health Care Education/Training Program
DX: M75.31 Calcific tendinitis of right shoulder (principal)
CPT/HCPCS: 73030

== ENCOUNTER 2024-08-01 15:31 | Outpatient (CLI) | payer BC, SELFPAY ==
--- NOTE | 2024-08-01 09:03 | DI.RAD_ITS ---
Exam(s) XR SHOULDER RT COMPLETE 2+V EXAM: XR SHOULDER RT COMPLETE 2+V CLINICAL HISTORY: F/U SHOULDER PAIN. TECHNIQUE: 2D digital imaging was performed. Five views. COMPARISON: No exams were available for comparison FINDINGS: BONES: No acute fracture is present. No bony destructive lesion is seen. JOINTS: No dislocation present. No change in calcification seen above the humeral head, consistent w ith calcific tendinosis. The glenohumeral joint space is maintained. No significant spurring at the AC joint SOFT TISSUE: Normal. IMPRESSION: Stable appearance of calcific tendinosis. DATA REPOSITORY: RADIATION DOSE DELIVERED:
== END 2024-08-01 15:32 | disposition home or self-care (01) ==
LOC: DIORS 15:32
PROVIDERS: PCP Family Medicine; Visit Provider Student in an Organized Health Care Education/Training Program
DX: M75.31 Calcific tendinitis of right shoulder (principal)
CPT/HCPCS: 73030

== ENCOUNTER 2024-08-13 01:15 | Outpatient (CLI) | payer BC, SELFPAY ==
--- NOTE | 2024-08-13 08:15 | DI.MRI_ITS ---
Exam(s) MR UPPER JOINT RT WO EXAM: MR UPPER JOINT RT WO CLINICAL HISTORY: R SHOULDER PAIN,calcific tendinitis rt shoulder,m75.31 TECHNIQUE: Multiplanar multisequence MRI of the shoulder was performed. COMPARISON: CR XR SHOULDER RT COMPLETE 2+V from 05/30/2024 CR XR SHOULDER RT COMPLETE 2+V from 08/01/2024 FINDINGS: MARROW:There is no evidence of fracture, Hill-Sachs deformity, nor ominous osseous lesions. GLENOHUMERAL JOINT: No prominent joint effusion or loose intra-articular bodies. No significant ben cular cartilage loss. No osteophytes. There are no degenerative subarticular cysts in the osseous g lenoid. Confluent small degenerative subarticular cysts are noted in the posterolateral humeral head . ROTATOR CUFF MECHANISM: AC JOINT/ACROMIUM: Minimal degenerative changes in the AC joint.. There is no evidence of os acromiale. Supraspinatus: There far confluent foci of hypointense signal intimately associated with the supraspi natus and overlying subacromial bursa, these corresponding to the prominent soft tissue calcification seen on recent plain films and consistent with calcific tendinosis/bursitis. The size of these calc ifications are 1.9 cm AP by 1.3 cm wide by 5 mm. There is some mild increased signal in the supraspi natus tendon adjacent to the calcification as well as at the foot pad insertion. There is no full-th ickness tear. No muscle atrophy nor retraction of the musculotendinous juncture. Infraspinatus: The above described calcification in the subacromial space is also intimately related to the most anterior aspect of the infraspinatus tendon. There is mild infraspinatus tendinitis sign al. No high-grade tear. No atrophy. No retraction Teres Minor: Intact. No evidence of tear nor muscle atrophy. Subscapularis/anterior cuff: Intact. No abnormal signal at the level of the multipennate insertional fibers. No significant tear nor atrophy. BICEPS TENDON: Exhibits normal position within the intertubercular groove. No evidence of tear. There is a small amount of fluid within the biceps tendon sheath within the intertubercular fossa. LABRUM: No labral tear identified. No evidence of paralabral cyst. The labroligamentous capsular co mplex appears intact with no evidence of avulsion of the anterior-inferior labrum, capsule, inferior glenohumeral ligament complex nor disruption of the scapular periosteum. No Bankart lesion. QUADRILATERAL SPACE: No evidence of mass in the region of the axillary nerve and dorsal circumflex hu meral vessels. Visualized triceps muscle at this level appears unremarkable. IMPRESSION: 1. Prominent soft tissue calcification intimately associated with the supraspinatus tendon and most a nterior aspect of the infraspinatus tendon with mild projection into the overlying subacromial bursa. There is mild tendinitis signal in these tendons also evident. No high-grade rotator cuff tendon t ear. No atrophy. 2. No evidence of biceps tendon tear and no evidence of labral tear. 3. Minimal degenerative changes. No large joint effusion. No loose bodies within the joint space. DATA REPOSITORY:
== END 2024-08-13 01:35 ==
LOC: DI 01:15
PROVIDERS: PCP Family Medicine; Visit Provider Student in an Organized Health Care Education/Training Program
DX: M75.31 Calcific tendinitis of right shoulder (principal)
CPT/HCPCS: 73221